=== PATIENT | male | born 1940 | race Caucasian/White ===

== ENCOUNTER 2023-05-29 15:45 | Outpatient (CLI) | payer MEDICARE, SELFPAY ==
--- NOTE | 2023-05-29 16:00 | MR_ITS ---
[facility] [place] [address] [facility] [address] Phone:?[phone] Fax:?[phone] Referring Physician Information: Nilson Chavez M.D. [address] [facility] [address] Phone:?[phone] Fax:?[phone] Patient:Tammy Hidalgo D.O.B:?1940 Sex:?Male Phone:?[phone] [facility] MRN:?[id number] Exam Date:?05/29/2023 EXAM: MRI EXAMINATION OF THE RIGHT WRIST WITHOUT & WITH CONTRAST CLINICAL INFORMATION: Male, 82 years old, with right wrist lump/swelling and history of prostate cancer. INDICATION: Evaluate wrist mass. PRIOR SURGERY: None reported. PLAIN FILMS: None available. COMPARISONS: No prior MRIs available. TECHNICAL INFORMATION: Using a 1.5T MR scanner and a localizing surface coil: coronals: T1, T2, PDFS, and T1FS sagittals: PDFS, T1FS axials: PD, PDFS, T1FS SEDATION: None CONTRAST: 20 mL of gadoterate meglumine was administered intravenously. FINDINGS: Bones and joints: Marked chondral thinning, osteophytosis, and irregularity throughout the distal radioulnar joint, with prominent subcortical cystic and/or erosive change in the distal ulna (axial PDFS series 15 image 11 and coronal T2FS series 12 image 21) this is associated with a large distal radioulnar joint effusion as well as nodular regions of synovitis dorsally measuring approximately 2.0 x 1.1 x 2.7 cm and volarly measuring 1.4 x 0.9 x 1.6 cm (axial PDFS series 15 image 11 and sagittal PDFS series 19 image 18). Moderate edema- like signal is present throughout the lunate and triquetrum with focal cystic/erosive changes throughout the trapezoid, capitate, and hamate. Mild chondral thinning and osteophytosis, and irregularity throughout the radiocarpal, STT, and 1st CMC joints. Triangular fibrocartilage: Chronic broad-based tearing throughout the foveal, ulnar styloid, and central disc of the TFCC. Additionally, the radial attachments are diminutive and irregular in appearance. Ligaments: Chronic disruption of the scapholunate ligaments with widening of the scapholunate interval to approximately 5 mm and early proximal migration of the capitate (axial PDFS series 15 image 6). Moderate thickening and irregularity of the lunotriquetral ligaments, without discrete tear. Alignment:?Type I lunate. The capitolunate angle measures 12? (<30? normal). The scapholunate angle measures 48? (30?-60? normal). Ulnar variance is 7 mm negative. Tendons: The flexor and extensor tendons are suboptimally visualized due to technical factors. However, there is no definite evidence of tendon disruption/tear. Neurovascular structures: The median nerve appears normal in caliber and signal intensity throughout its course including within the carpal tunnel. The ulnar nerve is intact and normal in appearance. No evidence for intrinsic/extrinsic mass within Guyon's canal. Soft tissues: No dorsal or other soft tissue ganglion cyst. No synovitis. IMPRESSION: 1. 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 Notably, there is a large joint effusion as well as nodular or regions of synovitis dorsally and volarly, the larger of which measures 2.0 x 1.1 x 2.7 cm and likely reflects the clinically palpable mass. There is no definite evidence of a suspicious soft tissue tissue or osseous lesion. The findings in the distal ulna likely reflect subchondral cystic change or erosions. 2. 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 3. Broad-based, chronic, high-grade tearing involving nearly the entire TFCC. 4. Mild osteoarthritis of the 1st CMC, STT, and radiocarpal joints. 5. Chronic low-grade sprains of the dorsal and volar lunotriquetral ligaments, without tear. 6. Moderate bone marrow edema throughout the lunate and capitate, likely degenerative. 7. No definite myotendinous abnormality. However, the flexor and extensor tendons are suboptimally visualized. BC Electronically signed on 05/30/2023 8:18:00 AM by Alexei Gaines M.D.
== END 2023-05-29 15:46 | disposition home or self-care (01) ==
PROVIDERS: PCP Orthopaedic Surgery; Visit Provider Orthopaedic Surgery
DX: R22.31 Localized swelling, mass and lump, right upper limb (principal); M19.031 Primary osteoarthritis, right wrist; S63.591A Other specified sprain of right wrist, initial encounter
CPT/HCPCS: 73223; A9575

== ENCOUNTER 2024-04-10 05:20 | Outpatient (CLI) | payer MEDICARE, SELFPAY | END 2024-04-10 05:21 | disposition home or self-care (01) | LOC: AMB 04-12 01:52 | PROVIDERS: Visit Provider Family Medicine | DX: R42 Dizziness and giddiness (principal) | CPT/HCPCS: A0998 ==

== ENCOUNTER 2024-07-09 13:00 | Outpatient (RCR) | payer MEDICARE, SELFPAY ==
--- OUTSIDE RECORDS SUMMARY | 2024-07-04 09:37 | XMS_ITS | Clinical Summary ---
Author Organization [facility] Address [place], [place] [address] Care Team Providers Care Candy Dipper Hand Name Role Phone Katarina Stiles Primary Care Provider [phone] Allergies Active Allergy Reactions Criticality Noted Date Comments Ceftriaxone Sodium Itching,Other - Desc ribe In Comment Field,Rash 02/26/2024 Enoxaparin Rash Medium 12/21/2012 Penicillins *Unknown,Rash Medium 12/21/2012 Per pt Sulfa (Sulfonamide Antibiotics) Rash,*Unknown Medium 12/21/2012 unsure Medications multivitamins with minerals tablet Take 1 Tab by mouth. Active ciclopirox 0.77% cream (LOPROX) 0.77 % cream Apply topically to affected area(s). 0 Active clobetasol cream 0.05% (TEMOVATE) 0.05 % cream Apply topically to affected area(s). 0 Active hydrocortisone 2.5% cream Apply to AA at bedtime PRN 9 Active gabapentin (NEURONTIN) 300 mg capsule Take 300 mg by mouth. 3 Active atorvastatin (LIPITOR) 40 mg tabletIndications :Coronary artery disease involving [place] coronary artery of [place] heart without angina pectoris Take 1 Tablet (40 mg) by mouth at bedtime. 90 Tablet 3 4 Active Eliquis 5 mg tabletIndications :Paroxysmal atrial fibrillation (HC) Take 1 Tablet (5 mg) by mouth two times daily. 180 Tablet 3 4 Active ferrous sulfate, 65 mg elemental, tabletIndications :Iron deficiency anemia secondary to inadequate dietary iron intake Take 1 Tablet (325 mg) by mouth once daily with a meal. 90 Tablet 3 4 Active nitroglycerin (NITROSTAT) 0.4 mg sublingual tabletIndications :Coronary artery disease involving [place] coronary artery of [place] heart without angina pectoris Place 1 Tablet (0.4 mg) under the tongue every 5 minutes if needed for Chest pain 1st choice. Up to 3 tablets in 15 minutes. 10 Tablet 1 4 Active traZODone (DESYREL) 100 mg tabletIndications :Insomnia, idiopathic Take 1 Tablet (100 mg) by mouth at bedtime. 90 Tablet 3 4 Active nystatin powder (MYCOSTATIN) powderIndications :Intertrigo Apply 1 Strip topically to affected area(s) 2 times daily if needed (Rash). 60 g 1 4 Active melatonin 10 mg tab Take 5 mg by mouth at bedtime. Active clindamycin (CLEOCIN) 300 mg capsule Take 2 Capsules (600 mg) by mouth one time if needed (take 2 capsules (600 mg) one hour prior to any dental cleanings). 4 Capsule 2 4 Active clindamycin (CLEOCIN) 300 mg capsuleIndication s:Joint Infection Take 1 Capsule (300 mg) by mouth three times daily. 4 Active torsemide (DEMADEX) 20 mg tabletIndications :Benign essential hypertension Take 1 Tablet (20 mg) by mouth once daily if needed (For weight gain above 3 pounds in 1 day OR 5 pounds in 1 week. SOB or edema.). HOLD for blood pressure readings less than 105/60mmHg. 30 Tablet 1 4 Active metoprolol tartrate (LOPRESSOR) 25 mg tabletIndications :Benign essential hypertension Take 1 Tablet (25 mg) by mouth two times daily. 4 Active sertraline (ZOLOFT) 50 mg tabletIndications :Recurrent major depressive disorder, in full remission (HC) TAKE ONE TABLET BY MOUTH ONE TIME DAILY ALONG WITH 25MG TABLET FOR A TOTAL OF 75MG DAILY 30 Tablet 1 4 Active sertraline (ZOLOFT) 25 mg tabletIndications :Recurrent major depressive disorder, in full remission (HC) TAKE ONE TABLET BY MOUTH ONE TIME DAILY ALONG WITH 50MG TABLET FOR A TOTAL OF 75MG DAILY 30 Tablet 1 4 Active Active Problems Problem Noted Date Diagnosed Date S/P primary angioplasty with coronary stent 12/2023 Impaired fasting glucose 01/10/2024 Paroxysmal atrial fibrillation 01/10/2024 Iron deficiency anemia curly boogie to inadequate dietary iron intake 01/10/2024 Presbycusis of both ears 01/10/2024 Alcohol abuse with alcohol-induced disorder 08/31 Anemia with low platelet count 09/11/2023 HTN (hypertension) 02/02/2020 CA (myocardial infarction) 02/02/2020 Venous (peripheral) insufficiency 06/05/2019 Erectile dysfunction following radical prostatec pam 03/22/2019 Overview (02/06/2020): Added automatically from request for surgery [id number] Aortic dilatation 07/04/2018 Hearing difficulty of both ears 07/04/2018 Cellulitis of right lower extremity 04/07/2017 Advanced directives, counseling/discussion 03/20 Overview (02/06/2020): Advance Care Planning 03/20/2017: ACP Review of Chart / Resources Provided: Reviewed chart for advance care plan. Jose Ambrosio Gwen has no plan or code status on file. Discussed available resources and provided with information. Added by Laura Casey Coronary artery disease without angina pectoris 01/18/2016 SHAYY (generalized anxiety disorder) 01/18/2016 Major depression in complete remission 5 Benign essential hypertension 04/20/2015 Hyperlipidemia LDL goal <70 04/20/2015 Overview (02/06/2020): Diagnosis updated by automated process. Provider to review and confirm. History of total right hip arthroplasty 12/23/19 15 Status post revision of total hip replacement Trigger finger, right 12/22/2014 Allergic rhinitis due to pollen 11/20/2014 Malignant neoplasm of prostate 12/25/2012 Encounters Date Type Department Care Team Description 06/11/2024 10:30 AM FILM INSPECTOR Office Visit [facility] [address] [place] [address] Cole Arrieta MD Follow Up (Chronic atrial fibrillation ) 06/10/2024 Travel 06/05/2024 8:30 AM FILM INSPECTOR Orders Only [facility] [address] [place] [address] Lab, [place] [facility] 06/04/2024 Travel 05/03/2024 Refill [facility] [address] [place] [address] Katarina Stiles PA Refill Request (Sertraline, Sertraline) 04/25/2024 3:20 PM CDT Office Visit [facility] [address] [place] [address] Roshan Gross MD Suture Removal (Rt arm) 04/24/2024 Travel 04/17/[address] [place] [id number] Roslyn Laughlin PA Refill Request 04/16/2024 2:55 PM CDT Office Visit [facility] [address] [place] [address] Roshan Gross MD Follow Up (Rt arm wound, sutures) 04/15/2024 Travel 04/15/2024 Telephone [facility] [address] [place] [address] Katarina Stiles PA Outside Order (Needs fax) 04/11/2024 9:00 AM CDT Office Visit [address] [place] [address] Roslyn Laughlin PA Follow Up (4 week f/u. Recent labs. /DX: Benign essential hypertension [I10] /PT states feeling fine. /Yesterday morning he fell when going to the bathroom .* He felt very lightheaded /was told to only take 1/2 of benadryl/ ) 04/11/2024 Travel 04/10/2024 11:45 AM CDT Orders Only [facility] [address] [place] [address] Lab, [place] [facility] 04/10/2024 9:10 AM CDT Office Visit [facility] [address] [place] [address] Roshan Gross MD Concerns (Fell this morning, rt arm wound) 04/10/2024 Travel 04/10/2024 Travel 04/08/2024 Telephone [facility] [address] [place] [address] Katarina Stiles PA Form from Last 3 Months Immunizations Name Administration Dates Next Due DTP-HIB 01/22/1992 Hep B (Hepatitis B (Adult) R ecombinant Adjuvanted) 03/23/2016 Influenza, High-dose Inactivated 03/29/2024 Influenza, High-dose Quadriv alent Inactivated 05/16/2023 Pneumococcal Conj 20-valent (Prevnar 20) 022 Pneumococcal Poly,23-Valent (Pneumovax) 04/04/20 18,04/15/2005,07/08/2004 Pneumococcal conj 13-Valent (Prevnar 13) 017,03/23/2016 Pneumococcal conj 7-Valent (Prevnar 7) 5 RSV, Recombinant ADJ Reconst ituted (Arexvy 120MCG/0.5mL) 06/02/2023 Tdap 02/06/2024,05/21/2013 Zoster (Shingrix-RZV, recombinant) 06/11/2018, Zoster (Zostavax-ZVL, live) 04/17/2012 Social History Tobacco Use Types Packs/Day Years Used Date Smoking Tobacco: Former Cigarettes Smokeless Tobacco: Never Tobacco Cessation:Counseling Given: Yes Alcohol Use Standard Drinks/Week Comments Yes 2 (1 standard drink = 0.6 oz pur e alcohol) daily C Utilities Answer Date Recorded Do you have trouble paying f or utilities (for example, heat, electricity, water, phone)? Yes 01/10/2024 PHQ-2 Answer Date Recorded PHQ-2 TOTAL SCORE 1 01/10/2024 Social Connections Answer Date Recorded Do you often feel lonely or isolated from those around you? 0 01/10/2024 Financial Resource Strain Answer Date R ecorded Difficulty of Paying Living Expenses 3 01/10/2024 Difficulty of Paying Living Expenses Not on file 01/10/2024 Food Insecurity Answer Date Recorded Do you worry your food will run out before you are able to buy more? 1 01/10/2024 Transportation Needs Answer Date Record ed Does lack of transportation keep you from medica l appointments? 1 01/10/2024 Does lack of transportation keep you from work, meetings or getting things that you need? 1 01/10/2024 Housing Stability Answer Date Recorded What is your housing situation today? 1 01/10/2024 Sex and Gender Information Value Date Recorded Sex Assigned at Not on file Legal Sex Male 1:51 PM CDT Gender Identity Not on file Sexual Orientation Not on file Obstetrics History Last Filed Vital Signs Vital Sign Reading Time Taken Comments Blood Pressure 120/78 06/11/2024 10:28 AM FILM INSPECTOR Pulse 71 06/11/2024 10:28 AM FILM INSPECTOR Temperature 36.9 C (98.4 F) 02/06/2024 8:36 AM CDT Respiratory Rate 16 09/11/2023 3:19 PM CDT Oxygen Saturation 94% 06/11/2024 10:28 AM FILM INSPECTOR Inhaled Oxygen Concentration - - Weight 97.3 kg (214 lb 6.4 oz) 04/25/2024 3:19 P M CDT Height 172.7 cm (5' 8) 04/11/2024 10:13 AM CDT Body Mass Index 32.6 04/11/2024 10:13 AM CDT Plan of Treatment Health Maintenance Due Date Last Done Comments Depression screening for age 12+ 01/09/2025 01/10/20 24, 05/11/2023 Medicare Wellness for age 65+ 01/10/2025 01/10/2024 BMI (ht and wt on same day) for age 18+ 04/11/2025 04/11/2024, 04/10/2024, 03/11/2024, Additional history exists Tetanus booster 02/05/2034 02/06/2024, 05/21/2013 Zoster (shingles) series for age 50+ Completed 06/11/2018, 04/04/2018, 04/17/2012 Pneumococcal series for age 50+ Completed 11/03/2021, 04/04/2018, 03/20/2017, Additional history exists RSV vaccine for adults or Completed 06/02/2023 Tdap Completed 02/06/2024, 05/21/2013 COVID-19 vaccine series Completed 03/29/20, 10/26/2023, 05/05/2023, Additional history exists Influenza for age 65+ Completed 03/29/2024, 023 Procedures Procedure Name Priority Date/Time Associated Diagnosis Comments PRO-BNP Routine 06/05/2024 8:27 AM FILM INSPECTOR Benign essential hypertension Shortness of breath Lower extremity edema BASIC METABOLIC PANEL Routine 06/05/2024 8:27 AM FILM INSPECTOR Benign essential hypertension Shortness of breath Lower extremity edema PRO-BNP Routine 04/10/2024 11:22 AM CDT Benign essential hypertension Permanent atrial fibrillation (HC) PVC's (premature ventricular contractions) Lower extremity edema Coronary artery disease, unspecified vessel or lesion type, unspecified whether angina present, unspecified whether [place] or transplanted heart Shortness of breath BASIC METABOLIC PANEL Routine 04/10/2024 11:22 AM CDT Benign essential hypertension from Last 3 Months Results * (ABNORMAL) PRO-BNP (06/05/2024 8:27 AM FILM INSPECTOR) Only the most recent of2 resultswithin the time period is included. Pathologist [facility] NT PROBNP 1,486(H) <450 pg/mL [facility] Blood BLOOD SPECIMEN / Unknown 06/05/2024 8:27 AM FILM INSPECTOR 06/05/2024 8:28 AM FILM INSPECTOR us Roslyn VARGHESE SEND OUTS Final Res ult [employer] [address] [facility] [place] [address], [employer] [address] [place] [address] * (ABNORMAL) BASIC METABOLIC PANEL (06/05/2024 8:27 AM FILM INSPECTOR) Only the most recent of2 resultswithin the time period is included. GLUCOSE 91 65 - 99 mg/dL [facility] Comment: Fasting reference interval UREA NITROGEN (BUN) 12 7 - 25 mg/dL [facility] CREATININE 0.82 0.70 - 1.22 mg/dL [facility] EGFR 88 > OR = 60 mL/min/1. 73m2 [facility] BUN/CREATININE RATIO SEE NOTE: 6 - 22 (calc) [facility] Comment: Not Reported: BUN and Creatinine are within reference range. SODIUM 132(L) 135 - 146 mmol/L [facility] POTASSIUM 4.5 3.5 - 5.3 mmol/L [facility] CHLORIDE 97(L) 98 - 110 mmol/L [facility] CARBON DIOXIDE 27 20 - 32 mmol/L [facility] ELECTROLYTE BALANCE 8 7 - 17 mmol/L (calc) [facility] CALCIUM 9.1 8.6 - 10.3 mg/dL [facility] Blood BLOOD SPECIMEN / Unknown 06/05/2024 8:27 AM FILM INSPECTOR 06/05/2024 8:28 AM FILM INSPECTOR Roslyn VARGHESE CHEMISTRY Final Res ult [employer] [facility] [address] [place] [address], [facility] [address] [place] [address] from Last [address] [place] [address] MEDICARE ADVANTAGE MR UCARE MEDICARE ADVANTAGE MR Care Teams Candy Dipper Hand Relationship Specialty Start Date End Date Katarina Stiles PA [address] [place] [address] PCP - General Physician Flap Curer 09/06/23
--- OUTSIDE RECORDS SUMMARY | 2024-07-04 09:38 | XMS_ITS | Encounter Summary ---
Author Organization [facility] Address [address] [facility] [place] [address] Care Team Providers Care Lapel Padder Name Role Phone Kathleen Strauss APRN CREW BOSS Primary Care Provider Kathleen Strauss APRN CREW BOSS Unavailable [phone] Donna Olivera PA-C Unavailable Eduar Brandon MD Unavailable Un available Yobani Amin MD Unavailable [phone] Yobani Amin MD Unavailable [phone] Rob Miller MD Unavailable [phone] Eduar Brandon MD Unavailable Un available Reason for Visit * Reason Comments Medication Refill Encounter Details Date Type Department Care Team (Late st Contact Info) Description 02/28/2023 Refill [facility] [place] [address] [place] [address] [address] [place] [address] Yobani Amin MD [address] [facility] [address] [place] [address] Medication Refill Social History Tobacco Use Types Packs/Day Years Used Date Smoking Tobacco: Former Cigarettes 0.5 10 0 12/31/1968 - 12/31/1978 Pipe Smokeless Tobacco: Never Alcohol Use Standard Drinks/Week Comments Yes 0 (1 standard drink = 0.6 oz pure alcohol) Trying to follow neurologist s recommendation of 1 drink/wk PHQ-2 Answer Date Recorded PHQ-2 Score 0 12/19/2022 Sex and Gender Information Value Date Recorded Sex Assigned at Male 05/22/2019 3:55 PM SOA ARCHITECT Legal Sex Male 4:06 AM SOA ARCHITECT Gender Identity Male 05/22/2019 3:55 PM SOA ARCHITECT Sexual Orientation Straight 01/07/2021 7: 03 AM CDT documented as of this encounter Miscellaneous Notes * Telephone Encounter - Maisha Crain MA - 02/28/2023 12:56 PM CDT DENY - Refills on file Refill request for: Gabapentin Directions: Take 1 capsule BID as needed documented in this encounter Plan of Treatment Upcoming Encounters Date Type Department Care Team (Late st Contact Info) Description 12/16/2024 10:10 AM CDT Office Visit [facility] [address] [address] Yobani Amin MD [address] [place] [address] documented as of this encounter Visit Diagnoses Diagnosis Neuropathy Mononeuritis of unspecified site Neuropathic pain Neuralgia, neuritis, and radiculitis, unspecified documented in this encounter Additional Health Concerns Assessment Noted Time PHQ-9 Depression Total Score: 1 12/20/19 23 8:10 AM CDT documented as of this encounter Care Teams Lapel Padder Relationship Specialty Start Date End Date Kathleen Strauss APRN CREW BOSS [address] [place] [address] PCP - General Nurse Practitioner - Family 02/19/18 Kathleen Strauss APRN CREW BOSS [address] [place] [address] Assigned PCP 03/04/18 Donna Olivera PA-C [address] [place] [address] Physician Pad Making Machine Operator Dermatology 01/15/21 Eduar Brandon MD [address] [place] [address] Cardiovascular Disease 05/02/22 Yobani Amin MD [address] [place], [place] [id number] Neurology 08/29/22 Yobani Amin MD [address] [place] [address] Assigned Neuroscience Provider 09/10/22 Rob Miller MD [address] [place] [address] Dermatology 12/19/22 Eduar Brandon MD Assigned Heart and Vascular Provider 12/10/22 06/23/24 documented as of this encounter
--- OUTSIDE RECORDS SUMMARY | 2024-07-04 09:38 | XMS_ITS | Encounter Summary ---
Author Organization [place] Address [address] [facility] [place] [address] Care Team Providers Care Biller Name Role Phone Kathleen Strauss APRN CAR CHASER Primary Care Provider Kathleen Strauss APRN CAR CHASER Unavailable Donna Olivera PA-C Unavailable Eduar Brandon MD Unavailable Un available Eduar Brandon MD Unavailable Un available Jelena Resendiz APRN CAR CHASER Unavailable Yobani Amin MD Unavailable [phone] Yobani Amin MD Unavailable [phone] Rob Miller MD Unavailable [phone] Eduar Brandon MD Unavailable Un available Reason for Visit * Reason Onset Date Comments fall04/28/2022 Encounter Details Date Type Department Care Team (Late st Contact Info) Description 04/28/2022 Teresa Medical Advice [facility] [address] [place] [phone] Kathleen Strauss APRN CAR CHASER [address] [place] [address] Fall Social History Tobacco Use Types Packs/Day Years Used Date Smoking Tobacco: Former Cigarettes Q uit: 12/31/1978 Smokeless Tobacco: Never Alcohol Use Standard Drinks/Week Comments Yes 0 (1 standard drink = 0.6 oz pur e alcohol) oCCASIONAL PHQ-2 Answer Date Recorded PHQ-2 Score 1 09/30/2021 Sex and Gender Information Value Date Recorded Sex Assigned at Male 05/22/2019 3:55 PM MANUFACTURED BUILDINGS SUPERVISOR Legal Sex Male 4:06 AM MANUFACTURED BUILDINGS SUPERVISOR Gender Identity Male 05/22/2019 3:55 PM MANUFACTURED BUILDINGS SUPERVISOR Sexual Orientation Straight 01/07/2021 7: 03 AM CDT COVID-19 Exposure Response Date Recorded In the last 10 days, have yo u been in contact with someone who was confirmed or suspected to have Coronavirus/COVID-19? No / Unsure 04/29/2022 10:45 AM CDT documented as of this encounter Miscellaneous Notes * Telephone Encounter - Lenore Wei RN - 04/28/2022 3:44 PM CDTSumroslyn: FRANK Cristel stated that it all happened so fast, he is not sure what he hit, or if he hit his head. He did state that his chest are has been achy since he fell. Materials Coordinator stated that he should be seen in the ED now, and they both agree and will go to the ED in [place]. Lenore Wei RN documented in this encounter Plan of Treatment Upcoming Encounters Date Type Department Care Team (Late st Contact Info) Description 12/16/2024 10:10 AM CDT Office Visit [facility] [address] [address] [place] [address] [place] [address] [address] [place] [address] documented as of this encounter Visit Diagnoses Not on filedocumented in this encounter Additional Health Concerns Infection Onset Date Last Indicated Resolved Time Rule Out COVID-19 04/29/2022 04/29/2022 04/29/2022 11:54 PM CDT Assessment Noted Time PHQ-9 Depression Total Score: 0 10/01/19 8:15 AM CDT documented as of this encounter Care Teams Biller Relationship Specialty Start Date End Date Kathleen Strauss APRN CAR CHASER [address], [place] [address] PCP - General Nurse Practitioner - Family 02/19/18 Kathleen Strauss APRN CAR CHASER [address], [place] [address] Assigned PCP 03/04/18 Donna Olivera PA-C [address] [place] [address] Physician Clinical Business Analyst Dermatology 01/15/21 Eduar Brandon MD [address] [place] [address] Cardiovascular Disease 05/02/22 Eduar Brandon MD Assigned Heart and Vascular Provider 05/21/22 06/24/22 Jelena Resendiz APRN CAR CHASER [address] [place] [address] Assigned Heart and Vascular Provider 06/25/22 12/09/22 Yobani Amin MD [address] [place] [address] [place] [address] Neurology 08/29/22 Yobani Amin MD [address] [place] [address] Assigned Neuroscience Provider 09/10/22 Rob Miller MD [address] [place] [address] Dermatology 12/19/22 Eduar Brandon MD Assigned Heart and Vascular Provider 12/10/22 06/23/24 documented as of this encounter
--- OUTSIDE RECORDS SUMMARY | 2024-07-04 09:38 | XMS_ITS | Encounter Summary ---
Author Organization [place] Address [address] [facility] [place] [address] Care Team Providers Care Hhas Name Role Phone Kathleen Strauss APRN CAR SALES ASSOCIATE Primary Care Provider Kathleen Strauss APRN CAR SALES ASSOCIATE Unavailable [phone] Donna Olivera PA-C Unavailable Eduar Brandon MD Unavailable Un available Yobani Amin MD Unavailable [phone] Yobani Amin MD Unavailable [phone] Rob Miller MD Unavailable [phone] Eduar Brandon MD Unavailable Un available Encounter Details Date Type Department Care Team (Late st Contact Info) Description 01/22/[address] [facility] [address] [place] [address] Devaughn Grimes MD [facility] [address] [address] Hip pain (Primary Dx) Social History Tobacco Use Types Packs/Day Years Used Date Smoking Tobacco: Former Cigarettes 0.5 10 0 12/31/1968 - 12/31/1978 Pipe Smokeless Tobacco: Never Alcohol Use Standard Drinks/Week Comments Yes 0 (1 standard drink = 0.6 oz pure alcohol) Trying to follow neurologist s recommendation of 1 drink/wk PHQ-2 Answer Date Recorded PHQ-2 Score 0 12/19/2022 Adolescent Education Answer Date Record ed Getting School Help Needed Not on file 04/17 Sex and Gender Information Value Date Recorded Sex Assigned at Male 05/22/2019 3:55 PM UPHOLSTERY SEWER Legal Sex Male 4:06 AM UPHOLSTERY SEWER Gender Identity Male 05/22/2019 3:55 PM UPHOLSTERY SEWER Sexual Orientation Straight 01/07/2021 7: 03 AM CDT documented as of this encounter Plan of Treatment Upcoming Encounters Date Type Department Care Team (Late st Contact Info) Description 12/16/2024 10:10 AM CDT Office Visit [facility] Neurology Clinic [address] [place] [address] [place] [phone] Yobani Amin MD [address] [place] [address] [address] [place], [place] [id number] documented as of this encounter Results * (ABNORMAL) Erythrocyte sedimentation rate auto (01/24/2024 1:49 PM CDT) [facility] Erythrocyte Sedimentation Rate 36(H) 0 - 20 mm/hr 01/24/2024 2:30 PM CDT LABORATORY Blood STRUCTURE OF RIGHT UPPER LIMB / Unknown Venipuncture / Unknown 01/24/2024 1:49 PM CDT 01/24/2024 1:49 PM CDT us Devaughn Grimes MD LAB - BLOOD ORDERABLE S Final Result LABORATORY [facility] [address] [facility] (1st floor, no room number) [place] [address], [facility] * (ABNORMAL) CRP inflammation (01/24/2024 1:49 PM CDT) Pathologist [facility] CRP Inflammation 112.22(H) <5.00 mg/L 01/24/2024 2:08 PM CDT LABORATORY Blood STRUCTURE OF RIGHT UPPER LIMB / Unknown Venipuncture / Unknown 01/24/2024 1:49 PM CDT 01/24/2024 1:49 PM CDT us Devaughn Grimes MD LAB - BLOOD ORDERABLE S Final Result LABORATORY [facility] [address] [facility] (1st floor, no room number) [place] [address] documented in this encounter Visit Diagnoses Diagnosis Hip pain- Primary Pain in joint, pelvic region and thigh documented in this encounter Additional Health Concerns Assessment Noted Time PHQ-9 Depression Total Score: 1 12/20/19 23 8:10 AM CDT documented as of this encounter Care Teams Hhas Relationship Specialty Start Date End Date Kathleen Strauss APRN CAR SALES ASSOCIATE [address] [place] [address] PCP - General Nurse Practitioner - Family 02/19/18 Kathleen Strauss APRN CAR SALES ASSOCIATE [address] [place] [address] Assigned PCP 03/04/18 Donna Olivera PA-C [address] [place] [address] Physician Currency Machine Operator Dermatology 01/15/21 Eduar Brandon MD [address] [place] [address] Cardiovascular Disease 05/02/22 Yobani Amin MD [address] [place] [address] [place] [address] Neurology 08/29/22 Yobani Amin MD [address] [place] [address] [place] [address] Assigned Neuroscience Provider 09/10/22 Rob Miller MD [address] [place] [address] Dermatology 12/19/22 Eduar Brandon MD Assigned Heart and Vascular Provider 12/10/22 06/23/24 documented as of this encounter
--- OUTSIDE RECORDS SUMMARY | 2024-07-04 09:38 | XMS_ITS | Encounter Summary ---
Author Organization [place] Address [address] [facility] [place] [address] Care Team Providers Care Triage Nurse Name Role Phone Kathleen Strauss APRN MEAT STOCKER Primary Care Provider Kathleen Strauss APRN MEAT STOCKER Unavailable [phone] Donna Olivera PA-C Unavailable [phone] Eduar Brandon MD Unavailable Un available Yobani Amin MD Unavailable [phone] Yobani Amin MD Unavailable [phone] Rob Miller MD Unavailable [phone] Eduar Brandon MD Unavailable Un available Encounter Details Date Type Department Care Team (Latest Contact Info) Description 06/17/2024 Travel Social History Tobacco Use Types Packs/Day Years [...] Sex Assigned at Male 05/22/2019 3:55 PM TELEVISION PRODUCTION TECHNICIAN Legal Sex Male 4:06 AM TELEVISION PRODUCTION TECHNICIAN Gender Identity Male 05/22/2019 3:55 PM TELEVISION PRODUCTION TECHNICIAN Sexual Orientation Straight 01/07/2021 7: 03 AM CDT documented as of this encounter Plan of Treatment Upcoming Encounters Date Type Department Care Team (Late st Contact Info) Description 12/16/2024 10:10 AM CDT Office Visit [facility] [address] [place] [address] Yobani Amin MD [address] [place] [address] documented as of this encounter Goals Goal Patient Goal Type Associated Problems Recent Progress Patient-Stated? 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 Assessment Noted Time PHQ-9 Depression Total Score: 1 12/20/19 23 8:10 AM CDT documented as of this encounter Care Teams Triage Nurse Relationship Specialty Start Date End Date Kathleen Strauss APRN MEAT STOCKER [address] [place] [address] PCP - General Nurse Practitioner - Family 02/19/18 Kathleen Strauss APRN MEAT STOCKER [address] [place] [address] Assigned PCP 03/04/18 Donna Olivera PA-C [facility] [place] [address] Physician Developmental Writing Instructor Dermatology 01/15/21 Eduar Brandon MD [address] [place] [address] Cardiovascular Disease 05/02/22 Yobani Amin MD [address] [place] [place] [address] Neurology 08/29/22 Yobani Amin MD [address] [place] [address] [place] [address] Assigned Neuroscience Provider 09/10/22 Rob Miller MD [address] [place] [address] Dermatology 12/19/22 Eduar Brandon MD Assigned Heart and Vascular Provider 12/10/22 06/23/24 documented as of this encounter
--- OUTSIDE RECORDS SUMMARY | 2024-07-04 09:38 | XMS_ITS | Encounter Summary ---
Author Organization [place] Address [address] [facility] [place] [address] Care Team Providers Care Senior Clinical Data Manager Name Role Phone Kathleen Strauss APRN COLLECTION MANAGER Primary Care Provider Kathleen Strauss APRN COLLECTION MANAGER Unavailable [phone] Donna Olivera PA-C Unavailable Eduar Brandon MD Unavailable Un available Eduar Brandon MD Unavailable Un available Jelena Resendiz APRN COLLECTION MANAGER Unavailable Yobani Amin MD Unavailable [phone] Yobani Amin MD Unavailable [phone] Rob Miller MD Unavailable [phone] Eduar Brandon MD Unavailable Un available Encounter Details Date Type Department Care Team (Late st Contact Info) Description 04/22/[address] [phone] Jamilah Alcantar Social History Tobacco Use Types Packs/Day Years Used Date Smoking Tobacco: Former Cigarettes Q uit: 12/31/1978 Smokeless Tobacco: Never Alcohol Use Standard Drinks/Week Comments Yes 0 (1 standard drink = 0.6 oz pur e alcohol) oCCASIONAL PHQ-2 Answer Date Recorded PHQ-2 Score 1 09/30/2021 Sex and Gender Information Value Date Recorded Sex Assigned at Male 05/22/2019 3:55 PM NEEDLE MOLDER Legal Sex Male 4:06 AM NEEDLE MOLDER Gender Identity Male 05/22/2019 3:55 PM NEEDLE MOLDER Sexual Orientation Straight 01/07/2021 7 :03 AM CDT documented as of this encounter Miscellaneous Notes * Telephone Encounter - Precious Mclain - 04/22/2022 1:34 PM CDT Pt does have home test and will do one at home call us back. Precious [place] Sec documented in this encounter Plan of Treatment Upcoming Encounters Date Type Department Care Team (Late st Contact Info) Description 12/16/2024 10:10 AM CDT Office Visit [facility] Neurology Clinic [address] [address] Yobani Amin MD [address] [place] [address] documented as of this encounter Visit Diagnoses Not on filedocumented in this encounter Additional Health Concerns Infection Onset Date Last Indicated Resolved Time Rule Out COVID-19 04/29/2022 04/29/2022 04/29/2022 11:54 PM CDT Assessment Noted Time PHQ-9 Depression Total Score: 0 10/01/19 22 8:15 AM CDT documented as of this encounter Care Teams Senior Clinical Data Manager Relationship Specialty Start Date End Date Kathleen Strauss APRN COLLECTION MANAGER [address] [place] [address] PCP - General Nurse Practitioner - Family 02/19/18 Kathleen Strauss APRN COLLECTION MANAGER [address] [place] [address] Assigned PCP 03/04/18 Donna Olivera PA-C [address] [place] [address] Physician Pigment Grinder Dermatology 01/15/21 Eduar Brandon MD [address] [place] [address] Cardiovascular Disease 05/02/22 Eduar Brandon MD Assigned Heart and Vascular Provider 05/21/22 06/24/22 Jelena Resendiz APRN COLLECTION MANAGER [address] [place] [address] Assigned Heart and Vascular Provider 06/25/22 12/09/22 Yobani Amin MD [address] [place] [address] Neurology 08/29/22 Yobani Amin MD [address] [place] [address] Assigned Neuroscience Provider 09/10/22 Rob Miller MD [address] [place] [address] Dermatology 12/19/22 Eduar Brandon MD Assigned Heart and Vascular Provider 12/10/22 06/23/24 documented as of this encounter"
--- OUTSIDE RECORDS SUMMARY | 2024-07-04 09:38 | XMS_ITS | Encounter Summary ---
Author Organization [place] Address [address] [facility] [place] [address] Care Team Providers Care Applications Development Analyst Name Role Phone Kathleen Strauss APRN POLE FRAMER MACHINE Primary Care Provider Kathleen Strauss APRN POLE FRAMER MACHINE Unavailable [phone] Donna Olivera PA-C Unavailable [phone] Eduar Brandon MD Unavailable Un available Yobani Amin MD Unavailable [phone] Yobani Amin MD Unavailable [phone] Rob Miller MD Unavailable [phone] Eduar Brandon MD Unavailable Un available Encounter Details Date Type Department Care Team (Latest Contact Info) Description 07/21/2023 MyC Medical Advice [facility] [address] [place] [phone] Kathleen Strauss APRN POLE FRAMER MACHINE [address] [place] [address] Benign essential hypertension Social History Tobacco Use Types Packs/Day Years [...] Sex Assigned at Male 05/22/2019 3:55 PM BANANA EXPERT Legal Sex Male 4:06 AM BANANA EXPERT Gender Identity Male 05/22/2019 3:55 PM BANANA EXPERT Sexual Orientation Straight 01/07/2021 7: 03 AM CDT documented as of this encounter Miscellaneous Notes * Telephone Encounter - Divina Ward RN - 07/21/2023 12:06 PM CST Routed to refill pool. Divina Ward RN NA EXPERT documented in this encounter Plan of Treatment Upcoming Encounters Date Type Department Care Team (Late st Contact Info) Description 12/16/2024 10:10 AM CDT Office Visit [facility] Neurology Clinic [address] [address] Yobani Amin MD [address] [place] [address] documented as of this encounter Visit Diagnoses Diagnosis Benign essential hypertension Essential hypertension, benign documented in this encounter Additional Health Concerns Assessment Noted Time PHQ-9 Depression Total Score: 1 12/20/19 23 8:10 AM CDT documented as of this encounter Care Teams Applications Development Analyst Relationship Specialty Start Date End Date Kathleen Strauss APRN POLE FRAMER MACHINE [address] [place] [address] PCP - General Nurse Practitioner - Family 02/19/18 Kathleen Strauss APRN POLE FRAMER MACHINE [address] [place] [address] Assigned PCP 03/04/18 Donna Olivera PA-C [address] [place] [address] Physician Hand Etcher Dermatology 01/15/21 Eduar Brandon MD [address] [place] [address] Cardiovascular Disease 05/02/22 Yobani Amin MD [address] [place], [place] [address] Neurology 08/29/22 Yobani Amin MD [address] [place], [place] [address] Assigned Neuroscience Provider 09/10/22 Rob Miller MD [address] [place] [address] Dermatology 12/19/22 Eduar Brandon MD Assigned Heart and Vascular Provider 12/10/22 06/23/24 documented as of this encounter
--- OUTSIDE RECORDS SUMMARY | 2024-07-04 09:38 | XMS_ITS | Referral Summary ---
Author Organization [facility] Address [address] [facility] [place] [address] Care Team Providers Care Loom Stop Checker Name Role Phone Kathleen Strauss APRN MEDIA AID Primary Care Provider Kathleen Strauss APRN MEDIA AID Unavailable [phone] Donna Olivera PA-C Unavailable [phone] Eduar Brandon MD Unavailable Un available Yobani Amin MD Unavailable [phone] Yobani Amin MD Unavailable [phone] Rob Miller MD Unavailable [phone] Encounters Date Type Department Care Team Description 06/17/2024 Travel 06/17/2024 12:35 PM VOCATIONAL EVALUATOR Lab 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) (Primary Dx) from Last 3 Months Allergies Active Allergy Reactions Criticality Noted Date Comments Enoxaparin Rash Low 03/04/2015 No Clinical Screening - See Comments Low 12/21/2012 seasonal allergies - Stuffy head, itchy eyes Penicillins Rash Low 03/04/2015 Per pt Sulfa Antibiotics Rash Low 03/04/2015 Medications Tererro-3 Fatty Acids (OMEGA-3 FISH OIL PO) Take 1 g by mouth daily Active multivitamin w/minerals (THERA-VIT-M) tablet Take 1 tablet by mouth daily Active DESENEX 2 % external powderIndications :Tinea corporis APPLY TO AFFECTED AREA(S) NEEDED FOR ITCHING OR RASH 90 g 3 1 Active sertraline (ZOLOFT) 50 MG tabletIndications :Major depression in complete remission (H) TAKE ONE TABLET BY MOUTH ONCE DAILY 90 tablet 3 3 Active nitroGLYcerin (NITROSTAT) 0.4 MG sublingual tabletIndications :Coronary artery disease involving [place] coronary artery of [place] heart without angina pectoris For chest pain place 1 tablet under the tongue every 5 minutes for 3 doses. If symptoms persist 5 minutes after 1st dose call 911. 25 tablet 4 3 Active apixaban ANTICOAGULANT (ELIQUIS ANTICOAGULANT) 5 MG tabletIndications :Aortic dilatation (H) Take 1 tablet (5 mg) by mouth 2 times daily 180 tablet 3 3 Active ferrous sulfate (FEROSUL) 325 (65 Fe) MG tabletIndications :Anemia with low platelet count (H) Take 1 tablet (325 mg) by mouth every other day 90 tablet 3 3 Active atorvastatin (LIPITOR) 40 MG tabletIndications :Hyperlipidemia LDL goal <130 TAKE 1 TABLET (40 MG) BY MOUTH DAILY 90 tablet 2 3 Active traZODone (DESYREL) 100 MG tabletIndications :Insomnia, unspecified type TAKE ONE TABLET BY MOUTH ONCE DAILY AT BEDTIME 90 tablet 2 3 Active amLODIPine (NORVASC) 5 MG tabletIndications :Essential hypertension, benign TAKE 1 TABLET BY MOUTH DAILY 90 tablet 1 4 Active sertraline (ZOLOFT) 25 MG tabletIndications :Major depressive disorder with single episode, in full remission (H) TAKE 1 TABLET (25 MG) BY MOUTH DAILY TAKE WITH THE 50 MG TABLET FOR A TOTAL OF 75 MG DAILY. 90 tablet 3 4 Active gabapentin (NEURONTIN) 300 MG capsuleIndication s:Neuropathy,Neur opathic pain Take 1 capsule (300 mg) by mouth 2 times daily 180 capsule 3 4 Active miconazole (MICATIN) 2 % external powder Apply topically 2 times daily as needed for itching or other Active nystatin (MYCOSTATIN) 056419 UNIT/GM external cream Apply topically 2 times daily as needed for dry skin Active nystatin (MYCOSTATIN) 273380 UNIT/GM external powder Apply topically 2 times daily as needed Active triamcinolone (KENALOG) 0.1 % external cream Apply topically 2 times daily as needed for irritation Active metoprolol tartrate 37.5 MG TABSIndications:P ersistent atrial fibrillation (H),Benign essential hypertension,Demond nary artery disease involving [place] coronary artery of [place] heart without angina pectoris,Hyperlip idemia LDL goal <70 Take 37.5 mg by mouth at bedtime 4 Active metoprolol tartrate (LOPRESSOR) 25 MG tabletIndications :Persistent atrial fibrillation (H),Benign essential hypertension,Demond nary artery disease involving [place] coronary artery of [place] heart without angina pectoris,Hyperlip idemia LDL goal <70 Take 1 tablet (25 mg) by mouth daily 4 Active cefTRIAXone (ROCEPHIN) 1 GM vialIndications:I nfection of prosthetic joint, initial encounter (H) Inject 2 g (2,000 mg) into the vein daily ESR,CRP,CBC with differential, creatinine, SGOT weekly while on this medication to be faxed to Dr. Chaves office. 4 Active oxyCODONE (ROXICODONE) 5 MG tabletIndications :S/P revision of total hip Take 0.5 tablets (2.5 mg) by mouth every 4 hours as needed for severe pain 10 tablet 4 Active hydrOXYzine HCl (ATARAX) 25 MG tabletIndications :S/p bilateral revision of total hip arthroplasty Take 1-2 tablets (25-50 mg) by mouth every 6 hours as needed for other (muscle spasms) 4 Active acetaminophen (TYLENOL) 325 MG tabletIndications :S/p bilateral revision of total hip arthroplasty Take 2 tablets (650 mg) by mouth every 6 hours 4 Active senna-docusate (SENOKOT-S/ISIDRO LACE) 8.6-50 MG tabletIndications :S/p bilateral revision of total hip arthroplasty Take 1 tablet by mouth 2 times daily 4 Active Active Problems Problem Noted Date Diagnosed Date 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 Persistent atrial fibrillation 06/17/2022 Alcohol abuse with alcohol-induced disorder 12/31 Anemia with low platelet count 01/12/2021 KS (myocardial infarction) 02/02/2020 HTN (hypertension) 02/02/2020 Venous (peripheral) insufficiency 06/05/2019 Hearing difficulty of both ears 07/04/2018 Aortic dilatation 07/04/2018 Cellulitis of right lower extremity 04/07/2017 SHAYY (generalized anxiety disorder) 01/18/2016 Coronary artery disease invo lving oscarville coronary artery of [place] heart without angina pectoris 01/18/2016 Major depression in complete remission 5 Hyperlipidemia LDL goal <70 04/20/2015 Overview (05/04/2015): Diagnosis updated by automated process. Provider to review and confirm. Benign essential hypertension 04/20/2015 Malignant neoplasm of prostate 12/25/2012 Resolved Problems Problem Noted Date Diagnosed Date Resolved Date Pressure ulcer of buttock, right, unstageable 01/13/20 21 12/19/2022 Advanced directives, counseling/discussion 03/20/2017 12/18/2023 Overview (03/20/2017): Advance Care Planning 03/20/2017: ACP Review of Chart / Resources Provided: Reviewed chart for advance care plan. Jose Ambrosio Gwen has no plan or code status on file. Discussed available resources and provided with information. Added by Laura Casey Immunizations Name Administration Dates Next Due COVID-19 MONOVALENT 12+ (Pfizer) 04/06/2021,03/0 07/2020,08/10/2020 DTP-Hib 01/22/1992 INFLUENZA,TRIVALENT (FLUCELVAX) 03/23/2016 Influenza (H1N1) 07/14/2009 Influenza (High Dose) Trival ent,PF (Fluzone) 04/10/2019,04/26/2018,03/20/2017,2014,04/21/2014,05/27/2012 Influenza (IIV3) PF 04/23/2012, 0,06/18/2004,2002 Influenza (prior to 2023) 04/26/2018 Influenza Vaccine 65+ (Fluzone HD) 03/31/2021,,05/27/2012 Influenza Vaccine, 6+MO IM (QUADRIVALENT W/PRESERVATIVES) 05/22/2015 Influenza,INJ,MDCK,PF,Quad >6mo(Flucelvax) 04/16/2022 Pneumo Conj 13-V (2010&after) 03/20/2017, 016 Pneumococcal (PCV 7) 07/08/2004 Pneumococcal 20 valent Conju gate (Prevnar 20) 11/03/2021 Pneumococcal 23 valent 04/04/2018,04/15/2005,12/2004 TDAP (Adacel,Boostrix) 05/21/2013 Zoster recombinant adjuvante d (SHINGRIX) 06/11/2018,04/04/2018 Zoster vaccine, live 04/17/2012 Social History Tobacco Use Types Packs/Day Years Used Date Smoking Tobacco: Former Cigarettes 0.5 10 0 12/31/1968 - 12/31/1978 Pipe Smokeless Tobacco: Never Tobacco Cessation:Counseling Given: Not Answered Alcohol Use Standard Drinks/Week Comments Yes 0 (1 standard drink = 0.6 oz pure alcohol) Trying to follow neurologist s recommendation of 1 drink/wk PHQ-2 Answer Date Recorded PHQ-2 Score 0 12/19/2022 Adolescent Education Answer Date Record ed Getting School Help Needed Not on file 04/17 Sex and Gender Information Value Date Recorded Sex Assigned at Male 05/22/2019 3:55 PM VOCATIONAL EVALUATOR Legal Sex Male 4:06 AM VOCATIONAL EVALUATOR Gender Identity Male 05/22/2019 3:55 PM VOCATIONAL EVALUATOR Sexual Orientation Straight 01/07/2021 7: 03 AM CDT Last Filed Vital Signs Vital Sign Reading Time Taken Comments Blood Pressure 119/73 02/13/2024 7:12 AM CDT Pulse 79 02/13/2024 7:12 AM CDT Temperature 36.8 C (98.2 F) 02/13/2024 7:12 AM CDT Respiratory Rate 16 02/13/2024 7:12 AM CDT Oxygen Saturation 98% 02/13/2024 7:12 AM CDT Inhaled Oxygen Concentration - - Weight 96.6 kg (212 lb 15.4 oz) 02/12/2024 6:15 AM CDT Height 175.3 cm (5' 9) 02/07/2024 4:15 PM CDT Body Mass Index 31.45 02/07/2024 4:15 PM CDT Plan of Treatment Upcoming Encounters Date Type Department Care Team (Late st Contact Info) Description 12/16/2024 10:10 AM CDT Office Visit [facility] [place] [address] [place] [phone] Yobani Amin MD [address] [place] [address] Goals Goal Patient Goal Type Associated Problems Recent Progress Patient-Stated? Author Total Joint Replacement Hip Pathway Care Plan Total Joint Replacement Hip Pathway No Ivonne [employer] Devices Implanted Type Area Grading Clerk Device Identifier Shelf Expiration Date Model / Serial / Lot Imp Fitzhugh Arthrex Bio-Swivelock 4.75x19.1mm [id number] Implanted:Qty: 1 on 11/29/2017 by Kevin Acevedo MD at [facility] Metallic Hardware/A nchor Right: Shoulder ARTHREX 08/31/2019 AR-2324BCC / / [id number] Imp Fitzhugh Arthrex Bio-Swivlk W/F Tape 4.75mm [id number] Implanted:Qty: 1 on 08/23/2018 by Kevin Acevedo MD at [facility] Metallic Hardware/A nchor Right: Shoulder ARTHREX 07/02/2020 AR-2600SBS- 4 / / [id number] Imp Scr Zim 6.5x20mm Acet Cup Self Tap 33-3101-876-20 - [id number] Implanted:Qty: 1 on 02/07/2024 by Devaughn Grimes MD at [facility] Metallic Hardware/A nchor Right: Hip [employer]EV[employer] 08/04/20336250-065 -20 / / [id number] Imp Scr Zim 6.5x15mm Acet Cup Self Tap 15-1818-883-15 - [id number] Implanted:Qty: 1 on 02/07/2024 by Devaughn Grimes MD at [facility] Metallic Hardware/A nchor Right: Hip [employer] 09/23/2032065 - / / [id number] Imp Scr Zim 6.5x15mm Acet Cup Self Tap 64-1818-094-15 - [id number] Implanted:Qty: 1 on 02/07/2024 by Devaughn Grimes MD at [facility] Metallic Hardware/A nchor Right: Hip [employer] 05/30/2033-065 - / / [id number] Imp Scr Zim 6.5x20mm Acet Cup Self Tap 85-6354-437-20 - [id number] Implanted:Qty: 1 on 02/07/2024 by Devaughn Grimes MD at [facility] Metallic Hardware/A nchor Right: Hip [employer] 09/05/2032065 / / [id number] Imp Scr Syn Canc 6.1w925df Ft Ss 218.035 - [id number] Implanted:Qty: 1 on 02/07/2024 by Devaughn Grimes MD at [facility] Metallic Hardware/A nchor Right: Hip SYNTHES-STRATEC 218.035 / / [id number] OCT 2023 Imp Scr Syn Canc 6.5z955nm Ft Ss 218.040 - [id number] Implanted:Qty: 1 on 02/07/2024 by Devaughn Grimes MD at [facility] Metallic Hardware/A nchor Right: Hip SYNTHES-STRATEC 218.040 / / [id number] 13 OCT 2023 Imp Scr Zim 6.5x20mm Acet Cup Self Tap 28-5522-998-20 - [id number] Implanted:Qty: 1 on 02/07/2024 by Devaughn Grimes MD at [facility] Metallic Hardware/A nchor Right: Hip [employer] 01/30/2033 00-6250-065 -20 / / [id number] 64mm Acetabular Shell Multi Hole Implanted:Qty: 1 on 02/07/2024 by Devaughn Grimes MD at [facility] Total Joint Component/ Insert Right: Hip BIOMET 10/03/2033 [id number] / / [id number] Highly Crosslinked Polyethylene Liner, Neutral, 40mm I.D., Size H Implanted:Qty: 1 on 02/07/2024 by Devaughn Grimes MD at [facility] Total Joint Component/ Insert Right: Hip STEVEN 08/04/2027 [id number] / / [id number] Biomet Femoral Head Type 1 Taper, 40mm, +9 Implanted:Qty: 1 on 02/07/2024 by Devaughn Grimes MD at [facility] Total Joint Component/ Insert Right: Hip BIOMET 09/19/2028 [id number] / / [id number] Wire Daniela 0.062x4 Implanted:Qty: 2 on 04/21/2015 by Kb Garcia DPM at [facility] Left: Foot [employer]- 1646-10-000 / / Imp Scr Arthrex Tenodesis Biocomp 3x8mm [id number] Implanted:Qty: 1 on 04/21/2015 by Kb Garcia DPM at [facility] Left: Foot ARTHREX 07/02/2016 AR-1530BC / / [id number] Pip Dart, 10 Bend, 2.5x30mm Implanted:Qty: 2 on 04/21/2015 by Kb Garcia DPM at [facility] Left: Foot ARTHREX 10/31/2019 AR-4154P-3 0 10 / / [id number] Imp Scr Arthrex Quickfix Canc Pt 3.0x24mm Ti [id number] Implanted:Qty: 1 on 04/21/2015 by Kb Garcia DPM at [facility] Left: Foot ARTHREX AR-8730-24 P T / / Imp Scr Arthrex Quickfix Lt Blue 3x15mm Ar-8931-15 Implanted:Qty: 1 on 04/21/2015 by Kb Garcia DPM at [facility] Left: Foot ARTHREX AR-8931-15 / / Imp Scr Arthrex Quickfix Aqua 3x17mm [id number]-8931-17 Implanted:Qty: 1 on 04/21/2015 by Kb Garcia DPM at [facility] Left: Foot ARTHREX AR-8931-17 / / Imp Plate Arthrex Low Pro Mtp Cntrd Short Lt Ti Ar-8944cl-S Implanted:Qty: 1 on 04/21/2015 by Kb Garcia DPM at [facility] Left: Foot ARTHREX AR-8944CL- S / / Imp Scr Arthrex Mtp Lp Cortical 3x16mm Ti Ar-8933-16 Implanted:Qty: 1 on 04/21/2015 by Kb Garcia DPM at [facility] Left: Foot ARTHREX AR-8933-16 / / 3.0 Jeni Screws, Titanium Implanted:Qty: 2 on 04/21/2015 by Kb Garcia DPM at [facility] Left: Foot ARTHREX AR-8933V-1 6 / / 3.0 Jeni Screws, Titanium Implanted:Qty: 1 on 04/21/2015 by Kb Garcia DPM at [facility] Left: Foot ARTHREX AR-8933V-1 8 / / Graft Bone Stimulan Matrix Kit Rapid Cure 5ml 620-005 - [id number] Implanted:Qty: 1 on 02/07/2024 by Devaughn Grimes MD at [facility] Right: Hip BI[employer]OM[employer] 09/30/2026 620-005 / / [id number] Explanted Type Area Grading Clerk Device Identifier Shelf Expiration Date Model / Serial / Lot Imp Scr Arthrex Quickfix Canc Pt 3.0x30mm Ti [id number] Explanted:Qty: 1 on 04/21/2015 by Kb Garcia DPM at [facility] Left: Foot ARTHREX AR-8730-30 P T / / Hip Components Explanted:Qty: 13 on 02/07/2024 by Devaughn Grimes MD at 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) CREATININE Routine 06/17/2024 12:40 PM VOCATIONAL EVALUATOR 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) ERYTHROCYTE SEDIMENTATION RATE AUTO Routine 06/17/2024 12:40 PM VOCATIONAL EVALUATOR 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) CRP INFLAMMATION Routine 06/17/2024 12:4 0 PM VOCATIONAL EVALUATOR 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) BASIC METABOLIC PANEL Routine 02/13/2024 6:33 AM CDT LIPID REFLEX TO DIRECT LDL PANEL Routine 12/19/2022 10:11 AM CDT Encounter for Medicare annual wellness exam from Last 3 Months or Most Recently Relevant to Health Maintenance Results * (ABNORMAL) CBC with platelets and differential (06/17/2024 12:40 PM VOCATIONAL EVALUATOR) WBC Count 6.5 4.0 - 11.0 10e3/uL 06/17/2024 12:49 PM VOCATIONAL EVALUATOR [facility] RBC Count 4.75 4.40 - 5.90 10e6/uL 06/17/2024 12:49 PM VOCATIONAL EVALUATOR [facility] Hemoglobin 13.6 13.3 - 17.7 g/dL 06/17/2024 12:49 PM VOCATIONAL EVALUATOR [facility] Hematocrit 40.7 40.0 - 53.0 % 06/17/2024 12:49 PM VOCATIONAL EVALUATOR [facility] MCV 86 78 - 100 fL 06/17/2024 12:49 PM VOCATIONAL EVALUATOR [facility] MCH 28.6 26.5 - 33.0 pg 06/17/2024 12:49 PM VOCATIONAL EVALUATOR [facility] MCHC 33.4 31.5 - 36.5 g/dL 06/17/2024 12:49 PM VOCATIONAL EVALUATOR [facility] RDW 17.0(H) 10.0 - 15.0 % 06/17/2024 12:49 PM VOCATIONAL EVALUATOR [facility] Platelet Count 169 150 - 450 10e3/uL 06/17/2024 12:49 PM VOCATIONAL EVALUATOR [facility] % Neutrophils 71 % 06/17/2024 12:49 PM VOCATIONAL EVALUATOR [facility] % Lymphocytes 19 % 06/17/2024 12:49 PM VOCATIONAL EVALUATOR [facility] % Monocytes 8 % 06/17/2024 12:49 PM VOCATIONAL EVALUATOR [facility] % Eosinophils 3 % 06/17/2024 12:49 PM VOCATIONAL EVALUATOR [facility] % Basophils 1 % 06/17/2024 12:49 PM VOCATIONAL EVALUATOR [facility] % Immature Granulocytes 0 % 06/17/2024 12:49 PM VOCATIONAL EVALUATOR [facility] NRBCs per 100 WBC 0 <1 /100 024 12:49 PM VOCATIONAL EVALUATOR [facility] Absolute Neutrophils 4.6 1.6 - 8.3 10e3/uL 06/17/2024 12:49 PM VOCATIONAL EVALUATOR [facility] Absolute Lymphocytes 1.2 0.8 - 5.3 10e3/uL 06/17/2024 12:49 PM VOCATIONAL EVALUATOR [facility] Absolute Monocytes 0.5 0.0 - 1.3 10e3/uL 06/17/2024 12:49 PM VOCATIONAL EVALUATOR [facility] Absolute Eosinophils 0.2 0.0 - 0.7 10e3/uL 06/17/2024 12:49 PM VOCATIONAL EVALUATOR [facility] Absolute Basophils 0.0 0.0 - 0.2 10e3/uL 06/17/2024 12:49 PM VOCATIONAL EVALUATOR [facility] Absolute Immature Granulocytes 0.0 <=0.4 10e3/uL 06/17/2024 12:49 PM VOCATIONAL EVALUATOR [facility] Absolute NRBCs 0.0 10e3/uL 06/17/2024 12:49 PM VOCATIONAL EVALUATOR [facility] Blood STRUCTURE OF RIGHT UPPER LIMB / Unknown Venipuncture / Unknown 06/17/2024 12:40 PM VOCATIONAL EVALUATOR 06/17/2024 12:41 PM VOCATIONAL EVALUATOR Jose Carlos Chaves MD LAB - BLOOD ORDERABLES Final Re sult Performing Organization Address [facility]/ZIP Co de Phone Number [facility] [address] Lab (1st floor, no room number) [place] [address] * Erythrocyte sedimentation rate auto (06/17/2024 12:40 PM VOCATIONAL EVALUATOR) Erythrocyte Sedimentation Rate 7 0 - 20 mm/hr 06/17/2024 3:26 PM VOCATIONAL EVALUATOR LABORATORY Blood STRUCTURE OF RIGHT UPPER LIMB / Unknown Venipuncture / Unknown 06/17/2024 12:40 PM VOCATIONAL EVALUATOR 06/17/2024 12:41 PM VOCATIONAL EVALUATOR Jose Carlos Chaves MD LAB - BLOOD ORDERABLES Final Re sult Performing Organization Address [facility] Co de Phone Number [facility] [address] Lab (1st floor, no room number) [place] [address] * CRP inflammation (06/17/2024 12:40 PM VOCATIONAL EVALUATOR) Pathologist [facility] CRP Inflammation <3.00 <5.00 mg/L 06/17/20 24 1:03 PM VOCATIONAL EVALUATOR LABORATORY Blood STRUCTURE OF RIGHT UPPER LIMB / Unknown Venipuncture / Unknown 06/17/2024 12:40 PM VOCATIONAL EVALUATOR 06/17/2024 12:41 PM VOCATIONAL EVALUATOR Jose Carlos Chaves MD LAB - BLOOD ORDERABLES Final Re sult Performing Organization Address City/[facility]/ZIP Co de Phone Number [facility] [address] Lab (1st floor, no room number) [place] [address] * Creatinine (06/17/2024 12:40 PM VOCATIONAL EVALUATOR) Creatinine 0.87 0.67 - 1.17 mg/dL 06/17/2024 1:03 PM VOCATIONAL EVALUATOR LABORATORY GFR Estimate 87 >60 mL/min/1.7 3m2 06/17/2024 1:03 PM VOCATIONAL EVALUATOR LABORATORY Comment:eGFR calculated us2020 CKD-EPI equation. Blood STRUCTURE OF RIGHT UPPER LIMB / Unknown Venipuncture / Unknown 06/17/2024 12:40 PM VOCATIONAL EVALUATOR 06/17/2024 12:41 PM VOCATIONAL EVALUATOR Jose Carlos Chaves MD LAB - BLOOD ORDERABLES Final Re sult Performing Organization Address City/[facility]/ZIP Co de Phone Number [facility] [address] Lab (1st floor, no room number) [place] [phone] * AST (06/17/2024 12:40 PM VOCATIONAL EVALUATOR) AST 30 0 - 45 U/L 06/17/2024 1:0 3 PM VOCATIONAL EVALUATOR LABORATORY Blood STRUCTURE OF RIGHT UPPER LIMB / Unknown Venipuncture / Unknown 06/17/2024 12:40 PM VOCATIONAL EVALUATOR 06/17/2024 12:41 PM VOCATIONAL EVALUATOR Jose Carlos Chaves MD LAB - BLOOD ORDERABLES Final Re sult Performing Organization Address [facility] Co de Phone Number [facility] [address] Lab (1st floor, no room number) [place] [phone] * (ABNORMAL) Basic metabolic panel (02/13/2024 6:33 AM CDT) Sodium 136 135 - 145 mmol/L 02/13/2024 7:03 AM CDT LABORATORY Potassium 4.2 3.4 - 5.3 mmol/L 02/13/2024 7:03 AM CDT LABORATORY Chloride 99 98 - 107 mmol/L 02/13/2024 7:03 AM CDT LABORATORY Carbon Dioxide (CO2) 25 22 - 29 mmol/L 02/13/2024 7:03 AM CDT LABORATORY Anion Gap 12 7 - 15 mmol/L 02/13/2024 7:03 AM CDT LABORATORY Urea Nitrogen 13.6 8.0 - 23.0 mg/dL 02/13/2024 7:03 AM CDT LABORATORY Creatinine 0.70 0.67 - 1.17 mg/dL 02/13/2024 7:03 AM CDT LABORATORY GFR Estimate >90 >60 mL/min/1.7 3m2 02/13/2024 7:03 AM CDT LABORATORY Comment:eGFR calculated usin 2020 CKD-EPI equation. Calcium 8.2(L) 8.8 - 10.4 mg/dL 02/13/2024 7:03 AM CDT LABORATORY Comment:Reference intervals for this test were updated on 01/16/2024 to reflect our healthy population more accurately. There may be differences in the flagging of prior results with similar values performed with this method. Those prior results can be interpreted in the context of the updated reference intervals. Glucose 89 70 - 99 mg/dL 02/13/2024 7:03 AM CDT LABORATORY Blood VENOUS LINE / Unknown VAD(CVC, PICC) / Unknown 02/13/2024 6:33 AM CDT 02/13/2024 6:42 AM CDT us Pablito Goode MD LAB - BLOOD ORDERABLES Fin al Result LABORATORY [facility] [address] [facility] Lab (1st floor, no room number) [place] [address], [facility] * Lipid panel reflex to direct LDL Fasting (12/19/2022 10:11 AM CDT) Cholesterol 113 <200 mg/dL 12/19/2022 1:19 PM T [facility] Triglycerides 54 <150 mg/dL 12/19/2022 1:19 PM T [facility] Direct Measure HDL 60 >=40 mg/dL 2022 1:19 PM T [facility] LDL Cholesterol Calculated 42 <=100 mg/dL 12/19/2022 1:19 PM T [facility] Non HDL Cholesterol 53 <130 mg/dL 12/19/2022 1:19 PM T [facility] Blood STRUCTURE OF RIGHT UPPER LIMB / Unknown Venipuncture / Unknown 12/19/2022 10:11 AM CDT 12/19/2022 10:11 AM CDT Narrative [facility] - 12/19/2022 1:19 PM CDT Cholesterol Desirable: <200 mg/dL Triglycerides Normal: Less than 150 mg/dL Borderline High: 150-199 mg/dL High: 200-499 mg/dL Very High: Greater than or equal to 500 mg/dL Direct Measure HDL Female: Greater than or equal to 50 mg/dL Male: Greater than or equal to 40 mg/dL LDL Cholesterol Desirable: <100mg/dL Above Desirable: 100-129 mg/dL Borderline High: 130-159 mg/dL High: 160-189 mg/dL Very High: >= 190 mg/dL Non HDL Cholesterol Desirable: 130 mg/dL Above Desirable: 130-159 mg/dL Borderline High: 160-189 mg/dL High: 190-219 mg/dL Very High: Greater than or equal to 220 mg/dL Kathleen Strauss APRN MEDIA AID LAB - BLOOD ORDERABLES Final Result [facility] [address] [address] [place] [address], [facility] [phone] from Last 3 Months or Most Recently Relevant to Health Maintenance Additional Health Concerns Active Problems Noted Date Diagnosed Date 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 [facility] MEDICARE [employer] MED[facility]ARE [facility] MEDICARE Advance Directives For more information, please contact: [phone] * No CPR- Pre-arrest intubation OK (Latest Code Status on File) Date Activated Date Inactivated Comments 02/07/2024 4:22 PM 02/13/2024 2:25 PM No attempts t o restore cardiac function following arrest. Intubation to prevent or reverse respiratory instability may be performed. Question Answer Comments Code status determined by: Discussion with patie nt/ legal decision maker * No CPR- Pre-arrest intubation OK Date Activated Date Inactivated Comments 02/07/2024 3:56 PM 02/07/2024 4:22 PM No attempts to restore cardiac function following arrest. Intubation to prevent or reverse respiratory instability may be performed. Question Answer Comments Code status determined by: Discussion with patie nt/ legal decision maker * Full Code Date Activated Date Inactivated Comments 02/07/2024 3:51 PM 02/07/2024 3:56 PM All basic and advanced life-sustaining interventions are performed as appropriate Question Answer Comments Code status determined by: Discussion with patie nt/ legal decision maker Care Teams Loom Stop Checker Relationship Specialty Start Date End Date Kathleen Strauss APRN [facility] [id number] [place] [id number] PCP - General Nurse Practitioner - Family 02/19/18 Kathleen Strauss APRN [employer] [facility] [address] [place] [address] Assigned PCP 03/04/18 Donna Olivera PA-C [address] [place] [address] Physician Freight Loader Dermatology 01/15/21 Eduar Brandon MD [address] [place] [address] Cardiovascular Disease 05/02/22 Yobani Amin MD [address] [place] [address] Neurology 08/29/22 Yobani Amin MD [address] [place] [address] Assigned Neuroscience Provider 09/10/22 Rob Miller MD [address] [place] [address] Dermatology 12/19/22
--- OUTSIDE RECORDS SUMMARY | 2024-07-04 09:38 | XMS_ITS | Clinical Summary ---
Author Organization [place] Address [address] [facility] [place] [address] Care Team Providers Care Health Promotion Educator Name Role Phone Kathleen Strauss APRN TOURIST CABIN KEEPER Primary Care Provider Kathleen Strauss APRN TOURIST CABIN KEEPER Unavailable [phone] Donna Olivera PA-C Unavailable Eduar Brandon MD Unavailable Un available Yobani Amin MD Unavailable [phone] Yobani Amin MD Unavailable Rob Miller MD Unavailable [phone] Allergies Active Allergy Reactions Criticality Noted Date Comments Enoxaparin Rash Low 03/04/2015 No Clinical Screening - See Comments Low 12/21/2012 seasonal allergies - Stuffy head, itchy eyes Penicillins Rash Low 03/04/2015 Per pt Sulfa Antibiotics Rash Low 03/04/2015 Medications Augusta-3 Fatty Acids (OMEGA-3 FISH OIL PO) Take [...] MG sublingual tabletIndications :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 For chest pain [...] for itching or other Active nystatin (MYCOSTATIN) 037278 UNIT/GM external cream Apply topically 2 times daily as needed for dry skin Active nystatin (MYCOSTATIN) 407150 UNIT/GM external powder Apply topically 2 times daily as needed Active triamcinolone (KENALOG) 0.1 % external cream Apply topically 2 times daily as needed for irritation Active metoprolol tartrate 37.5 MG TABSIndications:P ersistent atrial fibrillation (H),Benign essential hypertension,Demond nary artery disease involving houlton coronary artery of houlton heart without angina pectoris,Hyperlip idemia LDL goal <70 Take 37.5 mg by mouth at bedtime 4 Active metoprolol tartrate (LOPRESSOR) 25 MG tabletIndications :Persistent atrial fibrillation (H),Benign essential hypertension,Demond nary artery disease involving houlton coronary artery of houlton heart without angina pectoris,Hyperlip idemia LDL goal [...] 12/31 Anemia with low platelet count 01/12/2021 DC (myocardial infarction) 02/02/2020 HTN (hypertension) 02/02/2020 Venous (peripheral) insufficiency 06/05/2019 Hearing difficulty of both ears 07/04/2018 Aortic dilatation 07/04/2018 Cellulitis of right lower extremity 04/07/2017 SHAYY (generalized anxiety disorder) 01/18/2016 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 Jose Hidalgo has no plan or code status on file. Discussed available resources and provided with information. 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) (Primary Dx) from Last 3 Months Immunizations Name Administration Dates Next Due COVID-19 [...] d (SHINGRIX) 06/11/2018,04/04/2018 Zoster vaccine, live 04/17/2012 Family History Medical History Relation Comments Hypertension Brother 4 Other Cancer Brother 4 Skin Cancer Anxiety Disorder Brother 5 Depression Brother 5 Mental Illness Brother 5 Depression Father Diabetes Father Mental Illness Father Anesthesia Reaction No family hx of Coronary Artery Disease No family hx of Hyperlipidemia No family hx of Hypertension No family hx of Prostate Cancer No family hx of Relation Status Comments Brother 1 Brother 2 Alive Brother 3 Alive Brother 4 Brother 5 Father Maternal Grandfather Maternal Grandmother Mother Paternal Grandfather Paternal Grandmother Sister Alive Son Alive Social History Tobacco Use Types Packs/Day Years [...] Sex Assigned at Male 05/22/2019 3:55 PM YARDAGE CONTROL OPERATOR Legal Sex Male 4:06 AM YARDAGE CONTROL OPERATOR Gender Identity Male 05/22/2019 3:55 PM YARDAGE CONTROL OPERATOR Sexual Orientation Straight 01/07/2021 7: 03 AM [...] Description 12/16/2024 10:10 AM CDT Office Visit [facility] [address] [id number] [place] [address] [place] [id number] Health Maintenance Due Date Last Done Comments RSV VACCINE (1 - 1-dose 75+ series) 2017 PHQ-9 06/20/2023 12/19/2022, 1212/2021, 06/28/2022, Additional history exists ANNUAL REVIEW OF HM ORDERS 12/20/2023 12/19/2022, FALL RISK ASSESSMENT 12/20/2023 12/19/2022, 09/30/2021, 02/10/2020, Additional history exists LIPID 12/20/2023 12/19/2022, 09/02, 02/10/2020, Additional history exists COVID-19 Vaccine ( season) 2024 03/29/2024, 10/26/2023, 05/05/2023, Additional history exists MEDICARE ANNUAL WELLNESS VISIT 01/09/2025 01/10/2024, 12/19/2022, 09/30/2021, Additional history exists BMP 02/12/2025 02/13/2024, 01/31, 02/11/2024, Additional history exists ADVANCE CARE PLANNING 12/20/2027 12/19/2022 , 09/30/2021, 03/20/2017, Additional history exists DTAP/TDAP/TD IMMUNIZATION (4 - Td or Tdap) 02/05/2034 02/06/2024, 05/21/2013, 01/22/1992 DEPRESSION ACTION PLAN Completed 8, 05/08/2018, 03/20/2017, Additional history exists ZOSTER IMMUNIZATION Completed 06/11/2018, 04/04/2018, 04/17/2012 Pneumococcal Vaccine: 50+ Years Completed 11/03/2021, 04/04/2018, 03/20/2017, Additional history exists INFLUENZA VACCINE Completed 03/29/2024, , 04/16/2022, Additional history exists HPV IMMUNIZATION Aged Out No longer e ligible based on patient's age to complete this topic MENINGITIS IMMUNIZATION Aged Out No l onger eligible based on patient's age to complete this topic RSV MONOCLONAL ANTIBODY Aged Out No l onger eligible based on patient's age to complete this topic Goals Goal Patient Goal Type Associated Problems Recent Progress Patient-Stated? Author Total Joint Replacement Hip Pathway Care Plan Total Joint Replacement Hip Pathway No Ivonne [employer] Implanted Type Area Junior Software Engineer Device Identifier Shelf Expiration Date Model / Serial / Lot Imp Green Arthrex Bio-Swivelock 4.75x19.1mm [id number] Implanted:Qty: 1 on 11/29/2017 by Kevin Acevedo MD at [facility] Metallic Hardware/A nchor Right: Shoulder ARTHREX 08/31/2019 AR-2324BCC / / [id number] Imp Green Arthrex Bio-Swivlk W/F Tape 4.75mm [id number] Implanted:Qty: 1 on 08/23/2018 by Kevin Acevedo MD at [facility] Metallic Hardware/A nchor Right: Shoulder ARTHREX 07/02/2020 AR-2600SBS- 4 / / [id number] Imp Scr Zim 6.5x20mm Acet Cup Self Tap 07-1602-466-20 - [id number] Implanted:Qty: 1 on 02/07/2024 by Devaughn Grimes MD at [facility] Metallic Hardware/A nchor Right: Hip [employer] 08/04/2033065 / / [id number] Imp Scr Zim 6.5x15mm Acet Cup Self Tap 60-5519-534-15 - [id number] Implanted:Qty: 1 on 02/07/2024 by Devaughn Grimes MD at [facility] Metallic Hardware/A nchor Right: Hip [employer] 09/23/2032065 - / / [id number] Imp Scr Zim 6.5x15mm Acet Cup Self Tap 54-1820-189-15 - [id number] Implanted:Qty: 1 on 02/07/2024 by Devaughn Grimes MD at [facility] Metallic Hardware/A nchor Right: Hip [employer] 05/30/2033065 - / / [id number] Imp Scr Zim 6.5x20mm Acet Cup Self Tap 41-7837-846-20 - [id number] Implanted:Qty: 1 on 02/07/2024 by Devaughn Grimes MD at [facility] Metallic Hardware/A nchor Right: Hip [employer] 09/05/2032-065 -20 / / [id number] Imp Scr Syn Canc 6.4a711yl Ft Ss 218.035 - [id number] Implanted:Qty: 1 on 02/07/2024 by Devaughn Grimes MD at [facility] Metallic Hardware/A nchor Right: Hip SYNTHES-STRATEC 218.035 / / [id number] OCT 2023 Imp Scr Syn Canc 6.1b032hx Ft Ss 218.040 - [id number] Implanted:Qty: 1 on 02/07/2024 by Devaughn Grimes MD at [facility] Metallic Hardware/A nchor Right: Hip SYNTHES-STRATEC 218.040 / / [id number] OCT 2023 Imp Scr Zim 6.5x20mm Acet Cup Self Tap 60-6336-973-20 - [id number] Implanted:Qty: 1 on 02/07/2024 by Devaughn Grimes MD at [facility] Metallic Hardware/A nchor Right: Hip [employer] 01/30/2033-6250-065 -20 / / [id number] 64mm Acetabular Shell Multi Hole Implanted:Qty: 1 on 02/07/2024 by Devaughn Grimes MD at [facility] Total Joint Component/ Insert Right: Hip BIOMET 10/03/2033 [id number] / / [id number] Highly Crosslinked Polyethylene Liner, Neutral, 40mm I.D., Size H Implanted:Qty: 1 on 02/07/2024 by Devaughn Grimes MD at [facility] Total Joint Component/ Insert Right: Hip STEVEN 08/04/[id number] / / [id number] Biomet Femoral Head Type 1 Taper, 40mm, +9 Implanted:Qty: 1 on 02/07/2024 by Devaughn Grimes MD at [facility] Total Joint Component/ Insert Right: Hip BIOMET 09/19/2028 [id number] / / [id number] Wire Daniela 0.062x4 Implanted:Qty: 2 on 04/21/2015 by Kb Garcia DPM at [facility] Left: Foot [employer]- 1646-10-000 / / Imp Scr Arthrex Tenodesis Biocomp 3x8mm [id number] Implanted:Qty: 1 on 04/21/2015 by Kb Garcia DPM at [facility] Left: Foot ARTHREX 07/02/2016 AR-1530BC / / [id number] Pip Dart, 10 Bend, 2.5x30mm Implanted:Qty: 2 on 04/21/2015 by Kb Garcia DPM at [facility] Left: Foot ARTHREX 10/31/2019 AR-4154P-3 0 10 / / [id number] Imp Scr Arthrex Quickfix Canc Pt 3.0x24mm Ti [id number] Implanted:Qty: 1 on 04/21/2015 by Kb Garcia DPM at [facility] Left: Foot ARTHREX AR-8730-24 P T / / Imp Scr Arthrex Quickfix Lt Blue 3x15mm Ar-8931-15 Implanted:Qty: 1 on 04/21/2015 by Kb Garcia DPM at [facility] Left: Foot ARTHREX AR-8931-15 / / Imp Scr Arthrex Quickfix Aqua 3x17mm Ar-8931-17 Implanted:Qty: 1 on 04/21/2015 by Kb Garcia DPM at [facility] Left: Foot ARTHREX AR-8931-17 / / Imp Plate Arthrex Low Pro Mtp Cntrd Short Lt Ti Ar-8944cl-S Implanted:Qty: 1 on 04/21/2015 by Kb Garcia DPM at [facility] Left: Foot ARTHREX AR-8944CL- S / / Imp Scr Arthrex Mtp Lp Cortical 3x16mm Ti Ar-8933-16 Implanted:Qty: 1 on 04/21/2015 by Kb Garcia DPM at [facility] Left: Foot ARTHREX AR-8933-16 / / 3.0 Jeni Screws, Titanium Implanted:Qty: 2 on 04/21/2015 by Kb Garcia DPM at [facility] Left: Foot ARTHREX AR-8933V-1 6 / / 3.0 Jeni Screws, Titanium Implanted:Qty: 1 on 04/21/2015 by Kb Garcia DPM at [facility] Left: Foot ARTHREX AR-8933V-1 8 / / Graft Bone Stimulan Matrix Kit Rapid Cure 5ml 620-005 - [id number] Implanted:Qty: 1 on 02/07/2024 by Devaughn Grimes MD at [facility] Right: Hip BI[employer]OM[employer]ITES 09/30/2026 620-005 / / [id number] Explanted Type Area Junior Software Engineer Device Identifier Shelf Expiration Date Model / Serial / Lot Imp Scr Arthrex Quickfix Canc Pt 3.0x30mm Ti [id number] Explanted:Qty: 1 on 04/21/2015 by Kb Garcia DPM at [facility] Left: Foot ARTHREX AR-8730-30 P T / / Hip Components Explanted:Qty: 13 on 02/07/2024 by Devaughn Grimes MD at [facility] Right: Hip Procedures Procedure Name Priority Date/Time Associated Diagnosis Comments CBC WITH PLATELETS & DIFFERENTIAL Routine 06/17/2024 12:40 PM YARDAGE CONTROL OPERATOR 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) CBC WITH PLATELETS AND DIFFERENTIAL Routine 06/17/2024 12:40 PM YARDAGE CONTROL OPERATOR 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) AST Routine 06/17/2024 12:40 PM YARDAGE CONTROL OPERATOR 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) CREATININE Routine 06/17/2024 12:40 PM YARDAGE CONTROL OPERATOR 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) ERYTHROCYTE SEDIMENTATION RATE AUTO Routine 06/17/2024 12:40 PM YARDAGE CONTROL OPERATOR 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) CRP INFLAMMATION Routine 06/17/2024 12:4 0 PM YARDAGE CONTROL OPERATOR 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) BASIC METABOLIC PANEL Routine 02/13/2024 6:33 AM CDT LIPID REFLEX TO DIRECT LDL PANEL Routine 12/19/2022 10:11 AM CDT Encounter for Medicare annual wellness exam from Last 3 Months or Most Recently Relevant to Health Maintenance Results * (ABNORMAL) CBC with platelets and differential (06/17/2024 12:40 PM YARDAGE CONTROL OPERATOR) WBC Count 6.5 4.0 - 11.0 10e3/uL 06/17/2024 12:49 PM YARDAGE CONTROL OPERATOR [facility] RBC Count 4.75 4.40 - 5.90 10e6/uL 06/17/2024 12:49 PM YARDAGE CONTROL OPERATOR [facility] Hemoglobin 13.6 13.3 - 17.7 g/dL 06/17/2024 12:49 PM YARDAGE CONTROL OPERATOR [facility] Hematocrit 40.7 40.0 - 53.0 % 06/17/2024 12:49 PM YARDAGE CONTROL OPERATOR [facility] MCV 86 78 - 100 fL 06/17/2024 12:49 PM YARDAGE CONTROL OPERATOR [facility] MCH 28.6 26.5 - 33.0 pg 06/17/2024 12:49 PM YARDAGE CONTROL OPERATOR [facility] MCHC 33.4 31.5 - 36.5 g/dL 06/17/2024 12:49 PM YARDAGE CONTROL OPERATOR [facility] RDW 17.0(H) 10.0 - 15.0 % 06/17/2024 12:49 PM YARDAGE CONTROL OPERATOR [facility] Platelet Count 169 150 - 450 10e3/uL 06/17/2024 12:49 PM YARDAGE CONTROL OPERATOR [facility] % Neutrophils 71 % 06/17/2024 12:49 PM YARDAGE CONTROL OPERATOR [facility] % Lymphocytes 19 % 06/17/2024 12:49 PM YARDAGE CONTROL OPERATOR [facility] % Monocytes 8 % 06/17/2024 12:49 PM YARDAGE CONTROL OPERATOR [facility] % Eosinophils 3 % 06/17/2024 12:49 PM YARDAGE CONTROL OPERATOR [facility] % Basophils 1 % 06/17/2024 12:49 PM YARDAGE CONTROL OPERATOR [facility] % Immature Granulocytes 0 % 06/17/2024 12:49 PM YARDAGE CONTROL OPERATOR [facility] NRBCs per 100 WBC 0 <1 /100 024 12:49 PM YARDAGE CONTROL OPERATOR [facility] Absolute Neutrophils 4.6 1.6 - 8.3 10e3/uL 06/17/2024 12:49 PM YARDAGE CONTROL OPERATOR [facility] Absolute Lymphocytes 1.2 0.8 - 5.3 10e3/uL 06/17/2024 12:49 PM YARDAGE CONTROL OPERATOR [facility] Absolute Monocytes 0.5 0.0 - 1.3 10e3/uL 06/17/2024 12:49 PM YARDAGE CONTROL OPERATOR [facility] Absolute Eosinophils 0.2 0.0 - 0.7 10e3/uL 06/17/2024 12:49 PM YARDAGE CONTROL OPERATOR [facility] Absolute Basophils 0.0 0.0 - 0.2 10e3/uL 06/17/2024 12:49 PM YARDAGE CONTROL OPERATOR [facility] Absolute Immature Granulocytes 0.0 <=0.4 10e3/uL 06/17/2024 12:49 PM YARDAGE CONTROL OPERATOR [facility] Absolute NRBCs 0.0 10e3/uL 06/17/2024 12:49 PM YARDAGE CONTROL OPERATOR [facility] Blood STRUCTURE OF RIGHT UPPER LIMB / Unknown Venipuncture / Unknown 06/17/2024 12:40 PM YARDAGE CONTROL OPERATOR 06/17/2024 12:41 PM YARDAGE CONTROL OPERATOR Jose Carlos Chaves MD LAB - BLOOD ORDERABLES Final Re sult [facility] [address] Lab (1st floor, no room number) [address] * Erythrocyte sedimentation rate auto (06/17/2024 12:40 PM YARDAGE CONTROL OPERATOR) Erythrocyte Sedimentation Rate 7 0 - 20 mm/hr 06/17/2024 3:26 PM YARDAGE CONTROL OPERATOR [facility] Blood STRUCTURE OF RIGHT UPPER LIMB / Unknown Venipuncture / Unknown 06/17/2024 12:40 PM YARDAGE CONTROL OPERATOR 06/17/2024 12:41 PM YARDAGE CONTROL OPERATOR Jose Carlos Chaves MD LAB - BLOOD ORDERABLES Final Re sult [facility] [address] Lab (1st floor, no room number) [address] * CRP inflammation (06/17/2024 12:40 PM YARDAGE CONTROL OPERATOR) CRP Inflammation <3.00 <5.00 mg/L 06/17/20 24 1:03 PM YARDAGE CONTROL OPERATOR [facility] Blood STRUCTURE OF RIGHT UPPER LIMB / Unknown Venipuncture / Unknown 06/17/2024 12:40 PM YARDAGE CONTROL OPERATOR 06/17/2024 12:41 PM YARDAGE CONTROL OPERATOR us Jose Carlos Chaves MD LAB - BLOOD ORDERABLES Final Re sult LABORATORY [facility] [address] Lab (1st floor, no room number) [address] * Creatinine (06/17/2024 12:40 PM YARDAGE CONTROL OPERATOR) Creatinine 0.87 0.67 - 1.17 mg/dL 06/17/2024 1:03 PM YARDAGE CONTROL OPERATOR LABORATORY GFR Estimate 87 >60 mL/min/1.7 3m2 06/17/2024 1:03 PM YARDAGE CONTROL OPERATOR LABORATORY Comment:eGFR calculated usin 2020 CKD-EPI equation. Blood STRUCTURE OF RIGHT UPPER LIMB / Unknown Venipuncture / Unknown 06/17/2024 12:40 PM YARDAGE CONTROL OPERATOR 06/17/2024 12:41 PM YARDAGE CONTROL OPERATOR Jose Carlos Chaves MD LAB - BLOOD ORDERABLES Final Re sult Performing Organization Address [facility]/ZIP Co de Phone Number LABORATORY [facility] [address] Lab (1st floor, no room number) [place] [id number] * AST (06/17/2024 12:40 PM YARDAGE CONTROL OPERATOR) AST 30 0 - 45 U/L 06/17/2024 1:0 3 PM YARDAGE CONTROL OPERATOR LABORATORY Blood STRUCTURE OF RIGHT UPPER LIMB / Unknown Venipuncture / Unknown 06/17/2024 12:40 PM YARDAGE CONTROL OPERATOR 06/17/2024 12:41 PM YARDAGE CONTROL OPERATOR Jose Carlos Chaves MD LAB - BLOOD ORDERABLES Final Re sult LABORATORY [facility] [address] Lab (1st floor, no room number) [address] * (ABNORMAL) Basic metabolic panel (02/13/2024 6:33 [...] - BLOOD ORDERABLES Fin al Result LABORATORY [facility] [address] Lab (1st floor, no room number) [place] [address], [facility] * Lipid panel reflex to direct LDL Fasting (12/19/2022 10:11 AM CDT) Pathologist [facility] Cholesterol 113 <200 mg/dL 12/19/2022 1:19 PM CDT [facility] Triglycerides 54 <150 mg/dL 12/19/2022 1:19 PM CDT [facility] Direct Measure HDL 60 >=40 mg/dL 2022 1:19 PM CDT [facility] LDL Cholesterol Calculated 42 <=100 mg/dL 12/19/2022 1:19 PM CDT [facility] Non HDL Cholesterol 53 <130 mg/dL 12/19/2022 1:19 PM [facility] Blood STRUCTURE OF RIGHT UPPER LIMB / Unknown Venipuncture / Unknown 12/19/2022 10:11 AM CDT 12/19/2022 10:11 AM CDT Narrative [facility] - 12/19/2022 1:19 PM CDT Cholesterol [...] equal to 220 mg/dL Kathleen Strauss APRN TOURIST CABIN KEEPER LAB - BLOOD ORDERABLES Final Result [facility] [address] [facility]. [address] [place] [address], [facility] [phone] from Last 3 Months or Most Recently Relevant to Health Maintenance Additional Health Concerns Active Problems Noted Date Diagnosed Date 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 Insurance [address] [place] [address] [facility] MEDICARE [id number] MEDICARE MEDICARE Advance Directives For more information, please contact: [phone] * No CPR- Pre-arrest intubation OK (Latest [...] patie nt/ legal decision maker Care Teams Health Promotion Educator Relationship Specialty Start Date End Date Kathleen Strauss APRN TOURIST CABIN KEEPER [id number] [place] [address] PCP - General Nurse Practitioner - Family 02/19/18 Kathleen Strauss APRN TOURIST CABIN KEEPER [address] [place] [address] Assigned PCP 03/04/18 Donna Olivera PA-C [address] [place] [address] Physician Learning Program Manager Dermatology 01/15/21 Eduar Brandon MD [address] [place] [address] Cardiovascular Disease 05/02/22 Yobani Amin MD [address] [place] [address] Neurology 08/29/22 Yobani Amin MD [address] [place] [address] Assigned Neuroscience Provider 09/10/22 Rob Miller MD [facility] [place] [address] Dermatology 12/19/22
--- OUTSIDE RECORDS SUMMARY | 2024-07-04 09:38 | XMS_ITS | Encounter Summary ---
Author Organization [place] Address [address] [facility] [place] [address] Care Team Providers Care Human Resources Technician Name Role Phone Kathleen Strauss APRN STRUCTURAL WORKER Primary Care Provider Kathleen Strauss APRN STRUCTURAL WORKER Unavailable [phone] Donna Olivera PA-C Unavailable [phone] Eduar Brandon MD Unavailable Un available Yobani Amin MD Unavailable [phone] Yobani Amin MD Unavailable Rob Miller MD Unavailable + [phone] Eduar Brandon MD Unavailable Un available Encounter Details Date Type Department Care Team (Late st Contact Info) Description 06/17/2024 12:35 PM ACUTE CARE NURSING ASSISTANT Lab [facility] [address] [place] [phone] 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) Social History Tobacco Use Types Packs/Day Years [...] Sex Assigned at Male 05/22/2019 3:55 PM ACUTE CARE NURSING ASSISTANT Legal Sex Male 4:06 AM ACUTE CARE NURSING ASSISTANT Gender Identity Male 05/22/2019 3:55 PM ACUTE CARE NURSING ASSISTANT Sexual Orientation Straight 01/07/2021 7: 03 AM CDT documented as of this encounter Plan of Treatment Upcoming Encounters Date Type Department Care Team (Late st Contact Info) Description 12/16/2024 10:10 AM CDT Office Visit [facility] [place] [address] [place] [address] Yobani Amin MD [address] [place] [address] documented as of this encounter Goals Goal Patient Goal Type Associated Problems Recent Progress Patient-Stated? 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) ERYTHROCYTE SEDIMENTATION RATE AUTO Routine 06/17/2024 12:40 PM ACUTE CARE NURSING ASSISTANT 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) CRP INFLAMMATION Routine 06/17/2024 12:4 0 PM ACUTE CARE NURSING ASSISTANT 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) CREATININE Routine 06/17/2024 12:40 PM ACUTE CARE NURSING ASSISTANT 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) AST Routine 06/17/2024 12:40 PM ACUTE CARE NURSING ASSISTANT 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) documented in this encounter Results * (ABNORMAL) CBC with platelets and differential (06/17/2024 12:40 PM ACUTE CARE NURSING ASSISTANT) WBC Count 6.5 4.0 - 11.0 10e3/uL 06/17/2024 12:49 PM ACUTE CARE NURSING ASSISTANT [facility] RBC Count 4.75 4.40 - 5.90 10e6/uL 06/17/2024 12:49 PM ACUTE CARE NURSING ASSISTANT [facility] Hemoglobin 13.6 13.3 - 17.7 g/dL 06/17/2024 12:49 PM ACUTE CARE NURSING ASSISTANT [facility] Hematocrit 40.7 40.0 - 53.0 % 06/17/2024 12:49 PM ACUTE CARE NURSING ASSISTANT [facility] MCV 86 78 - 100 fL 06/17/2024 12:49 PM ACUTE CARE NURSING ASSISTANT [facility] MCH 28.6 26.5 - 33.0 pg 06/17/2024 12:49 PM ACUTE CARE NURSING ASSISTANT [facility] MCHC 33.4 31.5 - 36.5 g/dL 06/17/2024 12:49 PM ACUTE CARE NURSING ASSISTANT [facility] RDW 17.0(H) 10.0 - 15.0 % 06/17/2024 12:49 PM ACUTE CARE NURSING ASSISTANT [facility] Platelet Count 169 150 - 450 10e3/uL 06/17/2024 12:49 PM ACUTE CARE NURSING ASSISTANT [facility] % Neutrophils 71 % 06/17/2024 12:49 PM ACUTE CARE NURSING ASSISTANT [facility] % Lymphocytes 19 % 06/17/2024 12:49 PM ACUTE CARE NURSING ASSISTANT [facility] % Monocytes 8 % 06/17/2024 12:49 PM ACUTE CARE NURSING ASSISTANT [facility] % Eosinophils 3 % 06/17/2024 12:49 PM ACUTE CARE NURSING ASSISTANT [facility] % Basophils 1 % 06/17/2024 12:49 PM ACUTE CARE NURSING ASSISTANT [facility] % Immature Granulocytes 0 % 06/17/2024 12:49 PM ACUTE CARE NURSING ASSISTANT [facility] NRBCs per 100 WBC 0 <1 /100 024 12:49 PM ACUTE CARE NURSING ASSISTANT [facility] Absolute Neutrophils 4.6 1.6 - 8.3 10e3/uL 06/17/2024 12:49 PM ACUTE CARE NURSING ASSISTANT [facility] Absolute Lymphocytes 1.2 0.8 - 5.3 10e3/uL 06/17/2024 12:49 PM ACUTE CARE NURSING ASSISTANT [facility] Absolute Monocytes 0.5 0.0 - 1.3 10e3/uL 06/17/2024 12:49 PM ACUTE CARE NURSING ASSISTANT [facility] Absolute Eosinophils 0.2 0.0 - 0.7 10e3/uL 06/17/2024 12:49 PM ACUTE CARE NURSING ASSISTANT [facility] Absolute Basophils 0.0 0.0 - 0.2 10e3/uL 06/17/2024 12:49 PM ACUTE CARE NURSING ASSISTANT [facility] Absolute Immature Granulocytes 0.0 <=0.4 10e3/uL 06/17/2024 12:49 PM ACUTE CARE NURSING ASSISTANT LABORATORY Absolute NRBCs 0.0 10e3/uL 06/17/2024 12:49 PM ACUTE CARE NURSING ASSISTANT LABORATORY Blood STRUCTURE OF RIGHT UPPER LIMB / Unknown Venipuncture / Unknown 06/17/2024 12:40 PM ACUTE CARE NURSING ASSISTANT 06/17/2024 12:41 PM ACUTE CARE NURSING ASSISTANT us Jose Carlos Chaves MD LAB - BLOOD ORDERABLES Final Re sult [facility] Care Lab [address] Lab (1st floor, no room number) [place] [phone] [place] [address] * AST (06/17/2024 12:40 PM ACUTE CARE NURSING ASSISTANT) AST 30 0 - 45 U/L 06/17/2024 1:0 3 PM ACUTE CARE NURSING ASSISTANT LABORATORY Blood STRUCTURE OF RIGHT UPPER LIMB / Unknown Venipuncture / Unknown 06/17/2024 12:40 PM ACUTE CARE NURSING ASSISTANT 06/17/2024 12:41 PM ACUTE CARE NURSING ASSISTANT Jose Carlos Chaves MD LAB - BLOOD ORDERABLES Final Re sult [facility] Care Lab [address] Lab (1st floor, no room number) [place] [phone] [place] [address] * Creatinine (06/17/2024 12:40 PM ACUTE CARE NURSING ASSISTANT) Creatinine 0.87 0.67 - 1.17 mg/dL 06/17/2024 1:03 PM ACUTE CARE NURSING ASSISTANT LABORATORY GFR Estimate 87 >60 mL/min/1.7 3m2 06/17/2024 1:03 PM ACUTE CARE NURSING ASSISTANT LABORATORY Comment:eGFR calculated usin g 2020 CKD-EPI equation. Blood STRUCTURE OF RIGHT UPPER LIMB / Unknown Venipuncture / Unknown 06/17/2024 12:40 PM ACUTE CARE NURSING ASSISTANT 06/17/2024 12:41 PM ACUTE CARE NURSING ASSISTANT Jose Carlos Chaves MD LAB - BLOOD ORDERABLES Final Re sult [facility] Care Lab [address] Lab (1st floor, no room number) [place] [address] * Erythrocyte sedimentation rate auto (06/17/2024 12:40 PM ACUTE CARE NURSING ASSISTANT) Erythrocyte Sedimentation Rate 7 0 - 20 mm/hr 06/17/2024 3:26 PM ACUTE CARE NURSING ASSISTANT LABORATORY Blood STRUCTURE OF RIGHT UPPER LIMB / Unknown Venipuncture / Unknown 06/17/2024 12:40 PM ACUTE CARE NURSING ASSISTANT 06/17/2024 12:41 PM ACUTE CARE NURSING ASSISTANT Jose Carlos Chaves MD LAB - BLOOD ORDERABLES Final Re sult Performing Organization Address [facility]/ZIP Co de Phone Number [facility] Care Lab [address] Lab (1st floor, no room number) [place] [address] * CRP inflammation (06/17/2024 12:40 PM ACUTE CARE NURSING ASSISTANT) CRP Inflammation <3.00 <5.00 mg/L 06/17/20 24 1:03 PM ACUTE CARE NURSING ASSISTANT LABORATORY Blood STRUCTURE OF RIGHT UPPER LIMB / Unknown Venipuncture / Unknown 06/17/2024 12:40 PM ACUTE CARE NURSING ASSISTANT 06/17/2024 12:41 PM ACUTE CARE NURSING ASSISTANT Jose Carlos Chaves MD LAB - BLOOD ORDERABLES Final Re sult [facility] Care Lab [address] Lab (1st floor, no room number) [place] [address] documented in this encounter Visit Diagnoses Diagnosis 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 documented in this encounter Additional Health Concerns Active Problems Noted Date Diagnosed Date 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 Assessment Noted Time PHQ-9 Depression Total Score: 1 12/20/19 23 8:10 AM CDT documented as of this encounter Care Teams Human Resources Technician Relationship Specialty Start Date End Date Kathleen Strauss APRN STRUCTURAL WORKER [address], [place] [address] PCP - General Nurse Practitioner - Family 02/19/18 Kathleen Strauss APRN STRUCTURAL WORKER [address], [place] [address] Assigned PCP 03/04/18 Donna Olivera PA-C [address] [place] [address] Physician Player Development Manager Dermatology 01/15/21 Eduar Brandon MD [address] [place] [address] Cardiovascular Disease 05/02/22 Yobani Amin MD [address] [place] [address] Neurology 08/29/22 Yobani Amin MD [address] [place] [address] Assigned Neuroscience Provider 09/10/22 Rob Miller MD [address] [place] [address] Dermatology 12/19/22 Eduar Brandon MD Assigned Heart and Vascular Provider 12/10/22 06/23/24 documented as of this encounter
--- OUTSIDE RECORDS SUMMARY | 2024-07-04 09:38 | XMS_ITS ---
Author Organization [place] Address [address] [facility] 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 Persistent atrial fibrillation 06/17/2022 Alcohol abuse with alcohol-induced disorder 12/31 Anemia with low platelet count 01/12/2021 NH (myocardial infarction) 02/02/2020 HTN (hypertension) 02/02/2020 Venous (peripheral) insufficiency 06/05/2019 Hearing difficulty of both ears 07/04/2018 Aortic dilatation 07/04/2018 Cellulitis of right lower extremity 04/07/2017 SHAYY (generalized anxiety disorder) 01/18/2016 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 Provider to review and confirm. Benign essential hypertension 04/20/2015 Malignant neoplasm of prostate 12/25/2012 Current Oncology Plans No current plan information found. Past Plans No past plan information found. Radiation Treatments * No radiation treatments are documented for this patient in [facility]. Treatments may have been administered in another system. Lifetime Dose Tracking * Chemical Lifetime Dose Automatic Entry Manual Entr y Total Air Kerma 2.38 mGy 2.38 mGy 0 mGy Fluoro Time 0.2 Minutes 0.2 Minutes 0 Minutes Resolved Problems Problem Noted Date Diagnosed Date Resolved Date Pressure ulcer of buttock, right, unstageable 01/13/20 21 12/19/2022 Advanced directives, counseling/discussion 03/20/2017 12/18/2023 Overview (03/20/2017): Advance Care Planning 03/20/2017: ACP Review of Chart / Resources Provided: Reviewed chart for advance care plan. Jose Hebert Hidalgo has no plan or code status on file. Discussed available resources and provided with information. Added by Laura Casey
--- OUTSIDE RECORDS SUMMARY | 2024-07-04 09:38 | XMS_ITS | Encounter Summary ---
Author Organization [place] Address [address] [facility] [place] [address] Care Team Providers Care Bunk Assembler Name Role Phone Kathleen Strauss INDUSTRIAL PRODUCTION MANAGER INTERNET SOURCER Primary Care Provider Kathleen Strauss APRN INTERNET SOURCER Unavailable [phone] Joel Deleon MD Unavailable [phone] Rob Miller MD Unavailable [phone] Jazmín Balbuena APRN INTERNET SOURCER Unavailable [phone] Donna Olivera PA-C Unavailable [phone] Héctor Good PhD Unavailable [phone] Eduar Brandon MD Unavailable Un available Eduar Brandon MD Unavailable Un available Jelena Resendiz APRN INTERNET SOURCER Unavailable Yobani Amin MD Unavailable [phone] Yobani Amin MD Unavailable [phone] Rob Miller MD Unavailable [phone] Eduar Brandon MD Unavailable Un available Encounter Details Date Type Department Care Team (Late st Contact Info) Description 05/27/2020 MyC Medical [facility] [address] [place] [phone] Kathleen Strauss APRN INTERNET SOURCER [address] [place] [address] Social History Tobacco Use Types Packs/Day Years Used Date Smoking Tobacco: Former Cigarettes Q uit: 12/31/1978 Smokeless Tobacco: Never Alcohol Use Standard Drinks/Week Comments Yes 0 (1 standard drink = 0.6 oz pur e alcohol) oCCASIONAL PHQ-2 Answer Date Recorded PHQ-2 Score 0 04/26/2019 Sex and Gender Information Value Date Recorded Sex Assigned at Male 05/22/2019 3:55 PM PRINTING SIGN MACHINE OPERATOR Legal Sex Male 4:06 AM PRINTING SIGN MACHINE OPERATOR Gender Identity Male 05/22/2019 3:55 PM PRINTING SIGN MACHINE OPERATOR Sexual Orientation Straight 01/07/2021 7: 03 AM CDT COVID-19 Exposure Response Date Recorded In the last month, have you been in contact with someone who was confirmed or suspected to have Coronavirus / COVID-19? No / Unsure 05/21/2020 11:21 AM PRINTING SIGN MACHINE OPERATOR documented as of this encounter Plan of Treatment Upcoming Encounters Date Type Department Care Team (Late st Contact Info) Description 12/16/2024 10:10 AM CDT Office Visit [facility] Neurology [address] [phone] Yobani Amin MD [address] [place] [address] documented as of this encounter Visit Diagnoses Not on filedocumented in this encounter Additional Health Concerns Infection Onset Date Last Indicated Resolved Time Rule Out COVID-19 06/08/2021 06/08/2021 06/09/2021 6:57 PM PRINTING SIGN MACHINE OPERATOR Rule Out COVID-19 04/29/2022 04/29/2022 04/29/2022 11:54 PM CDT Assessment Noted Time PHQ-9 Depression Total Score: 0 05/21/20 8:53 AM PRINTING SIGN MACHINE OPERATOR documented as of this encounter Care Teams Bunk Assembler Relationship Specialty Start Date End Date Kathleen Strauss APRN INTERNET SOURCER [address] [place] [address] PCP - General Nurse Practitioner - Family 02/19/18 Kathleen Strauss APRN INTERNET SOURCER [address] [place] [address] Assigned PCP 03/04/18 Joel Deleon MD [address] [place] [address] Assigned Heart and Vascular Provider 04/24/20 11/14/20 Rob Miller MD [address] [place] [address] Assigned Surgical Provider 04/24/20 06/05/21 Jazmín Balbuena APRN INTERNET SOURCER [address] [place] [address] Assigned Heart and Vascular Provider 12/13/20 03/20/21 Donna Olivera PA-C [address] [place] [address] Physician Lining Cleaner Dermatology 01/15/21 Héctor Good, PhD [address] [place] [address] Assigned Behavioral Health Provider 05/23/21 03/18/22 Eduar Brandon MD [address] [place] [address] Cardiovascular Disease 05/02/22 Eduar Brandon MD Assigned Heart and Vascular Provider 05/21/22 06/24/22 Jelena Resendiz APRN INTERNET SOURCER [address] [place] [address] Assigned Heart and Vascular Provider 06/25/22 12/09/22 Yobani Amin MD [address] [place], [place] [id number] Neurology 08/29/22 Yobani Amin MD [address] [place] [address] Assigned Neuroscience Provider 09/10/22 Rob Miller MD [address] [place] [address] Dermatology 12/19/22 Eduar Brandon MD Assigned Heart and Vascular Provider 12/10/22 06/23/24 documented as of this encounter
--- OUTSIDE RECORDS SUMMARY | 2024-07-04 09:38 | XMS_ITS | Encounter Summary ---
Author Organization [place] Address [address] [facility] [place] [address] Care Team Providers Care Retort Pre Cooker Name Role Phone Kathleen Strauss APRN MULTIMEDIA AUTHORING SPECIALIST Primary Care Provider Kathleen Strauss APRN MULTIMEDIA AUTHORING SPECIALIST Unavailable [phone] Donna Olivera PA-C Unavailable Eduar Brandon MD Unavailable Un available Yobani Amin MD Unavailable [phone] Yobani Amin MD Unavailable [phone] Rob Miller MD Unavailable [phone] Eduar Brandon MD Unavailable Un available Encounter Details Date Type Department Care Team (Late st Contact Info) Description 06/06/2024 Orders Only [facility] [address] [place] [address] Jose Carlos Chaves MD [facility] 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) (Primary Dx) Social History Tobacco Use Types [...] Sex Assigned at Male 05/22/2019 3:55 PM KILN TESTER Legal Sex Male 4:06 AM KILN TESTER Gender Identity Male 05/22/2019 3:55 PM KILN TESTER Sexual Orientation Straight 01/07/2021 7: 03 AM CDT documented as of this encounter Plan of Treatment Upcoming Encounters Date Type Department Care Team (Late st Contact Info) Description 12/16/2024 10:10 AM CDT Office Visit [facility] [address] [place] [phone] Yobani Amin MD [address] [place] [address] [address] [place] [address] documented as of this encounter Goals Goal Patient Goal Type Associated Problems Recent Progress Patient-Stated? Author Total Joint Replacement Hip Pathway Care Plan Total Joint Replacement Hip Pathway Ivonne Felton documented as of this encounter Results * AST (06/17/2024 12:40 PM KILN TESTER) AST 30 0 - 45 U/L 06/17/2024 1:0 3 PM KILN TESTER LABORATORY Blood STRUCTURE OF RIGHT UPPER LIMB / Unknown Venipuncture / Unknown 06/17/2024 12:40 PM KILN TESTER 06/17/2024 12:41 PM KILN TESTER us Jose Carlos Chaves MD LAB - BLOOD ORDERABLES Final Re sult LABORATORY [facility] Acute Care Lab [address] Lab (1st floor, no room number) [place] [address], [facility] * Creatinine (06/17/2024 12:40 PM KILN TESTER) Creatinine 0.87 0.67 - 1.17 mg/dL 06/17/2024 1:03 PM KILN TESTER LABORATORY GFR Estimate 87 >60 mL/min/1.7 3m2 06/17/2024 1:03 PM KILN TESTER LABORATORY Comment:eGFR calculated usin g 2020 CKD-EPI equation. Blood STRUCTURE OF RIGHT UPPER LIMB / Unknown Venipuncture / Unknown 06/17/2024 12:40 PM KILN TESTER 06/17/2024 12:41 PM KILN TESTER Jose Carlos Chaves MD LAB - BLOOD ORDERABLES Final Re sult [facility] Lab [address] [employer] Lab (1st floor, no room number) [address] * Erythrocyte sedimentation rate auto (06/17/2024 12:40 PM KILN TESTER) Erythrocyte Sedimentation Rate 7 0 - 20 mm/hr 06/17/2024 3:26 PM KILN TESTER LABORATORY Blood STRUCTURE OF RIGHT UPPER LIMB / Unknown Venipuncture / Unknown 06/17/2024 12:40 PM KILN TESTER 06/17/2024 12:41 PM KILN TESTER Jose Carlos Chaves MD LAB - BLOOD ORDERABLES Final Re sult [facility] Lab [address] Lab (1st floor, no room number) [address] * CRP inflammation (06/17/2024 12:40 PM KILN TESTER) CRP Inflammation <3.00 <5.00 mg/L 06/17/20 1:03 PM KILN TESTER LABORATORY Blood STRUCTURE OF RIGHT UPPER LIMB / Unknown Venipuncture / Unknown 06/17/2024 12:40 PM KILN TESTER 06/17/2024 12:41 PM KILN TESTER us Jose Carlos Chaves MD LAB - BLOOD ORDERABLES Final Re sult [facility] Acute Care Lab [address] [facility] Lab (1st floor, no room number) [place] [address], [facility] documented in this encounter Visit Diagnoses Diagnosis 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)- Primary 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 documented in this encounter Additional Health Concerns Active Problems Noted Date Diagnosed Date 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 Assessment Noted Time PHQ-9 Depression Total Score: 1 12/20/19 8:10 AM CDT documented as of this encounter Care Teams Retort Pre Cooker Relationship Specialty Start Date End Date Kathleen Strauss APRN MULTIMEDIA AUTHORING SPECIALIST [address] [place] [address] PCP - General Nurse Practitioner - Family 02/19/18 Kathleen Strauss APRN MULTIMEDIA AUTHORING SPECIALIST [address] [place] [address] Assigned PCP 03/04/18 Donna Olivera PA-C [address] [place] [address] Physician Pediatrician Active Practice Dermatology 01/15/21 Eduar Brandon MD [address] [place] [address] Cardiovascular Disease 05/02/22 Yobani Amin MD [address] [place] [address] Neurology 08/29/22 Yobani Amin MD [address] [place] [address] Assigned Neuroscience Provider 09/10/22 Rob Miller MD [address] [place] [address] Dermatology 12/19/22 Eduar Brandon MD Assigned Heart and Vascular Provider 12/10/22 06/23/24 documented as of this encounter
--- OUTSIDE RECORDS SUMMARY | 2024-07-04 09:39 | XMS_ITS | Encounter Summary ---
Author Organization [place] Address [address] [facility] [place] [address] Care Team Providers Care Lotus Notes Administrator Name Role Phone Kathleen Strauss COATING MIXER EXPLOSIVES MIXER OPERATOR Primary Care Provider Kathleen Strauss APRN EXPLOSIVES MIXER OPERATOR Unavailable [phone] Joel Deleon MD Unavailable [phone] Rob Miller MD Unavailable [phone] Jazmín Balbuena APRN EXPLOSIVES MIXER OPERATOR Unavailable +[phone] Donna Olivera PA-C Unavailable Héctor Good PhD Unavailable [phone] Eduar Brandon MD Unavailable Un available Eduar Brandon MD Unavailable Un available Jelena Resendiz APRN EXPLOSIVES MIXER OPERATOR Unavailable Yobani Amin MD Unavailable + 51 Yobani Amin MD Unavailable + 51 Rob Miller MD Unavailable + [phone] Eduar Brandon MD Unavailable Un available Encounter Details Date Type Department Care Team (Late st Contact Info) Description 06/28/2019 MyC Medical [facility] [place] [address] [place] [address] Jelena Resendiz APRN EXPLOSIVES MIXER OPERATOR [address] [place] [address] Social History Tobacco Use Types Packs/Day Years Used Date Smoking Tobacco: Former Cigarettes Q uit: 12/31/1978 Smokeless Tobacco: Never Alcohol Use Standard Drinks/Week Comments Yes 0 (1 standard drink = 0.6 oz pur e alcohol) oCCASIONAL PHQ-2 Answer Date Recorded PHQ-2 Score 0 04/26/2019 Sex and Gender Information Value Date Recorded Sex Assigned at Male 05/22/2019 3:55 PM ENVIRONMENTAL ENGINEERING PROFESSOR Legal Sex Male 4:06 AM ENVIRONMENTAL ENGINEERING PROFESSOR Gender Identity Male 05/22/2019 3:55 PM ENVIRONMENTAL ENGINEERING PROFESSOR Sexual Orientation Straight 01/07/2021 7: 03 AM CDT documented as of this encounter Plan of Treatment Upcoming Encounters Date Type Department Care Team (Late st Contact Info) Description 12/16/2024 10:10 AM CDT Office Visit [facility] [address] [phone] Yobani Amin MD [address] [place] [address] documented as of this encounter Visit Diagnoses Not on filedocumented in this encounter Additional Health Concerns Infection Onset Date Last Indicated Resolved Time Rule Out COVID-19 06/08/2021 06/08/2021 06/09/2021 6:57 PM ENVIRONMENTAL ENGINEERING PROFESSOR Rule Out COVID-19 04/29/2022 04/29/2022 04/29/2022 11:54 PM CDT Assessment Noted Time PHQ-9 Depression Total Score: 6 02/21/20 9:55 AM CDT documented as of this encounter Care Teams Lotus Notes Administrator Relationship Specialty Start Date End Date Kathleen Strauss APRN EXPLOSIVES MIXER OPERATOR [address] [place], [place] [address] PCP - General Nurse Practitioner - Family 8/20/18 Kathleen Strauss APRN EXPLOSIVES MIXER OPERATOR [address] [place] [address] Assigned PCP 03/04/18 Joel Deleon MD [address] [place], [place] [address] Assigned Heart and Vascular Provider 04/24/20 11/14/20 Rob Miller MD [address] [place] [address] Assigned Surgical Provider 04/24/20 06/05/21 Jazmín Balbuena APRN EXPLOSIVES MIXER OPERATOR [address] [place], [place] [address] Assigned Heart and Vascular Provider 12/13/20 03/20/21 Donna Olivera PA-C [address] [place] [address] Physician Esl Instructor Dermatology 01/15/21 Héctor Good, PhD [address] [place] [address] Assigned Behavioral Health Provider 05/23/21 03/18/22 Eduar Brandon MD [address] [place] [address] Cardiovascular Disease 05/02/22 Eduar Brandon MD Assigned Heart and Vascular Provider 05/21/22 06/24/22 Jelena Resendiz APRN EXPLOSIVES MIXER OPERATOR [address] [place] [address] Assigned Heart and Vascular Provider 06/25/22 12/09/22 Yobani Amin MD [address] [place], [place] [phone] Neurology 08/29/22 Yobani Amin MD [address] [place] [address] Assigned Neuroscience Provider 09/10/22 Rob Miller MD [address] [place] [address] Dermatology 12/19/22 Eduar Brandon MD Assigned Heart and Vascular Provider 12/10/22 06/23/24 documented as of this encounter
--- OUTSIDE RECORDS SUMMARY | 2024-07-04 09:39 | XMS_ITS | Encounter Summary ---
Author Organization [place] Address [address] [place] [address] Care Team Providers Care Trapeze Artist Name Role Phone Kathleen Strauss LIVESTOCK LABORER SENIOR TECHNICAL MANAGER Primary Care Provider Kathleen Strauss APRN SENIOR TECHNICAL MANAGER Unavailable [phone] Joel Deleon MD Unavailable [phone] Rob Miller MD Unavailable + [phone] Jazmín Balbuena APRN SENIOR TECHNICAL MANAGER Unavailable [phone] Donna Olivera PA-C Unavailable [phone] Héctor Good PhD Unavailable +[phone] Eduar Brandon MD Unavailable Un available Eduar Brandon MD Unavailable Un available Jelena Resendiz APRN SENIOR TECHNICAL MANAGER Unavailable Yobani Amin MD Unavailable + 51 Yobani Amin MD Unavailable + 51 Rob Miller MD Unavailable + [phone] Eduar Brandon MD Unavailable Un available Encounter Details Date Type Department Care Team (Late st Contact Info) Description 01/10/2019 MyC Medical [facility] [address] [place] [phone] Kathleen Strauss APRN SENIOR TECHNICAL MANAGER [address] [place] [address] Insomnia, unspecified type (Primary Dx) Social History Tobacco Use Types Packs/Day Years Used Date Smoking Tobacco: Former Cigarettes Q uit: 12/31/1978 Smokeless Tobacco: Never Alcohol Use Standard Drinks/Week Comments Yes 0 (1 standard drink = 0.6 oz pur e alcohol) oCCASIONAL PHQ-2 Answer Date Recorded PHQ-2 Score 1 07/13/2018 Sex and Gender Information Value Date Recorded Sex Assigned at Male 05/22/2019 3:55 PM CALL CENTER REPRESENTATIVE Legal Sex Male 4:06 AM CALL CENTER REPRESENTATIVE Gender Identity Male 05/22/2019 3:55 PM CALL CENTER REPRESENTATIVE Sexual Orientation Straight 01/07/2021 7: 03 AM CDT documented as of this encounter Plan of Treatment Upcoming Encounters Date Type Department Care Team (Late st Contact Info) Description 12/16/2024 10:10 AM CDT Office Visit [facility] [address] [phone] Yobani Amin MD [address] [place] [address] documented as of this encounter Visit Diagnoses Diagnosis Insomnia, unspecified type- Primary documented in this encounter Additional Health Concerns Infection Onset Date Last Indicated Resolved Time Rule Out COVID-19 06/08/2021 06/08/2021 06/09/2021 6:57 PM CALL CENTER REPRESENTATIVE Rule Out COVID-19 04/29/2022 04/29/2022 04/29/2022 11:54 PM CDT Assessment Noted Time PHQ-9 Depression Total Score: 0 08/13/19 19 1:04 PM CALL CENTER REPRESENTATIVE documented as of this encounter Care Teams Trapeze Artist Relationship Specialty Start Date End Date Kathleen Strauss APRN SENIOR TECHNICAL MANAGER [address] [place] [address] PCP - General Nurse Practitioner - Family 02/19/18 Kathleen Strauss APRN SENIOR TECHNICAL MANAGER [address] [place] [address] Assigned PCP 03/04/18 Joel Deleon MD [address] [place], [place] [address] Assigned Heart and Vascular Provider 04/24/20 11/14/20 Rob Miller MD [address] [place] [address] Assigned Surgical Provider 04/24/20 06/05/21 Jazmín Balbuena APRN SENIOR TECHNICAL MANAGER [address] [place], [place] [address] Assigned Heart and Vascular Provider 12/13/20 03/20/21 Donna Olivera PA-C [address] [place] [address] Physician Records Technician Dermatology 01/15/21 Héctor Good, PhD [address] [place] [address] Assigned Behavioral Health Provider 05/23/21 03/18/22 Eduar Brandon MD [address] [place] [address] Cardiovascular Disease 05/02/22 Eduar Brandon MD Assigned Heart and Vascular Provider 05/21/22 06/24/22 Jelena Resendiz APRN SENIOR TECHNICAL MANAGER [address] [place] [address] Assigned Heart and Vascular Provider 06/25/22 12/09/22 Yobani Amin MD [address] [place] [id number] Neurology 08/29/22 Yobani Amin MD [address] [place] [address] Assigned Neuroscience Provider 09/10/22 Rob Miller MD [address] [place] [address] Dermatology 12/19/22 Eduar Brandon MD Assigned Heart and Vascular Provider 12/10/22 06/23/24 documented as of this encounter
--- OUTSIDE RECORDS SUMMARY | 2024-07-04 09:39 | XMS_ITS | Encounter Summary ---
Author Organization [place] Address [address] [facility] [place] [address] Care Team Providers Care Television Actor Name Role Phone Kathleen Strauss REHABILITATION INSPECTOR PHOTOGRAPHER APPRENTICE LITHOGRAPHIC Primary Care Provider Kathleen Strauss APRN PHOTOGRAPHER APPRENTICE LITHOGRAPHIC Unavailable [phone] Joel Deleon MD Unavailable [phone] Rob Miller MD Unavailable [phone] Jazmín Balbuena APRN PHOTOGRAPHER APPRENTICE LITHOGRAPHIC Unavailable +[phone] Donna Olivera PA-C Unavailable Héctor Good PhD Unavailable +[phone] Eduar Brandon MD Unavailable Un available Eduar Brandon MD Unavailable Un available Jelena Resendiz APRN PHOTOGRAPHER APPRENTICE LITHOGRAPHIC Unavailable Yobani Amin MD Unavailable + 51 Yobani Amin MD Unavailable + 51 Rob Miller MD Unavailable + [phone] Eduar Brandon MD Unavailable Un available Reason for Visit * Reason Onset Date Comments Derm Problem 12/30/2019 Update for Provi chetan Encounter Details Date Type Department Care Team (Late st Contact Info) Description 12/30/2019 MyC Medical Advice [facility] [address] [place] [address] Rob Miller MD [address] [place] [address] Derm Problem (Update for Provider) Social History Tobacco Use Types Packs/Day Years Used Date Smoking Tobacco: Former Cigarettes Q uit: 12/31/1978 Smokeless Tobacco: Never Alcohol Use Standard Drinks/Week Comments Yes 0 (1 standard drink = 0.6 oz pur e alcohol) oCCASIONAL PHQ-2 Answer Date Recorded PHQ-2 Score 0 04/26/2019 Sex and Gender Information Value Date Recorded Sex Assigned at Male 05/22/2019 3:55 PM NEURO INTENSIVIST PHYSICIAN Legal Sex Male 4:06 AM NEURO INTENSIVIST PHYSICIAN Gender Identity Male 05/22/2019 3:55 PM NEURO INTENSIVIST PHYSICIAN Sexual Orientation Straight 01/07/2021 7: 03 AM CDT documented as of this encounter Miscellaneous Notes * Telephone Encounter - Shelby Owens RN - 12/30/2019 12:06 PM CDT I left pharmacy a detailed message with clarification and Call if questions. I sent My chart reply to patient. Shelby Owens RN * Telephone Encounter - Rob Miller MD - 12/30/2019 11:51 AM CDT 150mg daily for 3 days * Telephone Encounter - Shelby Owens RN - 12/30/2019 11:28 AM CDT Can you clarify rx? 150 mg daily? For how long?.. I only see 3 tablets ordered. Please advise. Shelby Owens RN * Telephone Encounter - Rob Miller MD - 12/30/2019 11:25 AM CDT I sent in some diflucan * Telephone Encounter - Shelby Owens RN - 12/30/2019 10:51 AM CDT See my chart message. Shelby Owens RN documented in this encounter Plan of Treatment Upcoming Encounters Date Type Department Care Team (Late st Contact Info) Description 12/16/2024 10:10 AM CDT Office Visit [facility] [address] [address] Yobani Amin MD [address] [facility] [address] [place] [address] documented as of this encounter Visit Diagnoses Diagnosis Intertrigo- Primary Other specified erythematous condition documented in this encounter Additional Health Concerns Infection Onset Date Last Indicated Resolved Time Rule Out COVID-19 06/08/2021 06/08/2021 06/09/2021 6:57 PM NEURO INTENSIVIST PHYSICIAN Rule Out COVID-19 04/29/2022 04/29/2022 04/29/2022 11:54 PM CDT Assessment Noted Time PHQ-9 Depression Total Score: 1 11/27/19 20 8:24 AM CDT documented as of this encounter Care Teams Television Actor Relationship Specialty Start Date End Date Kathleen Strauss APRN PHOTOGRAPHER APPRENTICE LITHOGRAPHIC [address] [place] [address] PCP - General Nurse Practitioner - Family 02/19/18 Kathleen Strauss APRN PHOTOGRAPHER APPRENTICE LITHOGRAPHIC [address] [place] [address] Assigned PCP 03/04/18 Joel Deleon MD [address] [place] [address] Assigned Heart and Vascular Provider 04/24/20 11/14/20 Rob Miller MD [address] [place] [address] Assigned Surgical Provider 04/24/20 06/05/21 Jazmín Balbuena APRN PHOTOGRAPHER APPRENTICE LITHOGRAPHIC [address] [place] [address] Assigned Heart and Vascular Provider 12/13/20 03/20/21 Donna Olivera PA-C [address] [place] [address] Physician Safety And Health Consultant Dermatology 01/15/21 Héctor Good, PhD [address] [place] [address] Assigned Behavioral Health Provider 05/23/21 03/18/22 Eduar Brandon MD [address] [place] [address] Cardiovascular Disease 05/02/22 Eduar Brandon MD Assigned Heart and Vascular Provider 05/21/22 06/24/22 Jelena Resendiz APRN PHOTOGRAPHER APPRENTICE LITHOGRAPHIC [address] [place] [address] Assigned Heart and Vascular Provider 06/25/22 12/09/22 Yobani Amin MD [address] [place] [address] Neurology 08/29/22 Yobani Amin MD [address] [place] [address] Assigned Neuroscience Provider 09/10/22 Rob Miller MD [address] [place] [address] Dermatology 12/19/22 Eduar Brandon MD Assigned Heart and Vascular Provider 12/10/22 06/23/24 documented as of this encounter
--- OUTSIDE RECORDS SUMMARY | 2024-07-04 09:39 | XMS_ITS | Encounter Summary ---
Author Organization [place] Address [address] [facility] [place] [address] Care Team Providers Care Parachute Manufacturing Supervisor Name Role Phone Kathleen Strauss AMPOULE FILLER MOVING PICTURE PRODUCER Primary Care Provider Kathleen Strauss APRN MOVING PICTURE PRODUCER Unavailable [phone] Joel Deleon MD Unavailable [phone] Rob Miller MD Unavailable + [phone] Jazmín Balbuena APRN MOVING PICTURE PRODUCER Unavailable [phone] Donna Olivera PA-C Unavailable Héctor Good PhD Unavailable +[phone] Eduar Brandon MD Unavailable Un available Eduar Brandon MD Unavailable Un available Jelena Resendiz APRN MOVING PICTURE PRODUCER Unavailable Yobani Amin MD Unavailable + 51 Yobani Amin MD Unavailable + 51 Rob Miller MD Unavailable + [phone] Eduar Brandon MD Unavailable Un available Encounter Details Date Type Department Care Team (Late st Contact Info) Description 01/08/[address] [facility] [address] [place] [address] Rob Miller MD [address] [place] [address] Social History Tobacco Use Types Packs/Day Years Used Date Smoking Tobacco: Former Cigarettes Q uit: 12/31/1978 Smokeless Tobacco: Never Alcohol Use Standard Drinks/Week Comments Yes 0 (1 standard drink = 0.6 oz pur e alcohol) oCCASIONAL PHQ-2 Answer Date Recorded PHQ-2 Score 0 04/26/2019 Sex and Gender Information Value Date Recorded Sex Assigned at Male 05/22/2019 3:55 PM MILITARY ANALYST Legal Sex Male 4:06 AM MILITARY ANALYST Gender Identity Male 05/22/2019 3:55 PM MILITARY ANALYST Sexual Orientation Straight 01/07/2021 7: 03 AM CDT COVID-19 Exposure Response Date Recorded In the last month, have you been in contact with someone who was confirmed or suspected to have Coronavirus / COVID-19? No / Unsure 01/10/2020 10:29 AM CDT documented as of this encounter Miscellaneous Notes * Telephone Encounter - Rosa Maria Young RN - 01/09/2020 8:19 AM CDT Patient seen last virtually 12/2019. Due for follow-up in 2 months or sooner. Advised to discuss with provider via virtual or office visit since no he is having no relief Rosa Maria Palafox RN Specialty Clinics * Telephone Encounter - Rob Miller MD - 01/09/2020 8:01 AM CDT I have not seen the patient since 2018. I would make a follow up appt. * Telephone Encounter - Rosa Maria Young RN - 01/08/2020 1:32 PM CDT ELIZABETH 12/06/2019: 1. Intertrigo desitin bedtime Loprox daily Nystatin powder Fluconazole ordered 12/30/2019 Would you like patient back for office visit or other recommendations? Thank you, Rosa Maria Palafox RN Specialty Clinics documented in this encounter Plan of Treatment Upcoming Encounters Date Type Department Care Team (Late st Contact Info) Description 12/16/2024 10:10 AM CDT Office Visit [facility] Neurology [facility] [address] [place] [address] Yobani Amin MD [address] [place] [address] documented as of this encounter Visit Diagnoses Not on filedocumented in this encounter Additional Health Concerns Infection Onset Date Last Indicated Resolved Time Rule Out COVID-19 06/08/2021 06/08/2021 06/09/2021 6:57 PM MILITARY ANALYST Rule Out COVID-19 04/29/2022 04/29/2022 04/29/2022 11:54 PM CDT Assessment Noted Time PHQ-9 Depression Total Score: 1 11/27/19 20 8:24 AM CDT documented as of this encounter Care Teams Parachute Manufacturing Supervisor Relationship Specialty Start Date End Date Kathleen Strauss APRN MOVING PICTURE PRODUCER [address] [place] [address] PCP - General Nurse Practitioner - Family 02/19/18 Kathleen Strauss APRN MOVING PICTURE PRODUCER [address] [place] [address] Assigned PCP 03/04/18 Joel Deleon MD [address] [facility] [address] [place] [address] Assigned Heart and Vascular Provider 04/24/20 11/14/20 Rob Miller MD [address] [place] [address] Assigned Surgical Provider 04/24/20 06/05/21 Jazmín Balbuena APRN MOVING PICTURE PRODUCER [address] [place] [address] Assigned Heart and Vascular Provider 12/13/20 03/20/21 Donna Olivera PA-C [address] [place] [address] Physician Canceling Machine Operator Dermatology 01/15/21 Héctor Good, PhD [address] [place] [address] Assigned Behavioral Health Provider 05/23/21 03/18/22 Eduar Brandon MD [address] [place] [address] Cardiovascular Disease 05/02/22 Eduar Brandon MD Assigned Heart and Vascular Provider 05/21/22 06/24/22 Jelena Resendiz APRN MOVING PICTURE PRODUCER [address] [place] [address] Assigned Heart and Vascular Provider 06/25/22 12/09/22 Yobani Amin MD [address] [place] [address] Neurology 08/29/22 Yobani Amin MD [address] [place] [address] Assigned Neuroscience Provider 09/10/22 Rob Miller MD [address] [place] [address] Dermatology 12/19/22 Eduar Brandon MD Assigned Heart and Vascular Provider 12/10/22 06/23/24 documented as of this encounter
--- OUTSIDE RECORDS SUMMARY | 2024-07-04 09:39 | XMS_ITS | Encounter Summary ---
Author Organization [place] Address [address] [facility] [place] [address] Care Team Providers Care Retanner Name Role Phone Kathleen Strauss CABLE PULLER FISH HOUSEKEEPER Primary Care Provider Kathleen Strauss APRN FISH HOUSEKEEPER Unavailable [phone] Joel Deleon MD Unavailable [phone] Rob Miller MD Unavailable + [phone] Jazmín Balbuena APRN FISH HOUSEKEEPER Unavailable [phone] Donna Olivera PA-C Unavailable Héctor Good PhD Unavailable [phone] Eduar Brandon MD Unavailable Un available Eduar Brandon MD Unavailable Un available Jelena Resendiz APRN FISH HOUSEKEEPER Unavailable Yobani Amin MD Unavailable + 51 Yobani Amin MD Unavailable + 51 Rob Miller MD Unavailable + [phone] Eduar Brandon MD Unavailable Un available Encounter Details Date Type Department Care Team (Late st Contact Info) Description 02/26/2019 MyC Medical [facility] [address] [place] [phone] Kathleen Strauss APRN [facility] [address] [place] [address] Social History Tobacco Use Types Packs/Day Years Used Date Smoking Tobacco: Former Cigarettes Q uit: 12/31/1978 Smokeless Tobacco: Never Alcohol Use Standard Drinks/Week Comments Yes 0 (1 standard drink = 0.6 oz pur e alcohol) oCCASIONAL PHQ-2 Answer Date Recorded PHQ-2 Score 2 02/20/2019 Sex and Gender Information Value Date Recorded Sex Assigned at Male 05/22/2019 3:55 PM MATCH UP WORKER Legal Sex Male 4:06 AM MATCH UP WORKER Gender Identity Male 05/22/2019 3:55 PM MATCH UP WORKER Sexual Orientation Straight 01/07/2021 7: 03 AM CDT documented as of this encounter Miscellaneous Notes * Telephone Encounter - Kristen Chopra RN - 02/26/2019 11:41 AM CDT See MyChart message. Kristen Powers RN documented in this encounter Plan of Treatment Upcoming Encounters Date Type Department Care Team (Late st Contact Info) Description 12/16/2024 10:10 AM CDT Office Visit [facility] [address] [phone] Yobani Amin MD [address] [place] [address] documented as of this encounter Visit Diagnoses Not on filedocumented in this encounter Additional Health Concerns Infection Onset Date Last Indicated Resolved Time Rule Out COVID-19 06/08/2021 06/08/2021 06/09/2021 6:57 PM MATCH UP WORKER Rule Out COVID-19 04/29/2022 04/29/2022 04/29/2022 11:54 PM CDT Assessment Noted Time PHQ-9 Depression Total Score: 6 02/21/20 19 9:55 AM CDT documented as of this encounter Care Teams Retanner Relationship Specialty Start Date End Date Kathleen Strauss APRN FISH HOUSEKEEPER [address] [place] [address] PCP - General Nurse Practitioner - Family 02/19/18 Kathleen Strauss APRN FISH HOUSEKEEPER [address] [place] [address] Assigned PCP 03/04/18 Joel Deleon MD [address] [place] [address] Assigned Heart and Vascular Provider 04/24/20 11/14/20 Rob Miller MD [address] [place] [address] Assigned Surgical Provider 04/24/20 06/05/21 Jazmín Balbuena APRN FISH HOUSEKEEPER [address] [place] [address] Assigned Heart and Vascular Provider 12/13/20 03/20/21 Donna Olivera PA-C [address] [place] [address] Physician Supervisor Engine Repair Dermatology 01/15/21 Héctor Good, PhD [address] [place] [address] Assigned Behavioral Health Provider 05/23/21 03/18/22 Eduar Brandon MD [address] [place] [address] Cardiovascular Disease 05/02/22 Eduar Brandon MD Assigned Heart and Vascular Provider 05/21/22 06/24/22 Jelena Resendiz APRN [facility] [address] [place] [address] Assigned Heart and Vascular Provider 06/25/22 12/09/22 Yobani Amin MD [address] [place] [address] Neurology 08/29/22 Yobani Amin MD [address] [place] [address] Assigned Neuroscience Provider 09/10/22 Rob Miller MD [address] [place] [address] Dermatology 12/19/22 Eduar Brandon MD Assigned Heart and Vascular Provider 12/10/22 06/23/24 documented as of this encounter
--- OUTSIDE RECORDS SUMMARY | 2024-07-04 09:39 | XMS_ITS | Encounter Summary ---
Author Organization [place] Address [address] [facility] [place] [address] Care Team Providers Care Supervisor Fiber Locking Name Role Phone Kathleen Strauss MEDICAL ASSEMBLER CARTRIDGE MAKER Primary Care Provider Kathleen Strauss APRN CARTRIDGE MAKER Unavailable [phone] Joel Deleon MD Unavailable [phone] Rob Miller MD Unavailable + [phone] Jazmín Balbuena APRN CARTRIDGE MAKER Unavailable +[phone] Donna Olivera PA-C Unavailable Héctor Good PhD Unavailable +[phone] Eduar Brandon MD Unavailable Un available Eduar Brandon MD Unavailable Un available Jelena Resendiz APRN CARTRIDGE MAKER Unavailable Yobani Amin MD Unavailable + 51 Yobani Amin MD Unavailable + 51 Rob Miller MD Unavailable + [phone] Eduar Brandon MD Unavailable Un available Encounter Details Date Type Department Care Team (Late st Contact Info) Description 02/26/2019 MyC Medical [facility] [address] [place] [phone] Kathleen Strauss APRN CARTRIDGE MAKER [address] [place] [address] Social History Tobacco Use Types Packs/Day Years Used Date Smoking Tobacco: Former Cigarettes Q uit: 12/31/1978 Smokeless Tobacco: Never Alcohol Use Standard Drinks/Week Comments Yes 0 (1 standard drink = 0.6 oz pur e alcohol) oCCASIONAL PHQ-2 Answer Date Recorded PHQ-2 Score 2 02/20/2019 Sex and Gender Information Value Date Recorded Sex Assigned at Male 05/22/2019 3:55 PM EDUCATION DIRECTOR Legal Sex Male 4:06 AM EDUCATION DIRECTOR Gender Identity Male 05/22/2019 3:55 PM EDUCATION DIRECTOR Sexual Orientation Straight 01/07/2021 7: 03 AM CDT documented as of this encounter Plan of Treatment Upcoming Encounters Date Type Department Care Team (Late st Contact Info) Description 12/16/2024 10:10 AM CDT Office Visit [facility] Neurology [address] [phone] Yobani Amin MD [address] [place] [address] documented as of this encounter Visit Diagnoses Not on filedocumented in this encounter Additional Health Concerns Infection Onset Date Last Indicated Resolved Time Rule Out COVID-19 06/08/2021 06/08/2021 06/09/2021 6:57 PM EDUCATION DIRECTOR Rule Out COVID-19 04/29/2022 04/29/2022 04/29/2022 11:54 PM CDT Assessment Noted Time PHQ-9 Depression Total Score: 6 02/21/20 9:55 AM CDT documented as of this encounter Care Teams Supervisor Fiber Locking Relationship Specialty Start Date End Date Kathleen Strauss APRN CARTRIDGE MAKER [address] [place] [address] PCP - General Nurse Practitioner - Family 02/19/18 Kathleen Strauss APRN CARTRIDGE MAKER [address] [place] [address] Assigned PCP 03/04/18 Joel Deleon MD [address] [place], [place] [address] Assigned Heart and Vascular Provider 04/24/20 11/14/20 Rob Miller MD [address] [place] [address] Assigned Surgical Provider 04/24/20 06/05/21 Jazmín Balbuena APRN CARTRIDGE MAKER [address] [place], [place] [address] Assigned Heart and Vascular Provider 12/13/20 03/20/21 Donna Olivera PA-C [address] [place] [address] Physician Health Screener Dermatology 01/15/21 Héctor Good, PhD [address] [place] [address] Assigned Behavioral Health Provider 05/23/21 03/18/22 Edura Brandon MD [address] [place] [address] Cardiovascular Disease 05/02/22 Eduar Brandon MD Assigned Heart and Vascular Provider 05/21/22 06/24/22 Jelena Resendiz APRN CARTRIDGE MAKER [address] [place] [address] Assigned Heart and Vascular Provider 06/25/22 12/09/22 Yobani Amin MD [address] [place] [id number] Neurology 08/29/22 Yobani Amin MD [address] [facility] [place] [id number] Assigned Neuroscience Provider 09/10/22 Rob Miller MD [address] [place] [address] Dermatology 12/19/22 Eduar Brandon MD Assigned Heart and Vascular Provider 12/10/22 06/23/24 documented as of this encounter
--- OUTSIDE RECORDS SUMMARY | 2024-07-04 09:39 | XMS_ITS | Encounter Summary ---
Author Organization [place] Address [address] [facility] [place] [address] Care Team Providers Care Plasma Cutting Machine Operator Name Role Phone Kathleen Strauss THEOLOGY TEACHER DIRECTOR OF ACQUISITION MARKETING Primary Care Provider Kathleen Strauss APRN DIRECTOR OF ACQUISITION MARKETING Unavailable [phone] Joel Deleon MD Unavailable [phone] Rob Miller MD Unavailable [phone] Jazmín Balbuena APRN DIRECTOR OF ACQUISITION MARKETING Unavailable [phone] Donna Olivera PA-C Unavailable Héctor Good PhD Unavailable [phone] Eduar Brandon MD Unavailable Un available Eduar Brandon MD Unavailable Un available Jelena Resendiz APRN DIRECTOR OF ACQUISITION MARKETING Unavailable Yobani Amin MD Unavailable + 51 Yobani Amin MD Unavailable + 51 Rob Miller MD Unavailable + [phone] Eduar Brandon MD Unavailable Un available Encounter Details Date Type Department Care Team (Late st Contact Info) Description 10/01/2018 MyC Medical [facility] [address] [place] [phone] Kathleen Strauss APRN DIRECTOR OF ACQUISITION MARKETING [address] [place] [address] Social History Tobacco Use Types Packs/Day Years Used Date Smoking Tobacco: Former Cigarettes Q uit: 12/31/1978 Smokeless Tobacco: Never Alcohol Use Standard Drinks/Week Comments Yes 0 (1 standard drink = 0.6 oz pur e alcohol) oCCASIONAL PHQ-2 Answer Date Recorded PHQ-2 Score 1 07/13/2018 Sex and Gender Information Value Date Recorded Sex Assigned at Male 05/22/2019 3:55 PM SAMPLE HAND Legal Sex Male 4:06 AM SAMPLE HAND Gender Identity Male 05/22/2019 3:55 PM SAMPLE HAND Sexual Orientation Straight 01/07/2021 7: 03 AM CDT documented as of this encounter Plan of Treatment Upcoming Encounters Date Type Department Care Team (Late st Contact Info) Description 12/16/2024 10:10 AM CDT Office Visit [facility] Neurology [address] [phone] Yobani Amin MD [address] [place] [address] documented as of this encounter Visit Diagnoses Not on filedocumented in this encounter Additional Health Concerns Infection Onset Date Last Indicated Resolved Time Rule Out COVID-19 06/08/2021 06/08/2021 06/09/2021 6:57 PM SAMPLE HAND Rule Out COVID-19 04/29/2022 04/29/2022 04/29/2022 11:54 PM CDT Assessment Noted Time PHQ-9 Depression Total Score: 0 08/13/19 19 1:04 PM SAMPLE HAND documented as of this encounter Care Teams Plasma Cutting Machine Operator Relationship Specialty Start Date End Date Kathleen Strauss APRN DIRECTOR OF ACQUISITION MARKETING [address] [place] [address] PCP - General Nurse Practitioner - Family 02/19/18 Rica, Kathleen Jackson APRN DIRECTOR OF ACQUISITION MARKETING [address] [place] [address] Assigned PCP 03/04/18 Joel Deleon MD [address] [place] [address] Assigned Heart and Vascular Provider 04/24/20 11/14/20 Rob Miller MD [address] [place] [address] Assigned Surgical Provider 04/24/20 06/05/21 Jazmín Balbuena APRN DIRECTOR OF ACQUISITION MARKETING [address] [place], [place] [address] Assigned Heart and Vascular Provider 12/13/20 03/20/21 Donna Olivera PA-C [address] [place] [address] Physician Manager Hospice Dermatology 01/15/21 Héctor Good, PhD [address] [place] [address] Assigned Behavioral Health Provider 05/23/21 03/18/22 Eduar Brandon MD [address] [place] [address] Cardiovascular Disease 05/02/22 Eduar Brandon MD Assigned Heart and Vascular Provider 05/21/22 06/24/22 Jelena Resendiz APRN DIRECTOR OF ACQUISITION MARKETING [address] [place] [address] Assigned Heart and Vascular Provider 06/25/22 12/09/22 Yobani Amin MD [address] [place] [id number] Neurology 08/29/22 Yobani Amin MD [address] [facility] [place] [address] Assigned Neuroscience Provider 09/10/22 Rob Miller MD [address] [place] [address] Dermatology 12/19/22 Eduar Brandon MD Assigned Heart and Vascular Provider 12/10/22 06/23/24 documented as of this encounter
--- OUTSIDE RECORDS SUMMARY | 2024-07-04 09:39 | XMS_ITS | Encounter Summary ---
Author Organization [place] Address [address] [facility] [place] [address] Care Team Providers Care Therapeutic Case Manager Name Role Phone Kathleen Strauss CORPORATE CONCIERGE LIME PLANT OPERATOR Primary Care Provider Kathleen Strauss APRN LIME PLANT OPERATOR Unavailable [phone] Joel Deleon MD Unavailable [phone] Rob Miller MD Unavailable [phone] Jazmín Balbuena APRN LIME PLANT OPERATOR Unavailable [phone] Donna Olivera PA-C Unavailable Héctor Good PhD Unavailable [phone] Eduar Brandon MD Unavailable Un available Eduar Brandon MD Unavailable Un available Jelena Resendiz APRN LIME PLANT OPERATOR Unavailable Yobani Amin MD Unavailable + 51 Yobani Amin MD Unavailable + 51 Rob Miller MD Unavailable [phone] Eduar Brandon MD Unavailable Un available Reason for Visit * Reason Onset Date Comments Pt. Information/instruction 09/16/2019 pict ures of both feet in preparation for upcoming Telephone visit this morning Encounter Details Date Type Department Care Team (Late st Contact Info) Description 09/16/2019 MyC Medical Advice [facility] [place] [address] [place] [phone] Jelena Resendiz APRN LIME PLANT OPERATOR [address] [place] [address] Pt. Information/instruct ion (pictures of b... Social History Tobacco Use Types Packs/Day Years Used Date Smoking Tobacco: Former Cigarettes Q uit: 12/31/1978 Smokeless Tobacco: Never Alcohol Use Standard Drinks/Week Comments Yes 0 (1 standard drink = 0.6 oz pur e alcohol) oCCASIONAL PHQ-2 Answer Date Recorded PHQ-2 Score 0 04/26/2019 Sex and Gender Information Value Date Recorded Sex Assigned at Male 05/22/2019 3:55 PM BLACKSMITH ASSISTANT Legal Sex Male 4:06 AM BLACKSMITH ASSISTANT Gender Identity Male 05/22/2019 3:55 PM BLACKSMITH ASSISTANT Sexual Orientation Straight 01/07/2021 7: 03 AM CDT COVID-19 Exposure Response Date Recorded In the last month, have you been in contact with someone who was confirmed or suspected to have Coronavirus / COVID-19? No / Unsure 09/16/2019 10:14 AM CDT documented as of this encounter Plan of Treatment Upcoming Encounters Date Type Department Care Team (Late st Contact Info) Description 12/16/2024 10:10 AM CDT Office Visit [facility] [address] [phone] Yobani Amin MD [address] [place] [address] [address] [place] [address] documented as of this encounter Visit Diagnoses Not on filedocumented in this encounter Additional Health Concerns Infection Onset Date Last Indicated Resolved Time Rule Out COVID-19 06/08/2021 06/08/2021 06/09/2021 6:57 PM BLACKSMITH ASSISTANT Rule Out COVID-19 04/29/2022 04/29/2022 04/29/2022 11:54 PM CDT Assessment Noted Time PHQ-9 Depression Total Score: 6 02/21/20 19 9:55 AM CDT documented as of this encounter Care Teams Therapeutic Case Manager Relationship Specialty Start Date End Date Kathleen Strauss APRN LIME PLANT OPERATOR [address] [place] [address] PCP - General Nurse Practitioner - Family 02/19/18 Kathleen Strauss APRN LIME PLANT OPERATOR [address] [place] [address] Assigned PCP 03/04/18 Joel Deleon MD [address] [place] [address] Assigned Heart and Vascular Provider 04/24/20 11/14/20 Rob Miller MD [address] [place] [address] Assigned Surgical Provider 04/24/20 06/05/21 Jazmín Balbuena APRN LIME PLANT OPERATOR [address] [place] [address] Assigned Heart and Vascular Provider 12/13/20 03/20/21 Donna Olivera PA-C [address] [place] [address] Physician Reimbursement Specialist Dermatology 01/15/21 Héctor Good, PhD [address] [place] [address] Assigned Behavioral Health Provider 05/23/21 03/18/22 Eduar Brandon MD [address] [place] [address] Cardiovascular Disease 05/02/22 Eduar Brandon MD Assigned Heart and Vascular Provider 05/21/22 06/24/22 Jelena Resendiz APRN [facility] [address] [place] [address] Assigned Heart and Vascular Provider 06/25/22 12/09/22 Yobani Amin MD [address] [place], [place] [phone] Neurology 08/29/22 Yobani Amin MD [address] [place] [address] Assigned Neuroscience Provider 09/10/22 Rob Miller MD [address] [place] [address] Dermatology 12/19/22 Eduar Brandon MD Assigned Heart and Vascular Provider 12/10/22 06/23/24 documented as of this encounter
--- OUTSIDE RECORDS SUMMARY | 2024-07-04 09:39 | XMS_ITS | Encounter Summary ---
Author Organization [place] Address [address] [facility] [place] [address] Care Team Providers Care Hardware Design Engineer Name Role Phone Kathleen Strauss PIPE CHANGER BATTERY CONTAINER INSPECTOR Primary Care Provider Kathleen Strauss APRN BATTERY CONTAINER INSPECTOR Unavailable [phone] Joel Deleon MD Unavailable [phone] Rob Miller MD Unavailable [phone] Jazmín Balbuena APRN BATTERY CONTAINER INSPECTOR Unavailable [phone] Donna Olivera PA-C Unavailable Héctor Good PhD Unavailable +[phone] Eduar Brandon MD Unavailable Un available Eduar Brandon MD Unavailable Un available Jelena Resendiz APRN BATTERY CONTAINER INSPECTOR Unavailable Yobani Amin MD Unavailable + 51 Yobani Amin MD Unavailable + 51 Rob Miller MD Unavailable + [phone] Eduar Brandon MD Unavailable Un available Encounter Details Date Type Department Care Team (Late st Contact Info) Description 03/11/2019 MyC Medical [facility] [address] [place] [phone] Kathleen Strauss APRN BATTERY CONTAINER INSPECTOR [address] [place] [address] Anxiety (Primary Dx) Social History Tobacco Use Types Packs/Day Years Used Date Smoking Tobacco: Former Cigarettes Q uit: 12/31/1978 Smokeless Tobacco: Never Alcohol Use Standard Drinks/Week Comments Yes 0 (1 standard drink = 0.6 oz pur e alcohol) oCCASIONAL PHQ-2 Answer Date Recorded PHQ-2 Score 2 02/20/2019 Sex and Gender Information Value Date Recorded Sex Assigned at Male 05/22/2019 3:55 PM GEAR CHANGER Legal Sex Male 4:06 AM GEAR CHANGER Gender Identity Male 05/22/2019 3:55 PM GEAR CHANGER Sexual Orientation Straight 01/07/2021 7: 03 AM CDT documented as of this encounter Plan of Treatment Upcoming Encounters Date Type Department Care Team (Late st Contact Info) Description 12/16/2024 10:10 AM CDT Office Visit [facility] Neurology [address] [phone] Yobani Amin MD [address] [place] [address] documented as of this encounter Visit Diagnoses Diagnosis Anxiety- Primary Anxiety state, unspecified documented in this encounter Additional Health Concerns Infection Onset Date Last Indicated Resolved Time Rule Out COVID-19 06/08/2021 06/08/2021 06/09/2021 6:57 PM GEAR CHANGER Rule Out COVID-19 04/29/2022 04/29/2022 04/29/2022 11:54 PM CDT Assessment Noted Time PHQ-9 Depression Total Score: 6 02/21/20 9:55 AM CDT documented as of this encounter Care Teams Hardware Design Engineer Relationship Specialty Start Date End Date Kathleen Strauss APRN BATTERY CONTAINER INSPECTOR [address] [place] [address] PCP - General Nurse Practitioner - Family 02/19/18 Kathleen Strauss APRN BATTERY CONTAINER INSPECTOR [address] [place] [address] Assigned PCP 03/04/18 Joel Deleon MD [address] [place], [place] [address] Assigned Heart and Vascular Provider 04/24/20 11/14/20 Rob Miller MD [address] [place] [address] Assigned Surgical Provider 04/24/20 06/05/21 Jazmín Blabuena APRN BATTERY CONTAINER INSPECTOR [address] [place], [place] [address] Assigned Heart and Vascular Provider 12/13/20 03/20/21 Donna Olivera PA-C [address] [place] [address] Physician Dental Professional Dermatology 01/15/21 Héctor Good, PhD [address] [place] [address] Assigned Behavioral Health Provider 05/23/21 03/18/22 Eduar Brandon MD [address] [place] [address] Cardiovascular Disease 05/02/22 Eduar Brandon MD Assigned Heart and Vascular Provider 05/21/22 06/24/22 Jelena Resendiz APRN BATTERY CONTAINER INSPECTOR [address] [place] [address] Assigned Heart and Vascular Provider 06/25/22 12/09/22 Yobani Amin MD [address] [place], [place] [phone] Neurology 08/29/22 Yobani Amin MD [address] [place] [address] Assigned Neuroscience Provider 09/10/22 Rob Miller MD [address] [place] [address] Dermatology 12/19/22 Eduar Brandon MD Assigned Heart and Vascular Provider 12/10/22 06/23/24 documented as of this encounter
--- OUTSIDE RECORDS SUMMARY | 2024-07-04 09:39 | XMS_ITS | Encounter Summary ---
Author Organization [place] Address [address] [facility] [place] [address] Care Team Providers Care Management Lead Name Role Phone Kathleen Strauss IC DESIGNER STANDARD CELLS WOOD ROOM SUPERVISOR Primary Care Provider Kathleen Strauss APRN WOOD ROOM SUPERVISOR Unavailable [phone] Joel Deleon MD Unavailable [phone] Rob Miller MD Unavailable [phone] Jazmín Balbuena APRN WOOD ROOM SUPERVISOR Unavailable [phone] Donna Olivera PA-C Unavailable Héctor Good PhD Unavailable [phone] Eduar Brandon MD Unavailable Un available Eduar Brandon MD Unavailable Un available Jelena Resendiz APRN WOOD ROOM SUPERVISOR Unavailable Yobani Amin MD Unavailable + 51 Yobani Amin MD Unavailable + 51 Rob Miller MD Unavailable + [phone] Eduar Brandon MD Unavailable Un available Encounter Details Date Type Department Care Team (Late st Contact Info) Description 03/03/2019 MyC Medical [facility] [address] [place] [phone] Kathleen Strauss APRN WOOD ROOM SUPERVISOR [address] [place] [address] Social History Tobacco Use Types Packs/Day Years Used Date Smoking Tobacco: Former Cigarettes Q uit: 12/31/1978 Smokeless Tobacco: Never Alcohol Use Standard Drinks/Week Comments Yes 0 (1 standard drink = 0.6 oz pur e alcohol) oCCASIONAL PHQ-2 Answer Date Recorded PHQ-2 Score 2 02/20/2019 Sex and Gender Information Value Date Recorded Sex Assigned at Male 05/22/2019 3:55 PM LABORER YARD Legal Sex Male 4:06 AM LABORER YARD Gender Identity Male 05/22/2019 3:55 PM LABORER YARD Sexual Orientation Straight 01/07/2021 7: 03 AM CDT documented as of this encounter Plan of Treatment Upcoming Encounters Date Type Department Care Team (Late st Contact Info) Description 12/16/2024 10:10 AM CDT Office Visit [facility] Neurology [address] [phone] Yobani Amin MD [address] [place] [address] documented as of this encounter Visit Diagnoses Not on filedocumented in this encounter Additional Health Concerns Infection Onset Date Last Indicated Resolved Time Rule Out COVID-19 06/08/2021 06/08/2021 06/09/2021 6:57 PM LABORER YARD Rule Out COVID-19 04/29/2022 04/29/2022 04/29/2022 11:54 PM CDT Assessment Noted Time PHQ-9 Depression Total Score: 6 02/21/20 9:55 AM CDT documented as of this encounter Care Teams Management Lead Relationship Specialty Start Date End Date Kathleen Strauss APRN WOOD ROOM SUPERVISOR [address] [place] [address] PCP - General Nurse Practitioner - Family 02/19/18 Kathleen Strauss APRN WOOD ROOM SUPERVISOR [address] [place] [address] Assigned PCP 03/04/18 Joel Deleon MD [address] [place], [place] [address] Assigned Heart and Vascular Provider 04/24/20 11/14/20 Rob Miller MD [address] [place] [address] Assigned Surgical Provider 04/24/20 06/05/21 Jazmín Balbuena APRN WOOD ROOM SUPERVISOR [address] [place], [place] [address] Assigned Heart and Vascular Provider 12/13/20 03/20/21 Donna Olivera PA-C [address] [place] [address] Physician Door Slinger Dermatology 01/15/21 Héctor Good, PhD [address] [place] [address] Assigned Behavioral Health Provider 05/23/21 03/18/22 Eduar Brandon MD [address] [place] [address] Cardiovascular Disease 05/02/22 Eduar Brandon MD Assigned Heart and Vascular Provider 05/21/22 06/24/22 Jelena Resendiz APRN WOOD ROOM SUPERVISOR [address] [place] [address] Assigned Heart and Vascular Provider 06/25/22 12/09/22 Yobani Amin MD [address] [place] [id number] Neurology 08/29/22 Yobani Amin MD [address] [facility] [place] [id number] Assigned Neuroscience Provider 09/10/22 Rob Miller MD [address] [place] [address] Dermatology 12/19/22 Eduar Brandon MD Assigned Heart and Vascular Provider 12/10/22 06/23/24 documented as of this encounter
--- OUTSIDE RECORDS SUMMARY | 2024-07-04 09:39 | XMS_ITS | Encounter Summary ---
Author Organization [facility] Address [address] [facility] [place] [address] Care Team Providers Care Commercial Accountant Name Role Phone Kathleen Strauss TRACTOR DISTRIBUTOR DIRECTOR GROUP SALES Primary Care Provider Kathleen Strauss APRN DIRECTOR GROUP SALES Unavailable [phone] Joel Deleon MD Unavailable [phone] Rob Miller MD Unavailable [phone] Jazmín Balbuena APRN DIRECTOR GROUP SALES Unavailable [phone] Donna Olivera PA-C Unavailable Héctor Good PhD Unavailable [phone] Eduar Brandon MD Unavailable Un available Eduar Brandon MD Unavailable Un available Jelena Resendiz APRN DIRECTOR GROUP SALES Unavailable Yobani Amin MD Unavailable + [phone] Yobani Amin MD Unavailable + 51 Rob Miller MD Unavailable + [phone] Eduar Brandon MD Unavailable Un available Encounter Details Date Type Department Care Team (Late st Contact Info) Description 09/20/2018 [facility] [address] [place] [phone] Kathleen Strauss APRN DIRECTOR GROUP SALES [address] [place] [id number] Social History Tobacco Use Types Packs/Day Years Used Date Smoking Tobacco: Former Cigarettes Q uit: 12/31/1978 Smokeless Tobacco: Never Alcohol Use Standard Drinks/Week Comments Yes 0 (1 standard drink = 0.6 oz pur e alcohol) oCCASIONAL PHQ-2 Answer Date Recorded PHQ-2 Score 1 07/13/2018 Sex and Gender Information Value Date Recorded Sex Assigned at Male 05/22/2019 3:55 PM HVAC SPECIALIST Legal Sex Male 4:06 AM HVAC SPECIALIST Gender Identity Male 05/22/2019 3:55 PM HVAC SPECIALIST Sexual Orientation Straight 01/07/2021 7: 03 AM CDT documented as of this encounter Plan of Treatment Upcoming Encounters Date Type Department Care Team (Late st Contact Info) Description 12/16/2024 10:10 AM CDT Office Visit [facility] Neurology [address] [phone] Yobani Amin MD [address] [place] [address] documented as of this encounter Visit Diagnoses Not on filedocumented in this encounter Additional Health Concerns Infection Onset Date Last Indicated Resolved Time Rule Out COVID-19 06/08/2021 06/08/2021 06/09/2021 6:57 PM HVAC SPECIALIST Rule Out COVID-19 04/29/2022 04/29/2022 04/29/2022 11:54 PM CDT Assessment Noted Time PHQ-9 Depression Total Score: 0 08/13/19 19 1:04 PM HVAC SPECIALIST documented as of this encounter Care Teams Commercial Accountant Relationship Specialty Start Date End Date Kathleen Strauss APRN DIRECTOR GROUP SALES [address] [place] [address] PCP - General Nurse Practitioner - Family 02/19/18 Rica, Kathleen Jackson APRN DIRECTOR GROUP SALES [address] [place] [address] Assigned PCP 03/04/18 Joel Deleon MD [address] [place] [address] Assigned Heart and Vascular Provider 04/24/20 11/14/20 Rob Miller MD [address] [place] [address] Assigned Surgical Provider 04/24/20 06/05/21 Jazmín Balbuena APRN DIRECTOR GROUP SALES [address] [place], [place] [address] Assigned Heart and Vascular Provider 12/13/20 03/20/21 Donna Olivera PA-C [address] [place] [address] Physician Customs Guard Dermatology 01/15/21 Héctor Good, PhD [address] [place] [address] Assigned Behavioral Health Provider 05/23/21 03/18/22 Eduar Brandon MD [address] [place] [address] Cardiovascular Disease 05/02/22 Eduar Brandon MD Assigned Heart and Vascular Provider 05/21/22 06/24/22 Jelena Resendiz APRN DIRECTOR GROUP SALES [address] [place] [address] Assigned Heart and Vascular Provider 06/25/22 12/09/22 Yobani Amin MD [address] [place] [id number] Neurology 08/29/22 Yobani Amin MD [address] [facility] [place] [address] Assigned Neuroscience Provider 09/10/22 Rob Miller MD [address] [place] [address] Dermatology 12/19/22 Eduar Brandon MD Assigned Heart and Vascular Provider 12/10/22 06/23/24 documented as of this encounter
--- OUTSIDE RECORDS SUMMARY | 2024-07-04 09:40 | XMS_ITS | Encounter Summary ---
Author Organization [facility] Address [address] [place] [address] Care Team Providers Care Manager Document Control Name Role Phone Kathy Ellison MD Unavailable Unava ilRob Cox MD Unavailable Unavaila ble Provider, No Primary Unavailable Unavailable Jose Carlos Larry Unavailable Unavailable Kathleen Strauss APRN,WEB PRODUCTION ASSISTANT Primary Care Provider [phone] Encounter Details Date Type Department Care Team (Late Contact Info) Description 06/19/2024 Travel Subj: Question naire Submission Social History Tobacco Use Types Packs/Day Years Used Date Smoking Tobacco: Former Cigarettes 0.5 15 0 01/01/1964 - 12/31/1978 Pipe Smokeless Tobacco: Never Comments:smoked a pipe durin g the time of smoking cigarettes Alcohol Use Standard Drinks/Week Comments Yes 21 (1 standard drink = 0.6 oz pu re alcohol) Depression (PHQ-9) Answer Date Recorded Last PHQ-9 Score Not on file 09/21/2019 Thoughts of self harm Not on file 09/21/2019 Sex and Gender Information Value Date Recorded Sex Assigned at Not on file Legal Sex Male 4:25 PM MEMBERSHIP ADMINISTRATOR Gender Identity Not on file Sexual Orientation Not on file documented as of this encounter Functional Status * Are you deaf or do you have serious difficulty hearing? Answer Date of Assessment Author No 03/28/2019 5:12 PM CDT Quyen Montelongo RN * Are you blind or do you have serious difficulty seeing, even when wearing glasses? Answer Date of Assessment Author No 03/28/2019 5:12 PM MIKET Quyen Montelongo RN * Do you have serious difficulty walking or climbing stairs? Answer Date of Assessment Author No 03/28/2019 5:12 PM Quyen Love RN * Do you have difficulty dressing or bathing? Answer Date of Assessment Author No 03/28/2019 5:12 PM Quyen Love RN * Do you have difficulty doing errands alone such as visiting a doctor's office or shopping because of a physical, mental, or emotional condition? Answer Date of Assessment Author No 03/28/2019 5:12 PM Quyen Love RN documented as of this encounter Mental Status * Do you have trouble concentrating, remembering, or making decisions because of a physical, mental, or emotional condition? Answer Entry Date Author Yes 04/03/2019 3:23 PM Quyen Love RN documented in this encounter Plan of Treatment Not on file documented as of this encounter Visit Diagnoses Not on filedocumented in this encounter Care Teams Manager Document Control Relationship Specialty Start Date End Date Kathleen Strauss APRN,WEB PRODUCTION ASSISTANT [address] [place] [address] PCP - General Nurse Practitioner Family 04/17/19 Kathy Ellison MD 07/31/17 Rob Jovel MD 07/31/17 Provider, [place] [address] 07/31/17 Jose Carlos Larry 07/31/17 documented as of this encounter Additional Source Comments PLEASE NOTE: Replies to this message will not be received.[facility] and [facility], [facility]
--- OUTSIDE RECORDS SUMMARY | 2024-07-04 09:40 | XMS_ITS | Encounter Summary ---
Author Organization [facility] Address [address] [place] [address] Care Team Providers Care Marketing Operations Intern Name Role Phone Kathy Ellison MD Unavailable Unava ilable Rob Jovel MD Unavailable Unavaila ble Provider, No Primary Unavailable Unavailable Jose Carlos Larry Unavailable Unavailable Kathleen Strauss APRN,WEIGHTS AND MEASURES SEALER Primary Care Provider [phone] Reason for Visit * Reason Onset Date Comments Supplies 05/17/2024 Encounter Details Date Type Department Care Team (Late st Contact Info) Description 05/17/2024 Telephone [facility] - Urology Clinic [address] [facility] [address] [place] [phone] Sarika Alejandra, KENO DEALER Dx: Bladder neck contracture (Primary Dx) Social History Tobacco Use Types [...] on file Legal Sex Male 4:25 PM ACETONE BUTTON PASTER Gender Identity Not on file Sexual Orientation Not on file documented as of this encounter Functional Status * Are you deaf or do you have serious difficulty hearing? Answer Date of Assessment Author No 03/28/2019 5:12 PM Quyen Love RN * Are you blind or do you have serious difficulty seeing, even when wearing glasses? Answer Date of Assessment Author No 03/28/2019 5:12 PM Quyen Love RN * Do you have serious difficulty [...] Quyen Love RN documented in this encounter Miscellaneous Notes * Telephone Encounter - Sarika Alejandra LPN - 05/20/2024 8:19 AM ACETONE BUTTON PASTER DME faxed to [facility]. ONE BUTTON PASTER * Telephone Encounter - Sarika Alejandra LPN - 05/17/2024 2:36 PM ACETONE BUTTON PASTER S: Patients calls for a refill on patients self catheters. B: Patient does have a follow up scheduled in July with Dr Edwards but will run out prior to the appointment. A: R: DME pended to Dr Edwards to be signed when in clinic. ONE BUTTON PASTER documented in this encounter Plan of Treatment Not on file documented as of this encounter Visit Diagnoses Diagnosis Bladder neck contracture- Primary Bladder neck obstruction documented in this encounter Care Teams Marketing Operations Intern Relationship Specialty Start Date End Date Kathleen Strauss, SILO FILLER,WEIGHTS AND MEASURES SEALER [address] [place] [address] [phone] (work) PCP - General Nurse Practitioner Family 04/17/19 Kathy Ellison MD 07/31/17 Rob Jovel MD 07/31/17 Provider, [place] [id number] 07/31/17 Jose Carlos Larry 07/31/17 documented as of this encounter Additional Source Comments PLEASE NOTE: Replies to this message will not be received.[facility] and [facility]
--- OUTSIDE RECORDS SUMMARY | 2024-07-04 09:40 | XMS_ITS | Encounter Summary ---
Author Organization [facility] Address [address] [place] [address] Care Team Providers Care Orthopedic Mechanic Name Role Phone Kathy Ellison MD Unavailable Unava ilRob Cox MD Unavailable Unavaila ble Provider, No Primary Unavailable Unavailable Jose Carlos Larry Unavailable Unavailable Kathleen Strauss APRN,BRAZING MACHINE OPERATOR HELPER Primary Care Provider [phone] Reason for Visit * Reason Comments Follow up Encounter Details Date Type Department Care Team (Late st Contact Info) Description 06/19/2024 9:00 AM SANDWICH MAKER Office Visit [facility] - Urology Clinic [address] [facility] [address] [place] [address] Brooklyn Edwards MD [address] [facility] [address] [place] [phone] Dx: Bladder neck contracture (Primary Dx) Social History Tobacco Use Types Packs/Day Years Used Date Smoking Tobacco: Former Cigarettes 0.5 15 0 01/01/1964 - 12/31/1978 Pipe Smokeless Tobacco: Never Tobacco Cessation:Counseling Given: Not Answered Comments:smoked a pipe during the time of smoking cigarettes Alcohol Use Standard Drinks/Week Comments Yes 21 (1 standard drink = 0.6 oz pu re alcohol) Depression (PHQ-9) Answer Date Recorded Last PHQ-9 Score Not on file 09/21/2019 Thoughts of self harm Not on file 09/21/2019 Sex and Gender Information Value Date Recorded Sex Assigned at Not on file Legal Sex Male 4:25 PM SANDWICH MAKER Gender Identity Not on file Sexual Orientation Not on file documented as of this encounter Last Filed Vital Signs Vital Sign Reading Time Taken Comments Blood Pressure - - Pulse - - Temperature - - Respiratory Rate 16 06/19/2024 8:32 AM SANDWICH MAKER Oxygen Saturation - - Inhaled Oxygen Concentration - - Weight 97.6 kg (215 lb 3.2 oz) 06/19/2024 8:32 A M SANDWICH MAKER Height 175.3 cm (5' 9) 06/19/2024 8:32 AM SANDWICH MAKER Body Mass Index 31.78 06/19/2024 8:32 AM SANDWICH MAKER documented in this encounter Functional Status * Are you [...] Quyen Love RN documented in this encounter Progress Notes * Brooklyn Edwards MD - 06/19/2024 9:00 AM CST [facility] AD[facility] AND P[facility]ATR[facility] UROLOGY [address] [facility] , [address], [place] [address] Patient: Jose Hidalgo Date of : 1940 (83 Y male) Primary Care Provider: Kathleen Strauss APRN,HAILEY Date of Visit: 06/19/2024 Chief Complaint: Bladder neck contracture SUBJECTIVE History of Present Illness: I had the pleasure of seeing Mr. Hidalgo again today in urology clinic. He is a very pleasant 83 Y-year-old man who I previously saw for ED, bladder neck contracture. Patient has had an AMS IPP placed in 2019. No issues with that. He does have history of bladder neck contracture. He has been calibrating that weekly with either 16 Lithuanian or 14 Lithuanian catheter. He prefers the 14 Lithuanian. 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 They have also moved from [place] to [place]. The patient's past medical history, surgical history, family history, allergies, and medications were reviewed and updated with the patient at the office visit. Review of Systems: See HPI PHYSICAL EXAM Vitals: Vitals: 06/19/24 0832 Weight: 215 lb 3.2 oz (97.6 kg) Body mass index is 31.78 kg/m??. Resp 16 Ht 69 (175.3 cm) Wt 215 lb 3.2 oz (97.6 kg) BMI 31.78 kg/m?? Physical Exam: GENERAL: well developed and nourished, in no distress NEUROLOGICAL: Alert & oriented appropriately, grossly non-focal SKIN: warm and dry, color normal HEAD: Normocephalic, atraumatic, moist mucous membranes EYES: anicteric, extraocular muscles grossly intact CHEST: normal respiratory effort LABORATORY DIAGNOSTIC PSA Date/Time Value Ref Range Status 03/15/2017 03:12 PM <0.04 0.00 - 4.00 NG/ML Final 02/24/2016 04:05 PM <0.04 0.00 - 4.00 NG/ML Final 01/05/2015 03:40 PM <0.04 0.00 - 4.00 NG/ML Final DIAGNOSTIC PSA, EXTERNAL Date/Time Value Ref Range Status 06/19/2014 12:00 AM <0.1 0.0 - 4.0 NG/ML Final 12/12/2013 12:00 AM <0.1 0.0 - 4.0 NG/ML Final 09/03/2013 08:55 AM <0.01 0.00 - 4.00 NG/ML Final 03/20/2013 02:40 PM <0.01 0.00 - 4.00 NG/ML Final 01/14/2013 09:51 AM 0.07 0.00 - 4.00 NG/ML Final Glucose Date Value Ref Range Status 02/13/2024 89 70 - 99 mg/dL Final Blood Urea Nitrogen Date Value Ref Range Status 02/13/2024 13.6 8.0 - 23.0 mg/dL Final Creatinine Date Value Ref Range Status 06/17/2024 0.87 0.67 - 1.17 mg/dL Final Chloride Date Value Ref Range Status 02/13/2024 99 98 - 107 mmol/L Final Sodium Date Value Ref Range Status 02/13/2024 136 135 - 145 mmol/L Final Potassium Date Value Ref Range Status 02/13/2024 4.2 3.4 - 5.3 mmol/L Final Calcium Date Value Ref Range Status 02/13/2024 8.2 (L) 8.8 - 10.4 mg/dL Final Comment: Reference intervals for this test were updated on 01/16/2024 to reflect our healthy population more accurately. There may be differences in the flagging of prior results with similar values performed with this method. Those prior results can be interpreted in the context of the updated reference intervals. CO2 Date Value Ref Range Status 02/13/2024 25 22 - 29 mmol/L Final IMAGING No new imaging ASSESSMENT & PLAN Jose Sales was seen today for follow up. Diagnoses and associated orders for this visit: Bladder neck contracture - DURABLE MEDICAL EQUIPMENT (OUTSIDE VENDOR, AMBULATORY ONLY); 14fr male self catheter Patient to cath weekly Orders Placed This Encounter DURABLE MEDICAL EQUIPMENT (OUTSIDE VENDOR, AMBULATORY ONLY) Follow up in about 1 year (around 06/19/2025) for Catheter refill. 83 Y M with history of bladder neck contracture. He will continue with calibration on a weekly basis with 14 Lithuanian. If he has issues, he will let me know, otherwise I will see him in about 1 year torefill. Patient should continue to have PSA checked yearly. This can be done in primary care. WICH MAKER documented in this encounter Plan of Treatment Not on file documented as of this encounter Visit Diagnoses Diagnosis Bladder neck contracture- Primary Bladder neck obstruction documented in this encounter Care Teams Orthopedic Mechanic Relationship Specialty Start Date End Date Kathleen Strauss, TOY ASSEMBLER,BRAZING MACHINE OPERATOR HELPER [address] [place] [address] PCP - General Nurse Practitioner Family 04/17/19 Kathy Ellison MD 07/31/17 Rob Jovel MD 07/31/17 Provider, [place] [address] 07/31/17 Jose Carlos Larry 07/31/17 documented as of this encounter Additional Source Comments PLEASE NOTE: Replies to this message will not be received.[facility] hospital [facility]
--- OUTSIDE RECORDS SUMMARY | 2024-07-04 09:40 | XMS_ITS | Clinical Summary ---
Author Organization [facility] Address [address] [place] [address] Care Team Providers Care Medicaid Analyst Name Role Phone Kathy Ellison MD Unavailable Unava Rob Rosen MD Unavailable Unavaila ble Provider, No Primary Unavailable Unavailable Jose Carlos Larry Unavailable Unavailable Kathleen Strauss APRN,CONTAINER FILLER Primary Care Provider [phone] Allergies Active Allergy Reactions Criticality Noted Date Comments Environmental Substances Other Low 12/21/2012 Stuffy head, itchy eyes Enoxaparin Rash Medium 12/21/2012 Penicillins Rash Medium 12/21/2012 Sulfa (Sulfonamide Antibiotics) Rash Medium 12/21/2012 Sulfabenzamide Unknown Reaction Low unsure Medications multivitamin therapeutic oral Tablet Take 1 Tablet by mouth in the morning. Active ferrous sulfate 325 mg (65 mg iron) oral Tablet, Delayed Release (E.C.) Take 1 Tablet (325 mg) by mouth every other day. Active atorvastatin (AKA: LIPITOR) 40 mg oral Tablet Take 1 Tab by mouth Daily at bedtime. 90 Tab 3 05/30/20 14 Active traZODone (AKA: DESYREL) 100 mg oral Tablet Take 1 Tab by mouth Daily at bedtime. 90 Tab 3 05/30/20 14 Active amLODIPine 5 mg oral tablet Take 0.5 Tablets (2.5 mg) by mouth in the morning. Active sertraline (AKA: ZOLOFT) 50 mg oral Tablet Take 1 Tablet (50 mg) by mouth in the morning. Active nitroglycerin (AKA: NITROSTAT) 0.4 mg sublingual Tablet, Sublingual 1 Tablet (0.4 mg) by sublingual route as directed. Active hydrocortisone (AKA: HYTONE) 2.5 % topical Cream Apply 1 application to the affected area(s) at bedtime as needed. Active nystatin (AKA: MYCOSTATIN) 100,000 unit/gram topical Powder 1 application by topical route three times daily as needed. Active clobetasol (AKA: TEMOVATE) 0.05 % topical CreamIndications:Ca ndidal balanoposthitis Apply 1 application to the affected area(s) twice daily as needed (rash). 30 g 3 07/08/19 Active clindamycin (CLEOCIN) 300 mg oral CapsuleIndications: S/P revision of total hip,Need for prophylactic antibiotic Take 2 capsules (600 mg) by mouth, one hour prior to dental procedure, for one dose. 2 capsule 11/15/19 Active metoprolol tartrate (LOPRESSOR) 25 mg oral Tablet Take 1 Tablet (25 mg) by mouth in the morning and 1 Tablet (25 mg) in the evening. Active gabapentin (NEURONTIN) 300 mg oral Capsule Take 1 Capsule (300 mg) by mouth in the morning and 1 Capsule (300 mg) in the evening. Active hydrOXYzine HCL (ATARAX) 25 mg oral Tablet Take 1 Tablet (25 mg) by mouth if needed in the morning, at noon, and before bedtime. Active miconazole nitrate (REMEDY,DESENEX) 2 % topical Powder by topical route if needed in the morning and before bedtime. Active hsecwkui-rdf-mppj fum-folic ac 7.5 mg iron-400 mcg oral Tablet Take 1 Tablet by mouth in the morning. 02/24/20 Active sennosides-docusate sodium (SENOKOT-S) 8.6-50 mg oral Tablet Take 1 Tablet by mouth in the morning and 1 Tablet in the evening. 02/13/20 Active torsemide (DEMADEX) 20 mg oral Tablet Take 1 Tablet (20 mg) by mouth as directed. 03/11/20 24 Active triamcinolone acetonide (KENALOG) 0.1 % topical Cream Apply to the affected area(s) as directed. Active ELIQUIS 5 mg oral Tablet Take 1 Tablet (5 mg) by mouth in the morning and 1 Tablet (5 mg) in the evening. 04/09/20 24 Active acetaminophen (TYLENOL) 325 mg oral Tablet Take 1-2 Tablets (325-650 mg) by mouth every 4 hours if needed. Active DURABLE MEDICAL EQUIPMENT (OUTSIDE VENDOR, AMBULATORY ONLY)Indications:Bl adder neck contracture 14fr male self catheter Patient to cath weekly 30 Each 11 06/19/20 24 025 Active aspirin (AKA: ECOTRIN) 81 mg oral Tablet, Delayed Release (E.C.) Take 81 mg by mouth once daily. 024 Discontin ued(Thera py Completed ) benazepril (AKA: LOTENSIN) 10 mg oral Tablet Take 1 Tab by mouth Daily. 90 Tab 3 05/30/20 14 024 Discontin ued(Thera py Completed ) atenolol (AKA: TENORMIN) 100 mg oral Tablet Take 100 mg by mouth once daily. 024 Discontin ued(Thera py Completed ) DURABLE MEDICAL EQUIPMENT (OUTSIDE VENDOR, AMBULATORY ONLY)Indications:Bl adder neck contracture 16fr male self catheter Patient to cath weekly 30 Each 05/20/20 24 024 Discontin ued(Reord er) Active Problems Patient Care Coordination No te Formatting of this note migh t be different from the original. Dr. 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 [place] [phone] Brooklyn Edwards MD Dx: Bladder neck contracture (Primary Dx) 06/19/2024 Travel Subj: Question naire Submission 05/17/2024 Telephone [facility] [address] [place] [phone] Sarika Alejandra, GINA Dx: Bladder neck contracture (Primary Dx) from Last 3 Months Immunizations Name Administration Dates Next Due Influenza Vac, IM, Quadrival ent, Preserv Free, Split Virus (Fluzone 65+) 05/27/2012 Pneumococcal Vac, 23-valent, IM-SQ (Pneumovax) 1 Tdap Vaccine, IM, (Adacel)(Boostrix) 05/21/2013 Varicella Vaccine, SQ (Zostavax) 04/17/2012 Family History Medical History Relation Name Comments Diabetes Father Heart Disease Father OR Other Other 1 spine problems Arthritis Other 2 Mental Health Other 3 Relation Name Status Comments Father Other 1 Other 2 Other 3 Social History Tobacco Use Types Packs/Day Years [...] on file Legal Sex Male 4:25 PM SOFTBALL WINDER Gender Identity Not on file Sexual Orientation Not on file Last Filed Vital Signs Vital Sign Reading Time Taken Comments Blood Pressure 132/80 05/19/2020 12:04 PM SOFTBALL WINDER Pulse 84 05/19/2020 12:04 PM SOFTBALL WINDER Temperature 36.4 C (97.5 F) 05/19/2020 12:04 PM SOFTBALL WINDER Respiratory Rate 16 06/19/2024 8:32 AM SOFTBALL WINDER Oxygen Saturation 96% 04/05/2019 3:12 PM CDT Inhaled Oxygen Concentration - - Weight 97.6 kg (215 lb 3.2 oz) 06/19/2024 8:32 A M SOFTBALL WINDER Height 175.3 cm (5' 9) 06/19/2024 8:32 AM SOFTBALL WINDER Body Mass Index 31.78 06/19/2024 8:32 AM SOFTBALL WINDER Plan of Treatment Health Maintenance Due Date Last Done Comments Depression Screening 1952 Medicare Annual Visit 02/09/2021 02/10/2020, 019 Lipids Standard 12/20/2027 12/19/2022, 09/02, 02/10/2020, Additional history exists DTaP/Tdap/Td Vaccines (4 - Td or Tdap) 02/05/2034 02/06/2024, 05/21/2013, 01/22/1992 HIB Vaccines Aged Out 01/22/1992 No longer eligi ble based on patient's age to complete this topic Varicella Zoster Sequential Completed 06/02, 04/04/2018, 04/17/2012 Pneumococcal Vaccine (65+ Years) Completed 11/03/2021, 04/04/2018, 03/20/2017, Additional history exists Respiratory Syncytial Virus (RSV) Vaccine Completed 06/02/2023 COVID-19 Vaccine Completed 03/29/2024, , 05/05/2023, Additional history exists Influenza Vaccine Completed 03/29/2024, , 04/16/2022, Additional history exists HPV Vaccines Aged Out No longer eligi ble based on patient's age to complete this topic Hepatitis A Vaccines Aged Out No long er eligible based on patient's age to complete this topic Hepatitis B Vaccines Aged Out No long er eligible based on patient's age to complete this topic Meningococcal Vaccines Aged Out No lo nger eligible based on patient's age to complete this topic Medical Devices Implanted Type Area Case Work Aide Device Identifier Shelf Expiration Date Model / Serial / Lot Maxwell Iz Conceal [facility] 555333-06 - [id number] Implanted:Qty : 1 on 04/04/2019 by Brooklyn Edwards MD at [facility] Genitourinary N/A: Penis [employer] 03/07/2021 [id number] / N/A / [id number] Urology Ams Prosthesis Accessory Kit Ams 700 [id number] - [id number] Implanted:Qty : 1 on 04/04/2019 by Brooklyn Edwards MD at [facility] Genitourinary N/A: Penis AMS 03/05/2024 [id number] / N/A / [id number] Cylinder 700 Ms Cxr Ms 16cm Ip - [id number] Implanted:Qty : 1 on 04/04/2019 by Brooklyn Edwards MD at [facility] Genitourinary N/A: Penis [employer] 04/19/2020 [id number] / N/A / [id number] Hardware Hardware Right: Hip Description:Right total Hip Stent-Unknown Stent - Unknown Heart Procedures Procedure Name Priority Date/Time Associated Diagnosis Comments LIPID PANEL Routine 05/23/2013 from Last 3 Months or Most Recently Relevant to Health Maintenance Results * LIPID PROFILE (05/23/2013) CHOLESTEROL, EXTERNAL TRIGLYCERIDES, EXTERNAL HDL CHOLESTEROL, EXTERNAL CALCULATED LDL, EXTERNAL DIRECT LDL, EXTERNAL CALCULATED VLDL, EXTERNAL TC/HDL, EXTERNAL CHOLESTEROL 132 TRIGLYCERIDES 144 HDL CHOLESTEROL 73 CALCULATED LDL 1.8 DIRECT LDL 31.0 CALCULATED VLDL 29.0 Patient Reported LAB CHEMISTRY ORDERABLES Final Result from Last 3 Months or Most Recently Relevant to Health Maintenance Insurance [facility] Advance Directives Documents on File Type Date Recorded Patient Hostel Parent Expl anation Advanced Directives 06/30/2012 11:12 AM S CH * Full Code (Latest Code Status on File) Date Activated Date Inactivated Comments 04/04/2019 8:26 PM 04/05/2019 8:52 PM * Full Code Date Activated Date Inactivated Comments 12/24/2012 11:15 AM 12/26/2012 5:08 PM Patient is a Full Code Care Teams Medicaid Analyst Relationship Specialty Start Date End Date Kathleen Strauss APRN,CONTAINER FILLER [address], [place] [address] PCP - General Nurse Practitioner Family 04/17/19 Kathy Ellison MD 07/31/17 Rob Jovel MD 07/31/17 Provider, [place] [address] 07/31/17 Jose Carlos Larry 07/31/17 Additional Source Comments PLEASE NOTE: Replies to this message will not be received.[facility]
--- OUTSIDE RECORDS SUMMARY | 2024-07-04 09:40 | XMS_ITS | Referral Summary ---
Author Organization [facility] Address [address] [place] [address] Care Team Providers Care Commercial Lending Assistant Name Role Phone Kathy Ellison MD Unavailable Unava ilRob Cox MD Unavailable Unavaila ble Provider, No Primary Unavailable Unavailable Jose Carlos Larry Unavailable Unavailable Kathleen Strauss APRN,RESIDUE FURNACE OPERATOR Primary Care Provider [phone] Encounters Date Type Department Care Team Description 06/19/2024 Travel Subj: Question naire Submission 06/19/2024 9:00 AM SUEDING MACHINE OPERATOR Office Visit [facility] [address] [place] [phone] Brooklyn Edwards MD Dx: Bladder neck contracture (Primary Dx) 05/17/2024 Telephone [facility] [address] [place] [phone] Sarika Alejandra LPN Dx: Bladder neck contracture (Primary Dx) from Last 3 Months Allergies [...] as needed (rash). 30 g 3 07/08/19 20 Active clindamycin (CLEOCIN) 300 mg oral CapsuleIndications: S/P revision of total hip,Need for prophylactic antibiotic Take 2 capsules (600 mg) by mouth, one hour prior to dental procedure, for one dose. 2 capsule 11/15/19 20 Active metoprolol tartrate (LOPRESSOR) 25 mg oral [...] in the morning and before bedtime. Active bhbinued-swn-cwmh fum-folic ac 7.5 mg iron-400 mcg oral Tablet Take 1 Tablet by mouth in the morning. 02/24/20 24 Active sennosides-docusate sodium (SENOKOT-S) 8.6-50 mg oral Tablet Take 1 Tablet by mouth in the morning and 1 Tablet in the evening. 02/13/20 24 Active torsemide (DEMADEX) 20 mg oral Tablet Take 1 Tablet (20 mg) by mouth as directed. 03/11/20 Active triamcinolone acetonide (KENALOG) 0.1 % topical Cream Apply to the affected area(s) as directed. Active ELIQUIS 5 mg oral Tablet Take 1 Tablet (5 mg) by mouth in the morning and 1 Tablet (5 mg) in the evening. 04/09/20 Active acetaminophen (TYLENOL) 325 mg oral Tablet Take 1-2 Tablets (325-650 mg) by mouth every 4 hours if needed. Active DURABLE MEDICAL EQUIPMENT (OUTSIDE VENDOR, AMBULATORY ONLY)Indications:Bl adder neck contracture 14fr male self catheter Patient to cath weekly 30 Each 06/19/20 24 025 Active aspirin (AKA: ECOTRIN) [...] Patient to cath weekly 30 Each 11 05/20/20 24 024 Discontin ued(Reord er) Active Problems Patient Care Coordination No te Formatting of this note migh t be different from the original. Dr. 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 15 Trigger finger, right 12/22/2014 Allergic rhinitis due to pollen 11/20/2014 Malignant neoplasm of prostate 12/25/2012 HTN (hypertension) ID (myocardial infarction) Immunizations Name Administration Dates Next Due Influenza Vac, IM, Quadrival ent, Preserv Free, Split Virus (Fluzone 65+) 05/27/2012 Pneumococcal Vac, 23-valent, IM-SQ (Pneumovax) 1 Tdap Vaccine, IM, (Adacel)(Boostrix) 05/21/2013 Varicella Vaccine, SQ (Zostavax) 04/17/2012 Social History Tobacco Use Types Packs/Day [...] on file Legal Sex Male 4:25 PM SUEDING MACHINE OPERATOR Gender Identity Not on file Sexual Orientation Not on file Last Filed Vital Signs Vital Sign Reading Time Taken Comments Blood Pressure 132/80 05/19/2020 12:04 PM SUEDING MACHINE OPERATOR Pulse 84 05/19/2020 12:04 PM SUEDING MACHINE OPERATOR Temperature 36.4 C (97.5 F) 05/19/2020 12:04 PM SUEDING MACHINE OPERATOR Respiratory Rate 16 06/19/2024 8:32 AM SUEDING MACHINE OPERATOR Oxygen Saturation 96% 04/05/2019 3:12 PM CDT Inhaled Oxygen Concentration - - Weight 97.6 kg (215 lb 3.2 oz) 06/19/2024 8:32 A M SUEDING MACHINE OPERATOR Height 175.3 cm (5' 9) 06/19/2024 8:32 AM SUEDING MACHINE OPERATOR Body Mass Index 31.78 06/19/2024 8:32 AM SUEDING MACHINE OPERATOR Functional Status * Are you deaf or [...] No 03/28/2019 5:12 PM Quyen Love RN Mental Status * Do you have trouble concentrating, remembering, or making decisions because of a physical, mental, or emotional condition? Answer Entry Date Author Yes 04/03/2019 3:23 PM Quyen Love RN Plan of Treatment Not on file Medical Devices Implanted Type Area Extractor Plant Operator Device Identifier Shelf Expiration Date Model / Serial / Lot Petrolia Iz Conceal [facility] [id number] - [id number] Implanted:Qty : 1 on 04/04/2019 by Brooklyn Edwards MD at [facility] Genitourinary N/A: Penis [employer] One 03/07/2021 [id number] / N/A / [id number] Urology [facility] Prosthesis Accessory Kit [facility] 700 [id number] - [id number] Implanted:Qty : 1 on 04/04/2019 by Brooklyn Edwards MD at [facility] Genitourinary N/A: Penis AMS 03/05/2024 [id number] / N/A / [id number] Cylinder 700 Ms Cxr Ms 16cm Ip - [id number] Implanted:Qty : 1 on 04/04/2019 by Brooklyn Edwards MD at [facility] Genitourinary N/A: Penis [employer] 04/19/2020 [id number] / N/A / [id number] Hardware Hardware Right: Hip Description:Right total Hip [...] Most Recently Relevant to Health Maintenance Insurance [address] [phone] [facility] [address] [phone] [facility] NONE (Work) [address] [phone] Advance Directives Documents on File Type Date Recorded Patient Floatman Expl anation Advanced Directives 06/30/2012 11:12 AM S CH * Full Code (Latest Code Status on File) Date Activated Date Inactivated Comments 04/04/2019 8:26 PM 04/05/2019 8:52 PM * Full Code Date Activated Date Inactivated Comments 12/24/2012 11:15 AM 12/26/2012 5:08 PM Patient is a Full Code Care Teams Commercial Lending Assistant Relationship Specialty Start Date End Date Kathleen Strauss APRN,RESIDUE FURNACE OPERATOR [address] [place] [address] PCP - General Nurse Practitioner Family 04/17/19 Kathy Ellison MD 07/31/17 Rob Jovel MD 07/31/17 Provider, [place] [address] 07/31/17 Jose Carlos Larry 07/31/17 Additional Source Comments PLEASE NOTE: Replies to this message will not be received.[facility]
--- OUTSIDE RECORDS SUMMARY | 2024-07-04 09:40 | XMS_ITS | Encounter Summary ---
Author Organization [facility] Address [address] [place] [address] Care Team Providers Care Silver Chaser Name Role Phone Kathleen Strauss POWER WOOD SAWYER FOUNTAIN ROLLER ASSEMBLER Primary Care Provider Kathleen Strauss APRN FOUNTAIN ROLLER ASSEMBLER Unavailable [phone] Kathleen Strauss APRN FOUNTAIN ROLLER ASSEMBLER Unavailable [phone] Joel Deleon MD Unavailable [phone] Rob Miller MD Unavailable [phone] Jazmín Balbuena APRN FOUNTAIN ROLLER ASSEMBLER Unavailable [phone] Donna Olivera PA-C Unavailable [phone] Héctor Good PhD Unavailable [phone] Eduar Brandon MD Unavailable Un available Eduar Brandon MD Unavailable Un available Jelena Resendiz APRN FOUNTAIN ROLLER ASSEMBLER Unavailable Yobani Amin MD Unavailable + [phone] Yobani Amin MD Unavailable + [phone] Rob Miller MD Unavailable + [phone] Eduar Brandon MD Unavailable Un available Reason for Visit * Reason Comments Medication Refill Encounter Details Date Type Department Care Team (Late st Contact Info) Description 02/15/[address] [phone] Jose Carlos Larry PA-C NO INFO AVAILABLE Medication Refill Social History Tobacco Use Types Packs/Day Years Used Date Smoking Tobacco: Former Cigarettes Q uit: 12/31/1978 Smokeless Tobacco: Never Alcohol Use Standard Drinks/Week Comments Yes 0 (1 standard drink = 0.6 oz pur e alcohol) oCCASIONAL Sex and Gender Information Value Date Recorded Sex Assigned at Male 05/22/2019 3:55 PM CPAS Legal Sex Male 4:06 AM CPAS Gender Identity Male 05/22/2019 3:55 PM CPAS Sexual Orientation Straight 01/07/2021 7: 03 AM CDT documented as of this encounter Miscellaneous Notes * Telephone Encounter - Noel Patton - 02/15/2018 8:56 AM CDT Requested Prescriptions Pending Prescriptions Disp Refills ??? benazepril (LOTENSIN) 10 MG tablet [Pharmacy Med Name: BENAZEPRIL 10 MG TAB SOLC] 85 tablet 0 Sig: TAKE ONE TABLET BY MOUTH ONE TIME DAILY AQUILINO Inhibitors (Including Combos) Protocol Failed 02/15/2018 8:42 AM Failed - Blood pressure under 140/90 in past 12 months BP Readings from Last 3 Encounters: 01/12/18 155/85 01/11/18 148/72 11/29/17 138/72 Passed - Recent (12 mo) or future (30 days) visit within the authorizing provider's specialty Patient had office visit in the last 12 months or has a visit in the next 30 days with authorizing provider or within the authorizing provider's specialty. See Patient Info tab in inbasket, or Choose Columns in Meds & Orders section of the refill encounter. Passed - Patient is age 18 or older Passed - Normal serum creatinine on file in past 12 months Recent Labs Lab Test 11/17/17 1435 CR 1.05 Passed - Normal serum potassium on file in past 12 months Recent Labs Lab Test 11/17/17 1435 POTASSIUM 4.2 Last Written Prescription Date: 02/02/17 Last Fill Quantity: 90, # refills: 3 Last office visit: 01/11/2018 with prescribing provider: Future Office Visit: Next 5 appointments (look out 90 days) Feb 19, 2018 1:00 PM CDT MyChart Physical Adult with Kathleen Strauss APRN CNP [facility] [address] [place] [phone] documented in this encounter Plan of Treatment Upcoming Encounters Date Type Department Care Team (Late st Contact Info) Description 12/16/2024 10:10 AM CDT Office Visit [facility] [place] [address] [place] [address] Yobani Amin MD [address] [place] [address] documented as of this encounter Visit Diagnoses Diagnosis Benign essential hypertension Essential hypertension, benign documented in this encounter Additional Health Concerns Infection Onset Date Last Indicated Resolved Time Rule Out COVID-19 06/08/2021 06/08/2021 06/09/2021 6:57 PM CPAS Rule Out COVID-19 04/29/2022 04/29/2022 04/29/2022 11:54 PM CDT Assessment Noted Time PHQ-9 Depression Total Score: 0 09/14/19 18 8:00 AM CDT documented as of this encounter Care Teams Silver Chaser Relationship Specialty Start Date End Date Kathleen Strauss APRN FOUNTAIN ROLLER ASSEMBLER [address] [place] [address] PCP - General Nurse Practitioner - Family 02/19/18 Kathleen Strauss APRN FOUNTAIN ROLLER ASSEMBLER [address] [place] [address] PCP - Assigned PCP 03/04/18 09/04/18 Kathleen Strauss APRN FOUNTAIN ROLLER ASSEMBLER [address] [place] [address] Assigned PCP 03/04/18 Joel Deleon MD [address] [place] [address] Assigned Heart and Vascular Provider 04/24/20 11/14/20 Rob Miller MD [address] [place] [address] Assigned Surgical Provider 04/24/20 06/05/21 Jazmín Balbuena APRN FOUNTAIN ROLLER ASSEMBLER [address] [place] [address] Assigned Heart and Vascular Provider 12/13/20 03/20/21 Donna Olivera PA-C [address] [place] [address] Physician [facility] Dermatology 01/15/21 Héctor Good, PhD [address] [place] [address] Assigned Behavioral Health Provider 05/23/21 03/18/22 Eduar Brandon MD [address] [place] [address] Cardiovascular Disease 05/02/22 Eduar Brandon MD Assigned Heart and Vascular Provider 05/21/22 06/24/22 Jelena Resendiz APRN FOUNTAIN ROLLER ASSEMBLER [address] [place] [address] Assigned Heart and Vascular Provider 06/25/22 12/09/22 Yobani Amin MD [address] [place] [address] Neurology 08/29/22 Yobani Amin MD [address] [place] [address] Assigned Neuroscience Provider 09/10/22 Rob Miller MD [address] [place] [address] Dermatology 12/19/22 Eduar Brandon MD Assigned Heart and Vascular Provider 12/10/22 06/23/24 documented as of this encounter
--- OUTSIDE RECORDS SUMMARY | 2024-07-04 09:40 | XMS_ITS | Encounter Summary ---
Author Organization [facility] Address [address] [facility] [place] [address] Care Team Providers Care Mr Teacher Name Role Phone Kathleen Strauss MATERIALS ASSOCIATE UNIT EDUCATOR Primary Care Provider Kathleen Strauss APRN UNIT EDUCATOR Unavailable [phone] Kathleen Strauss APRN UNIT EDUCATOR Unavailable [phone] Joel Deleon MD Unavailable [phone] Rob Miller MD Unavailable [phone] Jazmín Balbuena APRN UNIT EDUCATOR Unavailable [phone] Donna Olivera PA-C Unavailable [phone] Héctor Good PhD Unavailable +[phone] Eduar Brandon MD Unavailable Un available Eduar Brandon MD Unavailable Un available Jelena Resendiz APRN UNIT EDUCATOR Unavailable Yobani Amin MD Unavailable + [phone] Yobani Amin MD Unavailable + [phone] Rob Miller MD Unavailable + [phone] Eduar Brandon MD Unavailable Un available Reason for Visit * Reason Comments Medication Refill Encounter Details Date Type Department Care Team (Late st Contact Info) Description 04/27/[address] [facility] [address] [place] [phone] Priscilla Covington APRN [facility] [address] [place] [address] Medication Refill Social History Tobacco Use Types Packs/Day Years Used Date Smoking Tobacco: Former Cigarettes Q uit: 12/31/1978 Smokeless Tobacco: Never Alcohol Use Standard Drinks/Week Comments Yes 0 (1 standard drink = 0.6 oz pur e alcohol) oCCASIONAL Sex and Gender Information Value Date Recorded Sex Assigned at Male 05/22/2019 3:55 PM BUILDING CONSTRUCTION TEACHER Legal Sex Male 4:06 AM BUILDING CONSTRUCTION TEACHER Gender Identity Male 05/22/2019 3:55 PM BUILDING CONSTRUCTION TEACHER Sexual Orientation Straight 01/07/2021 7 :03 AM CDT documented as of this encounter Miscellaneous Notes * Telephone Encounter - Sobia Grover - 04/27/2018 9:29 AM CDT Requested Prescriptions Pending Prescriptions Disp Refills ??? meloxicam (MOBIC) 7.5 MG tablet [Pharmacy Med Name: MELOXICAM 7.5 MG TAB ZYDU] 90 tablet 0 Sig: TAKE ONE TABLET BY MOUTH ONE TIME DAILY NSAID Medications Failed 04/27/2018 8:40 AM Failed - Patient is age 6-64 years Failed - Normal CBC on file in past 12 months Recent Labs Lab Test 11/17/17 1435 WBC 6.9 RBC 3.77* HGB 12.8* HCT 36.7* PLT 137* Passed - Blood pressure under 140/90 in past 12 months BP Readings from Last 3 Encounters: 02/19/18 126/70 01/12/18 155/85 01/11/18 148/72 Passed - Normal ALT on file in past 12 months Recent Labs Lab Test 11/17/17 1435 ALT 25 Passed - Normal AST on file in past 12 months Recent Labs Lab Test 11/17/17 1435 AST 23 Passed - Recent (12 mo) or future (30 days) visit within the authorizing provider's specialty Patient had office visit in the last 12 months or has a visit in the next 30 days with authorizing provider or within the authorizing provider's specialty. See Patient Info tab in inbasket, or Choose Columns in Meds & Orders section of the refill encounter. Passed - Normal serum creatinine on file in past 12 months Recent Labs Lab Test 11/17/17 1435 CR 1.05 meloxicam (MOBIC) 7.5 MG tablet Last Written Prescription Date: 02/02/2018 Last Fill Quantity: 90 tablet, # refills: 0 Last office visit: 02/19/2018 with prescribing provider: Roshni Strauss Future Office Visit: Sobia Grover RT (R) (M) documented in this encounter Plan of Treatment Upcoming Encounters Date Type Department Care Team (Late st Contact Info) Description 12/16/2024 10:10 AM CDT Office Visit [facility] [address] [place] [address] Yobani Amin MD [address] [place] [address] [address] [place] [address] documented as of this encounter Visit Diagnoses Diagnosis Primary osteoarthritis involving multiple joints documented in this encounter Additional Health Concerns Infection Onset Date Last Indicated Resolved Time Rule Out COVID-19 06/08/2021 06/08/2021 06/09/2021 6:57 PM BUILDING CONSTRUCTION TEACHER Rule Out COVID-19 04/29/2022 04/29/2022 04/29/2022 11:54 PM CDT Assessment Noted Time PHQ-9 Depression Total Score: 0 02/21/20 18 8:21 AM CDT documented as of this encounter Care Teams Mr Teacher Relationship Specialty Start Date End Date Kathleen Strauss APRN UNIT EDUCATOR [address] [place] [address] PCP - General Nurse Practitioner - Family 02/19/18 Kathleen Strauss APRN UNIT EDUCATOR [address] [place] [address] PCP - Assigned PCP 03/04/18 09/04/18 Kathleen Strauss APRN UNIT EDUCATOR [address] [place] [address] Assigned PCP 03/04/18 Joel Deleon MD [address] [place] [address] Assigned Heart and Vascular Provider 04/24/20 11/14/20 Rob Miller MD [address] [place] [address] Assigned Surgical Provider 04/24/20 06/05/21 Jazmín Balbuena APRN UNIT EDUCATOR [address] [place] [address] Assigned Heart and Vascular Provider 12/13/20 03/20/21 Donna Olivera PA-C [address] [place] [address] Physician Manager Personal Dermatology 01/15/21 Héctor Good, PhD [address] [place] [address] Assigned Behavioral Health Provider 05/23/21 03/18/22 Eduar Brandon MD [address] [place] [address] Cardiovascular Disease 05/02/22 Eduar Brandon MD Assigned Heart and Vascular Provider 05/21/22 06/24/22 Jelena Resendiz APRN UNIT EDUCATOR [address] [place] [address], [place] [address] Assigned Heart and Vascular Provider 06/25/22 12/09/22 Yobani Amin MD [address] [place] [address] Neurology 08/29/22 Yobani Amin MD [address] [place] [address] Assigned Neuroscience Provider 09/10/22 Rob Miller MD [address] [place] [address] Dermatology 12/19/22 Eduar Brandon MD Assigned Heart and Vascular Provider 12/10/22 06/23/24 documented as of this encounter
--- OUTSIDE RECORDS SUMMARY | 2024-07-04 09:40 | XMS_ITS | Encounter Summary ---
Author Organization [facility] Address [address] [facility] [place] [address] Care Team Providers Care Rn Travel Name Role Phone Kathleen Strauss CLINICAL PROJECT COORDINATOR JEWEL BLOCKER AND SAWYER Primary Care Provider Kathleen Strauss APRN [employer] SAWYER Unavailable [phone] Kathleen Strauss APRN JEWEL BLOCKER AND SAWYER Unavailable [phone] Joel Deleon MD Unavailable [phone] Rob Miller MD Unavailable [phone] Jazmín Balbuena APRN JEWEL BLOCKER [employer] SAWYER Unavailable [phone] Donna Olivera PA-C Unavailable [phone] Héctor Good PhD Unavailable [phone] Eduar Brandon MD Unavailable Un available Eduar Brandon MD Unavailable Un available Jelena Resendiz APRN [employer] Unavailable Yobani Amin MD Unavailable + [phone] Yobani Amin MD Unavailable + 51 Rob Miller MD Unavailable + [phone] Eduar Brandon MD Unavailable Un available Encounter Details Date Type Department Care Team (Late st Contact Info) Description 07/23/2018 [facility] Medical Advice Initial Department [facility] Social History Tobacco Use Types Packs/Day Years Used Date Smoking Tobacco: Former Cigarettes Q uit: 12/31/1978 Smokeless Tobacco: Never Alcohol Use Standard Drinks/Week Comments Yes 0 (1 standard drink = 0.6 oz pur e alcohol) oCCASIONAL PHQ-2 Answer Date Recorded PHQ-2 Score 1 07/13/2018 Sex and Gender Information Value Date Recorded Sex Assigned at Male 05/22/2019 3:55 PM MANAGER COMMUNICATION Legal Sex Male 4:06 AM MANAGER COMMUNICATION Gender Identity Male 05/22/2019 3:55 PM MANAGER COMMUNICATION Sexual Orientation Straight 01/07/2021 7: 03 AM CDT documented as of this encounter Plan of Treatment Upcoming Encounters Date Type Department Care Team (Late Contact Info) Description 12/16/2024 10:10 AM CDT Office Visit [facility] [address] [phone] [place] [address] [place] [address] [address] [place] [address] documented as of this encounter Visit Diagnoses Not on filedocumented in this encounter Additional Health Concerns Infection Onset Date Last Indicated Resolved Time Rule Out COVID-19 06/08/2021 06/08/2021 06/09/2021 6:57 PM MANAGER COMMUNICATION Rule Out COVID-19 04/29/2022 04/29/2022 04/29/2022 11:54 PM CDT Assessment Noted Time PHQ-9 Depression Total Score: 0 02/21/20 18 8:21 AM CDT documented as of this encounter Care Teams Rn Travel Relationship Specialty Start Date End Date Kathlene Strauss APRN [employer] [address] [place] [address] PCP - General Nurse Practitioner - Family 02/19/18 Kathleen Strauss APRN [employer] [address] [place] [address] PCP - Assigned PCP 03/04/18 09/04/18 Kathleen Strauss APRN [employer] [address] [place] [address] Assigned PCP 03/04/18 Joel Deleon MD [address] [place], [place] [address] Assigned Heart and Vascular Provider 04/24/20 11/14/20 Rob Miller MD [facility] [place] [address] Assigned Surgical Provider 04/24/20 06/05/21 Jazmín Balbuena APRN [employer]WYER [address] [place] [address] Assigned Heart and Vascular Provider 12/13/20 03/20/21 Donna Olivera PA-C [address] [place] [address] Physician Music Agent Dermatology 01/15/21 Héctor Good, PhD [address] [place] [address] Assigned Behavioral Health Provider 05/23/21 03/18/22 Eduar Brandon MD [address] [place] [address] Cardiovascular Disease 05/02/22 Eduar Brandon MD Assigned Heart and Vascular Provider 05/21/22 06/24/22 Jelena Resendiz APRN J[employer]WYER [facility] [place] [address] Assigned Heart and Vascular Provider 06/25/22 12/09/22 Yobani Amin MD [address] [place] [address] Neurology 08/29/22 Yobani Amin MD [address] [place] [address] Assigned Neuroscience Provider 09/10/22 Rob Miller MD [address] [place] [address] Dermatology 12/19/22 Eduar Brandon MD Assigned Heart and Vascular Provider 12/10/22 06/23/24 documented as of this encounter
--- OUTSIDE RECORDS SUMMARY | 2024-07-04 09:41 | XMS_ITS | Encounter Summary ---
Author Organization [facility] Address [address] [place] [address] Care Team Providers Care Incinerator Plant Supervisor Name Role Phone Rob Jovel MD Primary Care Provider Un available Kathy Ellison MD Unavailable Unava ilable Provider, No Primary Primary Care Provider Unava ilable Jose Carlos Larry Primary Care Provider UnavailRob Ramon MD Unavailable Unavaila ble Provider, No Primary Unavailable Unavailable Jose Carlos Larry Unavailable Unavailable Unknown, Provider Primary Care Provider Unavaila ble Kathleen Strauss APRN,CLINICAL BIOCHEMICAL GENETICIST Primary Care Provider [phone] Encounter Details Date Type Department Care Team (Late st Contact Info) Description 12/12/2013 [facility] [address] [facility] [address] [place] [phone] Social History Tobacco Use Types Packs/Day Years Used Date Smoking Tobacco: Former Cigarettes Q uit: 12/31/1978 Smokeless Tobacco: Never Alcohol Use Standard Drinks/Week Comments Yes 0 (1 standard drink = 0.6 oz pur e alcohol) Sex and Gender Information Value Date Recorded Sex Assigned at Not on file Legal Sex Male 4:25 PM CERAMICS TECHNICIAN Gender Identity Not on file Sexual Orientation Not on file documented as of this encounter Plan of Treatment Not on file documented as of this encounter Procedures Procedure Name Priority Date/Time Associated Diagnosis Comments OUTSIDE LABS - S 12/12/2013 12:3 0 PM CDT documented in this encounter Results * OUTSIDE LABS - S (12/12/2013 12:30 PM CDT) us Scan Apu PROCEDURE NOTE Final Result documented in this encounter Visit Diagnoses Not on filedocumented in this encounter Care Teams Incinerator Plant Supervisor Relationship Specialty Start Date End Date Rob Jovel MD PCP - General 02/27/06 06/28/15 Provider, No Primary . [place] [id number] PCP - General 06/29/15 07/08/15 Jose Carlos Larry . [place] [id number] PCP - General Business Objects Consultant 07/09/15 11/01/18 Unknown, Provider . [place] [id number] PCP - General 11/02/18 04/16/19 Kathleen Strauss, POURER CRANE LADLE,CLINICAL BIOCHEMICAL GENETICIST [address] [place] [address] PCP - General Nurse Practitioner Family 04/17/19 Kathy Ellison MD 07/31/17 Rob Jovel MD 07/31/17 Provider, No Primary . [place] [id number] 07/31/17 Jose Carlos Larry 07/31/17 documented as of this encounter Additional Source Comments PLEASE NOTE: Replies to this message will not be received.[facility] and [facility]
--- OUTSIDE RECORDS SUMMARY | 2024-07-04 09:41 | XMS_ITS | Encounter Summary ---
Author Organization [facility] Address [address] [place] [address] Care Team Providers Care Clam Grower Name Role Phone Rob Jovel MD Primary Care Provider Un available Kathy Ellison MD Unavailable Unava ilable Provider, No Primary Primary Care Provider Unava ilable Jose Carlos Larry Primary Care Provider UnavailRob Ramon MD Unavailable Unavaila ble Provider, No Primary Unavailable Unavailable Jose Carlos Larry Unavailable Unavailable Unknown, Provider Primary Care Provider Unavaila ble Kathleen Strauss APRN,COST CONTROL ANALYST Primary Care Provider [phone] Encounter Details Date Type Department Care Team (Late st Contact Info) Description 06/19/2014 Scan [facility] - [facility] [address] [facility] [address] [place] [phone] Social History Tobacco Use Types Packs/Day Years Used Date Smoking Tobacco: Former Cigarettes Q uit: 12/31/1978 Smokeless Tobacco: Never Alcohol Use Standard Drinks/Week Comments Yes 0 (1 standard drink = 0.6 oz pur e alcohol) Sex and Gender Information Value Date Recorded Sex Assigned at Not on file Legal Sex Male 4:25 PM CALCIMINER Gender Identity Not on file Sexual Orientation Not on file documented as of this encounter Functional Status * Are you deaf or do you have serious difficulty hearing? Answer Date of Assessment Author No 04/07/2014 11:37 AM Carlos Fritz, SOLDERING TECHNICIAN * Are you blind or do you have serious difficulty seeing, even when wearing glasses? Answer Date of Assessment Author No 04/07/2014 11:37 AM CDCarlos Hoyt CMA * Do you have serious difficulty walking or climbing stairs? Answer Date of Assessment Author No 04/07/2014 11:37 AM Carlos Fritz CMA * Do you have difficulty dressing or bathing? Answer Date of Assessment Author No 04/07/2014 11:37 AM Carlos Fritz SOLDERING TECHNICIAN * Do you have difficulty doing errands alone such as visiting a doctor's office or shopping because of a physical, mental, or emotional condition? Answer Date of Assessment Author No 04/07/2014 11:37 AM Carlos Fritz CMA documented as of this encounter Mental Status * Do you have trouble concentrating, remembering, or making decisions because of a physical, mental, or emotional condition? Answer Entry Date Author No 04/07/2014 11:37 AM Carlos Fritz CMA documented in this encounter Plan of Treatment Not on file documented as of this encounter Procedures Procedure Name Priority Date/Time Associated Diagnosis Comments OUTSIDE LABS - S 06/19/2014 12:3 0 PM CALCIMINER documented in this encounter Results * OUTSIDE LABS - S (06/19/2014 12:30 PM CALCIMINER) us Scan Apu PROCEDURE NOTE Final Result documented in this encounter Visit Diagnoses Not on filedocumented in this encounter Care Teams Clam Grower Relationship Specialty Start Date End Date Rob Jovel MD PCP - General 02/27/06 06/28/15 Provider, No Primary . [place] [id number] PCP - General 06/29/15 07/08/15 Jose Carlos Larry . [place] [id number] PCP - General Infantry Senior Sergeant 07/09/15 11/01/18 Unknown, Provider . [place] [id number] PCP - General 11/02/18 04/16/19 Kathleen Strauss, GASTROENTEROLOGY TECHNICIAN,COST CONTROL ANALYST [address], [place] [address] PCP - General Nurse Practitioner Family 04/17/19 Kathy Ellison MD 07/31/17 Rob Jovel MD 07/31/17 Provider, No Primary . [place] [id number] 07/31/17 Jose Carlos Larry 07/31/17 documented as of this encounter Additional Source Comments PLEASE NOTE: Replies to this message will not be received.[facility] and [facility]
--- OUTSIDE RECORDS SUMMARY | 2024-07-04 09:41 | XMS_ITS | Encounter Summary ---
Author Organization [facility] Address [address] [place] [address] Care Team Providers Care Ecologist Technician Name Role Phone Rob Jovel MD Primary Care Provider Un available Kathy Ellison MD Unavailable Unava ilable Provider, No Primary Primary Care Provider Unava ilable Jose Carlos Larry Primary Care Provider UnavailRob Ramon MD Unavailable Unavaila ble Provider, No Primary Unavailable Unavailable Jose Carlos Larry Unavailable Unavailable Unknown, Provider Primary Care Provider Unavaila ble Kathleen Strauss APRN,RECREATIONAL LEADER Primary Care Provider [phone] Encounter Details Date Type Department Care Team (Late st Contact Info) Description 09/03/2013 [facility] [address] [facility] [address] [place] [phone] Social History Tobacco Use Types Packs/Day Years Used Date Smoking Tobacco: Former Cigarettes Q uit: 12/31/1978 Smokeless Tobacco: Never Alcohol Use Standard Drinks/Week Comments Yes 0 (1 standard drink = 0.6 oz pur e alcohol) Sex and Gender Information Value Date Recorded Sex Assigned at Not on file Legal Sex Male 4:25 PM WELL PULLER Gender Identity Not on file Sexual Orientation Not on file documented as of this encounter Plan of Treatment Not on file documented as of this encounter Procedures Procedure Name Priority Date/Time Associated Diagnosis Comments OUTSIDE LABS - S 09/03/2013 12:3 0 PM WELL PULLER documented in this encounter Results * OUTSIDE LABS - S (09/03/2013 12:30 PM WELL PULLER) us Scan Apu PROCEDURE NOTE Final Result documented in this encounter Visit Diagnoses Not on filedocumented in this encounter Care Teams Ecologist Technician Relationship Specialty Start Date End Date Rob Jovel MD PCP - General 02/27/06 06/28/15 Provider, No Primary . [place] [id number] PCP - General 06/29/15 07/08/15 Jose Carlos Larry . [place] [id number] PCP - General Manager Home Improvement 07/09/15 11/01/18 Unknown, Provider . [place] [id number] PCP - General 11/02/18 04/16/19 Kathleen Strauss, EXECUTIVE VICE PRESIDENT AND CHIEF OPERATING OFFICER,RECREATIONAL LEADER [address] [place] [address] PCP - General Nurse Practitioner Family 04/17/19 Kathy Ellison MD 07/31/17 Rob Jovel MD 07/31/17 Provider, No Primary . [place] [id number] 07/31/17 Jose Carlos Larry 07/31/17 documented as of this encounter Additional Source Comments PLEASE NOTE: Replies to this message will not be received.[facility] and [facility]
--- OUTSIDE RECORDS SUMMARY | 2024-07-04 09:41 | XMS_ITS | Encounter Summary ---
Author Organization [facility] Address [address] [place] [address] Care Team Providers Care Hairspring Setter Name Role Phone Rob Jovel MD Primary Care Provider Un available Kathy Ellison MD Unavailable Unava ilable Provider, No Primary Primary Care Provider Unava ilable Jose Carlos Larry Primary Care Provider UnavailRob Ramon MD Unavailable Unavaila ble Provider, No Primary Unavailable Unavailable Jose Carlos Larry Unavailable Unavailable Unknown, Provider Primary Care Provider Unavaila ble Kathleen Strauss APRN,SUPERVISOR CAR AND YARD Primary Care Provider +1- [phone] Encounter Details Date Type Department Care Team (Late st Contact Info) Description 11/19/2014 HIM Junior Web Designer [facility] Family Medicine [address] [place] [address] Rob Jovel MD Social History Tobacco Use Types Packs/Day Years Used Date Smoking Tobacco: Former Cigarettes Q uit: 12/31/1978 Smokeless Tobacco: Never Alcohol Use Standard Drinks/Week Comments Yes 0 (1 standard drink = 0.6 oz pur e alcohol) Sex and Gender Information Value Date Recorded Sex Assigned at Not on file Legal Sex Male 4:25 PM DIRECTOR GROUP SALES Gender Identity Not on file Sexual Orientation Not on file documented as of this encounter Functional Status * Are you deaf or do you have serious difficulty hearing? Answer Date of Assessment Author No 04/07/2014 11:37 AM Carlos Fritz R, MILLING MACHINE OPERATOR * Are you blind or do you have serious difficulty seeing, even when wearing glasses? Answer Date of Assessment Author No 04/07/2014 11:37 AM Carlos Fritz CMA * Do you have serious difficulty walking or climbing stairs? Answer Date of Assessment Author No 04/07/2014 11:37 AM Carlos Fritz CMA * Do you have difficulty dressing or bathing? Answer Date of Assessment Author No 04/07/2014 11:37 AM Carlos Fritz CMA * Do you have difficulty doing errands alone such as visiting a doctor's office or shopping because of a physical, mental, or emotional condition? Answer Date of Assessment Author No 04/07/2014 11:37 AM MIKET Carlos Negro CMA documented as of this encounter Mental Status * Question Answer Entry Date Author Are you in a relationship wh ere you are physically hurt, threatened and/or made to feel afraid? No 11/19/2014 9:11 AM CDT Chyna Griffiths LPN * Do you have trouble concentrating, remembering, or making decisions because of a physical, mental, or emotional condition? Answer Entry Date Author No 04/07/2014 11:37 AM Carlos Fritz CMA documented in this encounter Progress Notes * Rob Jovel MD - 11/19/2014 12:00 AM CDT JOSE TALBOT 11/19/2014 SUBJECTIVE: He is wondering about another injection in his right index finger near the base where he is getting this trigger finger. It worked for 6 months the last time, but now it has recurred. The last one I mentioned that he may want to go see Ortho for this, as likely we are just delaying the inevitable which would be a repair of this area. He is agreeable to that, but then he incidentally mentions that his noticed that he has had a couple spells. Both of them were when he was downstairs cooking, making spaghetti, and she came down, and he seemed confused and disoriented. He was not putting the ingredients in the pot, and they were sitting on the stove, and he was talking with kind of a quivering voice, not really knowing what to do. He has had 2 of these episodes that he is aware of, or that she noticed, and he does recall anything unusual happening with him other than sometimes he daydreams while driving his car and got on the wrong road once. He does not smoke. His lipids and blood pressure are in good control. He had a cardiac stent in the past. No previous history of seizures, strokes or other MACHINE OPERATOR PICKER abnormalities noted. OBJECTIVE: GENERAL: He is alert, talkative now is totally asymptomatic. CHEST: Clear. HEART: Regular rhythm. PLAN: He has some unusual transient episodes. His actually typed this up, what exactly happened, and he brought it in with him. She was very concerned, especially after the second episode, which certainly is concerning. I wonder if he has had some mild TIA symptoms or possible mild seizure symptoms are the question to be answered, and I am going to start by getting an MRI of his brain and a carotid ultrasounds, and have him talk with a Neurologist. Rob Jovel MD /[id number] documented in this encounter Plan of Treatment Not on file documented as of this encounter Visit Diagnoses Not on filedocumented in this encounter Care Teams Hairspring Setter Relationship Specialty Start Date End Date Rob Jovel MD PCP - General 02/27/06 06/28/15 Provider, [place] [address] PCP - General 06/29/15 07/08/15 [place] [address] PCP - General Tray Service Worker 07/09/15 11/01/18 Unknown, [place] [address] PCP - General 11/02/18 04/16/19 Kathleen Strauss, VICE PRESIDENT [employer],SUPERVISOR CAR AND YARD [address] [place] [address] PCP - General Nurse Practitioner Family 04/17/19 Kathy Ellison MD 07/31/17 Rob Jovel MD 07/31/17 Provider, No Primary . [place] [id number] 07/31/17 Jose Carlos Larry 07/31/17 documented as of this encounter Additional Source Comments PLEASE NOTE: Replies to this message will not be received.[facility] and [facility]
--- OUTSIDE RECORDS SUMMARY | 2024-07-04 09:42 | XMS_ITS | Encounter Summary ---
Author Organization [employer] [facility] Address [address] [place] [address] Care Team Providers Care Haircutter Name Role Phone Rob Jovel MD Primary Care Provider Un available Kathy Ellison MD Unavailable Unava ilable Provider, No Primary Primary Care Provider Unava ilable Jose Carlos Larry Primary Care Provider UnavailRob Ramon MD Unavailable Unavaila ble Provider, No Primary Unavailable Unavailable Jose Carlos Larry Unavailable Unavailable Unknown, Provider Primary Care Provider Unavaila ble Kathleen Strauss APRN,DOPE AND FABRIC WORKER Primary Care Provider [phone]- [phone] Encounter Details Date Type Department Care Team (Late st Contact Info) Description 01/14/2013 [facility] [address] [place] [phone] Social History Tobacco Use Types Packs/Day Years Used Date Smoking Tobacco: Former Cigarettes Q uit: 12/31/1978 Smokeless Tobacco: Never Alcohol Use Standard Drinks/Week Comments Yes 0 (1 standard drink = 0.6 oz pur e alcohol) Sex and Gender Information Value Date Recorded Sex Assigned at Not on file Legal Sex Male 4:25 PM PHYSICIAN ANESTHESIOLOGIST Gender Identity Not on file Sexual Orientation Not on file documented as of this encounter Plan of Treatment Not on file documented as of this encounter Procedures Procedure Name Priority Date/Time Associated Diagnosis Comments OUTSIDE LABS - S 01/14/2013 12:3 1 PM CDT documented in this encounter Results * OUTSIDE LABS - S (01/14/2013 12:31 PM CDT) us Scan Apu PROCEDURE NOTE Final Result documented in this encounter Visit Diagnoses Not on filedocumented in this encounter Care Teams Haircutter Relationship Specialty Start Date End Date Rob Jovel MD PCP - General 02/27/06 06/28/15 Provider, No Primary . [place] [id number] PCP - General 06/29/15 07/08/15 Jose Carlos Larry . [place] [id number] PCP - General Burrer Marker Axle 07/09/15 11/01/18 Unknown, Provider . [place] [id number] PCP - General 11/02/18 04/16/19 Kathleen Srtauss, INDUSTRIAL MAINTENANCE MILLWRIGHT,DOPE AND FABRIC WORKER [address] [place] [address] PCP - General Nurse Practitioner Family 04/17/19 Kathy Ellison MD 07/31/17 Rob Jovel MD 07/31/17 Provider, No Primary . [place] [id number] 07/31/17 Jose Carlos Larry 07/31/17 documented as of this encounter Additional Source Comments PLEASE NOTE: Replies to this message will not be received.[facility] and [facility]
--- OUTSIDE RECORDS SUMMARY | 2024-07-04 09:42 | XMS_ITS | Encounter Summary ---
Author Organization [employer] [facility] Address [address] [place] [address] Care Team Providers Care Graphic Art Technician Name Role Phone Rob Jovel MD Primary Care Provider Un available Kathy Ellison MD Unavailable Unava ilable Provider, No Primary Primary Care Provider Unava ilable Jose Carlos Larry Primary Care Provider UnavailRob Ramon MD Unavailable Unavaila ble Provider, No Primary Unavailable Unavailable Jose Carlos Larry Unavailable Unavailable Unknown, Provider Primary Care Provider Unavaila ble Kathleen Strauss APRN,COIL FORMER Primary Care Provider [phone]- [phone] Encounter Details Date Type Department Care Team (Late st Contact Info) Description 06/10/2013 Scan [facility] - Urology Clinic [address] [place] [phone] Social History Tobacco Use Types Packs/Day Years Used Date Smoking Tobacco: Former Cigarettes Q uit: 12/31/1978 Smokeless Tobacco: Never Alcohol Use Standard Drinks/Week Comments Yes 0 (1 standard drink = 0.6 oz pur e alcohol) Sex and Gender Information Value Date Recorded Sex Assigned at Not on file Legal Sex Male 4:25 PM CRANIOLOGIST Gender Identity Not on file Sexual Orientation Not on file documented as of this encounter Plan of Treatment Not on file documented as of this encounter Procedures Procedure Name Priority Date/Time Associated Diagnosis Comments OUTSIDE LABS - S 06/10/2013 12:3 0 PM CRANIOLOGIST documented in this encounter Results * OUTSIDE LABS - S (06/10/2013 12:30 PM CRANIOLOGIST) us Scan Apu PROCEDURE NOTE Final Result documented in this encounter Visit Diagnoses Not on filedocumented in this encounter Care Teams Graphic Art Technician Relationship Specialty Start Date End Date Rob Jovel MD PCP - General 02/27/06 06/28/15 Provider, No Primary . [place] [id number] PCP - General 06/29/15 07/08/15 Jose Carlos Larry . [place] [id number] PCP - General Autism Motor Specialist 07/09/15 11/01/18 Unknown, Provider . [place] [id number] PCP - General 11/02/18 04/16/19 Kathleen Strauss, CLOTH BOOKER,COIL FORMER [address] [place] [address] PCP - General Nurse Practitioner Family 04/17/19 Kathy Ellison MD 07/31/17 Rob Jovel MD 07/31/17 Provider, No Primary . [place] [id number] 07/31/17 Jose Carlos Larry 07/31/17 documented as of this encounter Additional Source Comments PLEASE NOTE: Replies to this message will not be received.[facility] and [facility]
--- OUTSIDE RECORDS SUMMARY | 2024-07-04 09:42 | XMS_ITS | Encounter Summary ---
Author Organization [employer] [facility] Address [address] [place] [address] Care Team Providers Care Overedge Machine Operator Name Role Phone Rob Jovel MD Primary Care Provider Un available Kathy Ellison MD Unavailable Unava ilable Provider, No Primary Primary Care Provider Unava ilable Jose Carlos Larry Primary Care Provider UnavailRob Ramon MD Unavailable Unavaila ble Provider, No Primary Unavailable Unavailable Jose Carlos Larry Unavailable Unavailable Unknown, Provider Primary Care Provider Unavaila ble Kathleen Strauss APRN,HANDBOOK WRITER Primary Care Provider [phone] Encounter Details Date Type Department Care Team (Late st Contact Info) Description 04/04/2012 Scan [facility] - Urology Clinic [address] [place] [phone] Social History Tobacco Use Types Packs/Day Years Used Date Smoking Tobacco: Never Assessed Sex and Gender Information Value Date Recorded Sex Assigned at Not on file Legal Sex Male 4:25 PM ENROBING MACHINE CORDER Gender Identity Not on file Sexual Orientation Not on file documented as of this encounter Plan of Treatment Not on file documented as of this encounter Procedures Procedure Name Priority Date/Time Associated Diagnosis Comments OUTSIDE LABS - S 04/04/2012 12:3 3 PM CDT documented in this encounter Results * OUTSIDE LABS - S (04/04/2012 12:33 PM CDT) us Scan Apu PROCEDURE NOTE Final Result documented in this encounter Visit Diagnoses Not on filedocumented in this encounter Care Teams Overedge Machine Operator Relationship Specialty Start Date End Date Rob Jovel MD PCP - General 02/27/06 06/28/15 Provider, No Primary . [place] [id number] PCP - General 06/29/15 07/08/15 Jose Carlos Larry . [place] [id number] PCP - General Senior Sales Executive 07/09/15 11/01/18 Unknown, Provider . [place] [id number] PCP - General 11/02/18 04/16/19 Kathleen Strauss, INSOLE FILLER,HANDBOOK WRITER [address] [place] [address] PCP - General Nurse Practitioner Family 04/17/19 Kathy Ellison MD 07/31/17 Rob Jovel MD 07/31/17 Provider, No Primary . [place] [id number] 07/31/17 Jose Carlos Larry 07/31/17 documented as of this encounter Additional Source Comments PLEASE NOTE: Replies to this message will not be received.[facility] and [facility]
--- OUTSIDE RECORDS SUMMARY | 2024-07-04 09:42 | XMS_ITS | Encounter Summary ---
Author Organization [employer] [facility] Address [address] [place] [address] Care Team Providers Care Hand Stemmer Name Role Phone Rob Jovel MD Primary Care Provider Un available Kathy Ellison MD Unavailable Unava ilable Provider, No Primary Primary Care Provider Unava ilable Jose Carlos Larry Primary Care Provider UnavailRob Ramon MD Unavailable Unavaila ble Provider, No Primary Unavailable Unavailable Jose Carlos Larry Unavailable Unavailable Unknown, Provider Primary Care Provider Unavaila ble Kathleen Strauss APRN,BUILDING GUARD DEPUTY SHERIFF Primary Care Provider [phone]- [phone] Encounter Details Date Type Department Care Team (Late st Contact Info) Description 07/09/2012 Scan [facility] - Urology Clinic [address] [place] [phone] Social History Tobacco Use Types Packs/Day Years Used Date Smoking Tobacco: Never Assessed Sex and Gender Information Value Date Recorded Sex Assigned at Not on file Legal Sex Male 4:25 PM BAG MACHINE TENDER Gender Identity Not on file Sexual Orientation Not on file documented as of this encounter Plan of Treatment Not on file documented as of this encounter Procedures Procedure Name Priority Date/Time Associated Diagnosis Comments OUTSIDE LABS - S 07/09/2012 12:3 3 PM BAG MACHINE TENDER documented in this encounter Results * OUTSIDE LABS - S (07/09/2012 12:33 PM BAG MACHINE TENDER) us Scan Apu PROCEDURE NOTE Final Result documented in this encounter Visit Diagnoses Not on filedocumented in this encounter Care Teams Hand Stemmer Relationship Specialty Start Date End Date Rob Jovel MD PCP - General 02/27/06 06/28/15 Provider, No Primary . [place] [id number] PCP - General 06/29/15 07/08/15 Jose aCrlos Larry . [place] [id number] PCP - General Figure Skater 07/09/15 11/01/18 Unknown, Provider . [place] [id number] PCP - General 11/02/18 04/16/19 Kathleen Strauss, UPHOLSTERY CLEANER,BUILDING GUARD DEPUTY SHERIFF [address], [place] [address] PCP - General Nurse Practitioner Family 04/17/19 Kathy Ellison MD 07/31/17 Rob Jovel MD 07/31/17 Provider, No Primary . [place] [id number] 07/31/17 Jose Carlos Larry 07/31/17 documented as of this encounter Additional Source Comments PLEASE NOTE: Replies to this message will not be received.[facility]
--- OUTSIDE RECORDS SUMMARY | 2024-07-04 09:42 | XMS_ITS | Encounter Summary ---
Author Organization [employer] [facility] Address [address] [place] [address] Care Team Providers Care Computer Science Teacher Name Role Phone Rob Jovel MD Primary Care Provider Un available Kathy Ellison MD Unavailable Unava ilable Provider, No Primary Primary Care Provider Unava ilable Jose Carlos Larry Primary Care Provider UnavailRob Ramon MD Unavailable Unavaila ble Provider, No Primary Unavailable Unavailable Jose Carlos Larry Unavailable Unavailable Unknown, Provider Primary Care Provider Unavaila ble Kathleen Strauss APRN,WHEAT CLEANER Primary Care Provider [phone] Encounter Details Date Type Department Care Team (Late st Contact Info) Description 12/18/2012 [facility] - Urology Clinic [address] [place] [phone] Social History Tobacco Use Types Packs/Day Years Used Date Smoking Tobacco: Never Assessed Sex and Gender Information Value Date Recorded Sex Assigned at Not on file Legal Sex Male 4:25 PM LIFE SKILLS TEACHER Gender Identity Not on file Sexual Orientation Not on file documented as of this encounter Functional Status documented as of this encounter Mental Status * Question Answer Entry Date Author Are you in a relationship where you are physically hurt, threatened and/or made to feel afraid? No 12/21/2012 1:38 PM Shauna [place] RN * Question Answer Entry Date Author Financial assistance for you r hospital stay may be available. Would you like information or help with this? No 12/21/2012 1:38 PM CDT Schrei fels, Jolaine D, RN Has stress or anxiety made i t difficult for you to complete daily tasks or get along with others? No 12/21/2012 1:38 PM CDT Shauna Rand RN documented in this encounter Plan of Treatment Not on file documented as of this encounter Visit Diagnoses Not on filedocumented in this encounter Care Teams Computer Science Teacher Relationship Specialty Start Date End Date Rob Jovel MD PCP - General 02/27/06 06/28/15 Provider, No Primary . [place] [id number] PCP - General 06/29/15 07/08/15 Jose Carlos Larry . [place] [id number] PCP - General Court Attendant 07/09/15 11/01/18 Unknown, Provider . [place] [id number] PCP - General 11/02/18 04/16/19 Kathleen Strauss, DIRECTOR BUSINESS DEVELOPMENT,WHEAT CLEANER [address] [place] [address] PCP - General Nurse Practitioner Family 04/17/19 Kathy Ellison MD 07/31/17 Rob Jovel MD 07/31/17 Provider, No Primary . [place] [id number] 07/31/17 Jose Carlos Larry 07/31/17 documented as of this encounter Additional Source Comments PLEASE NOTE: Replies to this message will not be received.[facility] and [facility]
--- OUTSIDE RECORDS SUMMARY | 2024-07-04 09:42 | XMS_ITS | Encounter Summary ---
Author Organization [employer] [facility] Address [address] [place] [address] Care Team Providers Care Milling Supervisor Name Role Phone Rob Jovel MD Primary Care Provider Un available Kathy Ellison MD Unavailable Unava ilable Provider, No Primary Primary Care Provider Unava ilable Jose Carlos Larry Primary Care Provider UnavailRob Ramon MD Unavailable Unavaila ble Provider, No Primary Unavailable Unavailable Jose Carlos Larry Unavailable Unavailable Unknown, Provider Primary Care Provider Unavaila ble Kathleen Strauss APRN,SURVEYOR GEODETIC Primary Care Provider [phone]- [phone] Encounter Details Date Type Department Care Team (Late st Contact Info) Description 03/20/[address] [facility] - Urology Clinic [address] [place] [phone] Social History Tobacco Use Types Packs/Day Years Used Date Smoking Tobacco: Former Cigarettes Q uit: 12/31/1978 Smokeless Tobacco: Never Alcohol Use Standard Drinks/Week Comments Yes 0 (1 standard drink = 0.6 oz pur e alcohol) Sex and Gender Information Value Date Recorded Sex Assigned at Not on file Legal Sex Male 4:25 PM FARM HAND Gender Identity Not on file Sexual Orientation Not on file documented as of this encounter Plan of Treatment Not on file documented as of this encounter Procedures Procedure Name Priority Date/Time Associated Diagnosis Comments OUTSIDE LABS - S 03/20/2013 12:3 1 PM CDT documented in this encounter Results * OUTSIDE LABS - S (03/20/2013 12:31 PM CDT) us Scan Apu PROCEDURE NOTE Final Result documented in this encounter Visit Diagnoses Not on filedocumented in this encounter Care Teams Milling Supervisor Relationship Specialty Start Date End Date Rob Jovel MD PCP - General 02/27/06 06/28/15 Provider, No Primary . [place] [id number] PCP - General 06/29/15 07/08/15 Jose Carlos Larry . [place] [id number] PCP - General Air Brakes Inspector 07/09/15 11/01/18 Unknown, Provider . [place] [id number] PCP - General 11/02/18 04/16/19 Kathleen Strauss, CUT LACE MACHINE OPERATOR,SURVEYOR GEODETIC [address] [place] [address] PCP - General Nurse Practitioner Family 04/17/19 Kathy Ellison MD 07/31/17 Rob Jovel MD 07/31/17 Provider, No Primary . [place] [id number] 07/31/17 Jose Carlos Larry 07/31/17 documented as of this encounter Additional Source Comments PLEASE NOTE: Replies to this message will not be received.[facility] and [facility]
--- OUTSIDE RECORDS SUMMARY | 2024-07-04 09:42 | XMS_ITS | Encounter Summary ---
Author Organization [employer] [facility] Address [address] [place] [address] Care Team Providers Care Quiller Machine Fixer Name Role Phone Rob Jovel MD Primary Care Provider Un available Kathy Ellison MD Unavailable Unava ilable Provider, No Primary Primary Care Provider Unava ilable Jose Carlos Larry Primary Care Provider UnavailRob Ramon MD Unavailable Unavaila ble Provider, No Primary Unavailable Unavailable Jose Carlos Larry Unavailable Unavailable Unknown, Provider Primary Care Provider Unavaila ble Kathleen Strauss APRN,APPLE CHECKER Primary Care Provider [phone] Encounter Details Date Type Department Care Team (Late st Contact Info) Description 11/01/2012 Scan [facility] - Urology Clinic [address] [place] [phone] Social History Tobacco Use Types Packs/Day Years Used Date Smoking Tobacco: Never Assessed Sex and Gender Information Value Date Recorded Sex Assigned at Not on file Legal Sex Male 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 Gender Identity Not on file Sexual Orientation Not on file documented as of this encounter Plan of Treatment Not on file documented as of this encounter Procedures Procedure Name Priority Date/Time Associated Diagnosis Comments OUTSIDE PROCEDURE - S 11/01/2012 12:29 PM CDT documented in this encounter Results * OUTSIDE PROCEDURE - S (11/01/2012 12:29 PM CDT) us Scan Apu PROCEDURE NOTE Final Result documented in this encounter Visit Diagnoses Not on filedocumented in this encounter Care Teams Quiller Machine Fixer Relationship Specialty Start Date End Date Rob Jovel MD PCP - General 02/27/06 06/28/15 Provider, No Primary . [place] [id number] PCP - General 06/29/15 07/08/15 Jose Carlos Larry . [place] [id number] PCP - General Routing Machine Operator 07/09/15 11/01/18 Unknown, Provider . [place] [id number] PCP - General 11/02/18 04/16/19 Kathleen Strauss, SERVICE MANAGER,APPLE CHECKER [address] [place] [address] PCP - General Nurse Practitioner Family 04/17/19 Kathy Ellison MD 07/31/17 Rob Jovel MD 07/31/17 Provider, No Primary . [place] [id number] 07/31/17 Jose Carlos Larry 07/31/17 documented as of this encounter Additional Source Comments PLEASE NOTE: Replies to this message will not be received.[facility] and [facility]
--- OUTSIDE RECORDS SUMMARY | 2024-07-04 09:42 | XMS_ITS | Encounter Summary ---
Author Organization [employer] [facility] Address [address] [place] [address] Care Team Providers Care Manufacturing Engineer Supervisor Name Role Phone Rob Jovel MD Primary Care Provider Un available Kathy Ellison MD Unavailable Unava ilable Provider, No Primary Primary Care Provider Unava ilable Jose Carlos Larry Primary Care Provider UnavailRob Ramon MD Unavailable Unavaila ble Provider, No Primary Unavailable Unavailable Jose Carlos Larry Unavailable Unavailable Unknown, Provider Primary Care Provider Unavaila ble Kathleen Strauss APRN,GEOPHYSICAL SUPPORT SPECIALIST Primary Care Provider +1- [phone] Encounter Details Date Type Department Care Team (Late st Contact Info) Description 04/20/2012 Scan [facility] - [facility]rology Clinic [address] [place] [phone] Social History Tobacco Use Types Packs/Day Years Used Date Smoking Tobacco: Never Assessed Sex and Gender Information Value Date Recorded Sex Assigned at Not on file Legal Sex Male 4:25 PM FRAME REPAIRER Gender Identity Not on file Sexual Orientation Not on file documented as of this encounter Plan of Treatment Not on file documented as of this encounter Procedures Procedure Name Priority Date/Time Associated Diagnosis Comments OUTSIDE PROCEDURE - S 04/20/2012 12:29 PM CDT OUTSIDE PATHOLOGY - S 04/20/2012 12:28 PM CDT documented in this encounter Results * OUTSIDE PROCEDURE - S (04/20/2012 12:29 PM CDT) us Scan Apu PROCEDURE NOTE Final Result * OUTSIDE PATHOLOGY - S (04/20/2012 12:28 PM CDT) us Scan Apu PROCEDURE NOTE Final Result documented in this encounter Visit Diagnoses Not on filedocumented in this encounter Care Teams Manufacturing Engineer Supervisor Relationship Specialty Start Date End Date Rob Jovel MD PCP - General 02/27/06 06/28/15 Provider, No Primary . [place] [id number] PCP - General 06/29/15 07/08/15 Jose Carlos Larry . [place] [id number] PCP - General Cell Geneticist 07/09/15 11/01/18 Unknown, Provider . [place] [id number] PCP - General 11/02/18 04/16/19 Kathleen Strauss, WOODWORKING MACHINE OPERATOR,GEOPHYSICAL SUPPORT SPECIALIST [address] [place] [address] PCP - General Nurse Practitioner Family 04/17/19 Kathy Ellison MD 07/31/17 Rob Jovel MD 07/31/17 Provider, No Primary . [place] [id number] 07/31/17 Jose Carlos Larry 07/31/17 documented as of this encounter Additional Source Comments PLEASE NOTE: Replies to this message will not be received.[facility] and [facility]
--- OUTSIDE RECORDS SUMMARY | 2024-07-04 09:42 | XMS_ITS | Encounter Summary ---
Author Organization [employer] [facility] Address [address] [place] [address] Care Team Providers Care Swine Genetics Researcher Name Role Phone Rob Jovel MD Primary Care Provider Un available Kathy Ellison MD Unavailable Unava ilable Provider, No Primary Primary Care Provider Unava ilable Jose Carlos Larry Primary Care Provider UnavailRob Ramon MD Unavailable Unavaila ble Provider, No Primary Unavailable Unavailable Jose Carlos Larry Unavailable Unavailable Unknown, Provider Primary Care Provider Unavaila ble Kathleen Strauss APRN,ICEBOX WORKER Primary Care Provider [phone]- [phone] Encounter Details Date Type Department Care Team (Late st Contact Info) Description 10/08/2012 Scan [facility] - Urology Clinic [address] [place] [phone] Social History Tobacco Use Types Packs/Day Years Used Date Smoking Tobacco: Never Assessed Sex and Gender Information Value Date Recorded Sex Assigned at Not on file Legal Sex Male 4:25 PM MANAGER ENT Gender Identity Not on file Sexual Orientation Not on file documented as of this encounter Plan of Treatment Not on file documented as of this encounter Procedures Procedure Name Priority Date/Time Associated Diagnosis Comments OUTSIDE LABS - S 10/08/2012 12:3 2 PM CDT documented in this encounter Results * OUTSIDE LABS - S (10/08/2012 12:32 PM CDT) us Scan Apu PROCEDURE NOTE Final Result documented in this encounter Visit Diagnoses Not on filedocumented in this encounter Care Teams Swine Genetics Researcher Relationship Specialty Start Date End Date Rob Jovel MD PCP - General 02/27/06 06/28/15 Provider, No Primary . [place] [id number] PCP - General 06/29/15 07/08/15 Jose Carlos Larry . [place] [id number] PCP - General Wheat Combine Driver 07/09/15 11/01/18 Unknown, Provider . [place] [id number] PCP - General 11/02/18 04/16/19 Kathleen Strauss, INSURANCE OFFICE SUPERVISOR,ICEBOX WORKER [address] [place] [address] PCP - General Nurse Practitioner Family 04/17/19 Kathy Ellison MD 07/31/17 Rob Jovel MD 07/31/17 Provider, No Primary . [place] [id number] 07/31/17 Jose Carlos Larry 07/31/17 documented as of this encounter Additional Source Comments PLEASE NOTE: Replies to this message will not be received.[facility] and [facility]
--- OUTSIDE RECORDS SUMMARY | 2024-07-04 09:42 | XMS_ITS | Encounter Summary ---
Author Organization [employer] [facility] Address [address] [place] [address] Care Team Providers Care Furniture Installer Name Role Phone Rob Jovel MD Primary Care Provider Un available Kathy Ellison MD Unavailable Unava ilable Provider, No Primary Primary Care Provider Unava ilable Jose Carlos Larry Primary Care Provider UnavailRob Ramon MD Unavailable Unavaila ble Provider, No Primary Unavailable Unavailable Jose Carlos Larry Unavailable Unavailable Unknown, Provider Primary Care Provider Unavaila ble Kathleen Strauss APRN,TWISTER OPERATOR Primary Care Provider [phone] Encounter Details Date Type Department Care Team (Late st Contact Info) Description 04/13/2012 Scan [facility] - Urology Clinic [address] [place] [phone] Social History Tobacco Use Types Packs/Day Years Used Date Smoking Tobacco: Never Assessed Sex and Gender Information Value Date Recorded Sex Assigned at Not on file Legal Sex Male 4:25 PM SAP BUSINESS OBJECTS CONSULTANT Gender Identity Not on file Sexual Orientation Not on file documented as of this encounter Plan of Treatment Not on file documented as of this encounter Procedures Procedure Name Priority Date/Time Associated Diagnosis Comments OUTSIDE RADIOLOGY - S 04/20/2012 12:35 PM CDT OUTSIDE LABS - S 04/13/2012 12:3 3 PM CDT documented in this encounter Results * OUTSIDE RADIOLOGY - S (04/20/2012 12:35 PM CDT) Anatomical Region Laterality Modality Other us Scan Apu PROCEDURE NOTE Final Result * OUTSIDE LABS - S (04/13/2012 12:33 PM CDT) us Scan Apu PROCEDURE NOTE Final Result documented in this encounter Visit Diagnoses Not on filedocumented in this encounter Care Teams Furniture Installer Relationship Specialty Start Date End Date Rob Jovel MD PCP - General 02/27/06 06/28/15 Provider, No Primary . [place] [id number] PCP - General 06/29/15 07/08/15 Jose Carlos Larry . [place] [id number] PCP - General Navy Diver 07/09/15 11/01/18 Unknown, Provider . [place] [id number] PCP - General 11/02/18 04/16/19 Kathleen Strauss, PURSE SEINING HAND,TWISTER OPERATOR [address] [place] [address] PCP - General Nurse Practitioner Family 04/17/19 Kathy Ellison MD 07/31/17 Rob Jovel MD 07/31/17 Provider, No Primary . [place] [id number] 07/31/17 Jose Carlos Larry 07/31/17 documented as of this encounter Additional Source Comments PLEASE NOTE: Replies to this message will not be received.[facility]
--- OUTSIDE RECORDS SUMMARY | 2024-07-04 09:42 | XMS_ITS | Encounter Summary ---
Author Organization [employer] [facility] Address [address] [place] [address] Care Team Providers Care Cattle Brander Name Role Phone Rob Jovel MD Primary Care Provider Un available Kathy Ellison MD Unavailable Unava ilable Provider, No Primary Primary Care Provider Unava ilable Jose Carlos Larry Primary Care Provider UnavailRob Ramon MD Unavailable Unavaila ble Provider, No Primary Unavailable Unavailable Jose Carlos Larry Unavailable Unavailable Unknown, Provider Primary Care Provider Unavaila ble Kathleen Strauss APRN,MOLD MAKER PLASTER Primary Care Provider [phone] Encounter Details Date Type Department Care Team (Late st Contact Info) Description 11/18/2011 Scan [facility] - Urology Clinic [address] [place] [phone] Social History Tobacco Use Types Packs/Day Years Used Date Smoking Tobacco: Never Assessed Sex and Gender Information Value Date Recorded Sex Assigned at Not on file Legal Sex Male 4:25 PM BIZTALK SOFTWARE DEVELOPER Gender Identity Not on file Sexual Orientation Not on file documented as of this encounter Plan of Treatment Not on file documented as of this encounter Procedures Procedure Name Priority Date/Time Associated Diagnosis Comments OUTSIDE LABS - S 11/18/2011 12:3 3 PM CDT documented in this encounter Results * OUTSIDE LABS - S (11/18/2011 12:33 PM CDT) us Scan Apu PROCEDURE NOTE Final Result documented in this encounter Visit Diagnoses Not on filedocumented in this encounter Care Teams Cattle Brander Relationship Specialty Start Date End Date Rob Jovel MD PCP - General 02/27/06 06/28/15 Provider, No Primary . [place] [id number] PCP - General 06/29/15 07/08/15 Jose Carlos Larry . [place] [id number] PCP - General Oven Baker 07/09/15 11/01/18 Unknown, Provider . [place] [id number] PCP - General 11/02/18 04/16/19 Kathleen Strauss, CLAIM BENEFIT SPECIALIST,MOLD MAKER PLASTER [address] [place] [address] PCP - General Nurse Practitioner Family 04/17/19 Kathy Ellison MD 07/31/17 Rob Jovel MD 07/31/17 Provider, No Primary . [place] [id number] 07/31/17 Jose Carlos Larry 07/31/17 documented as of this encounter Additional Source Comments PLEASE NOTE: Replies to this message will not be received.[facility] and [facility]
--- OUTSIDE RECORDS SUMMARY | 2024-07-04 09:42 | XMS_ITS | Encounter Summary ---
Author Organization [employer] [facility] Address [address] [place] [address] Care Team Providers Care Oncology Rn Name Role Phone Rob Jovel MD Primary Care Provider Un available Kathy Ellison MD Unavailable Unava ilable Provider, No Primary Primary Care Provider Unava ilable Jose Carlos Larry Primary Care Provider UnavailRob Ramon MD Unavailable Unavaila ble Provider, No Primary Unavailable Unavailable Jose Carlos Larry Unavailable Unavailable Unknown, Provider Primary Care Provider Unavaila ble Kathleen Strauss APRN,SENIOR ENGINEERING TECHNICIAN Primary Care Provider [phone]- [phone] Encounter Details Date Type Department Care Team (Late st Contact Info) Description 10/26/2012 Scan [facility] - Urology Clinic [address] [place] [phone] Social History Tobacco Use Types Packs/Day Years Used Date Smoking Tobacco: Never Assessed Sex and Gender Information Value Date Recorded Sex Assigned at Not on file Legal Sex Male 4:25 PM REVIEW ASSISTANT Gender Identity Not on file Sexual Orientation Not on file documented as of this encounter Plan of Treatment Not on file documented as of this encounter Procedures Procedure Name Priority Date/Time Associated Diagnosis Comments OUTSIDE RADIOLOGY - S 11/01/2012 12:35 PM CDT OUTSIDE LABS - S 10/26/2012 12:3 1 PM CDT documented in this encounter Results * OUTSIDE RADIOLOGY - S (11/01/2012 12:35 PM CDT) Anatomical Region Laterality Modality Other us Scan Apu PROCEDURE NOTE Final Result * OUTSIDE LABS - S (10/26/2012 12:31 PM CDT) us Scan Apu PROCEDURE NOTE Final Result documented in this encounter Visit Diagnoses Not on filedocumented in this encounter Care Teams Oncology Rn Relationship Specialty Start Date End Date Rob Jovel MD PCP - General 02/27/06 06/28/15 Provider, No Primary . [place] [id number] PCP - General 06/29/15 07/08/15 Jose Carlos Larry . [place] [id number] PCP - General Concrete Floater 07/09/15 11/01/18 Unknown, Provider . [place] [id number] PCP - General 11/02/18 04/16/19 Kathleen Strauss, SYSTEMS DEVELOPMENT MANAGER,SENIOR ENGINEERING TECHNICIAN [address] [place] [address] PCP - General Nurse Practitioner Family 04/17/19 Kathy Ellison MD 07/31/17 Rob Jovel MD 07/31/17 Provider, No Primary . [place] [id number] 07/31/17 Jose Carlos Larry 07/31/17 documented as of this encounter Additional Source Comments PLEASE NOTE: Replies to this message will not be received.[facility]
--- OUTSIDE RECORDS SUMMARY | 2024-07-04 09:42 | XMS_ITS | Encounter Summary ---
Author Organization [employer] [facility] Address [address] [place] [address] Care Team Providers Care Elastic Cutter Name Role Phone Rob Jovel MD Primary Care Provider Un available Kathy Ellison MD Unavailable Unava ilable Provider, No Primary Primary Care Provider Unava ilable Jose Carlos Larry Primary Care Provider UnavailRob Ramon MD Unavailable Unavaila ble Provider, No Primary Unavailable Unavailable Jose Carlos Larry Unavailable Unavailable Unknown, Provider Primary Care Provider Unavaila ble Kathleen Strauss APRN,COMPRESSOR STATION OPERATOR Primary Care Provider [phone] Encounter Details Date Type Department Care Team (Late st Contact Info) Description 10/15/2012 Scan [facility] - Urology Clinic [address] [place] [phone] Social History Tobacco Use Types Packs/Day Years Used Date Smoking Tobacco: Never Assessed Sex and Gender Information Value Date Recorded Sex Assigned at Not on file Legal Sex Male 4:25 PM MLT Gender Identity Not on file Sexual Orientation Not on file documented as of this encounter Plan of Treatment Not on file documented as of this encounter Procedures Procedure Name Priority Date/Time Associated Diagnosis Comments OUTSIDE LABS - S 10/15/2012 12:3 2 PM CDT documented in this encounter Results * OUTSIDE LABS - S (10/15/2012 12:32 PM CDT) us Scan Apu PROCEDURE NOTE Final Result documented in this encounter Visit Diagnoses Not on filedocumented in this encounter Care Teams Elastic Cutter Relationship Specialty Start Date End Date Rob Jovel MD PCP - General 02/27/06 06/28/15 Provider, No Primary . [place] [id number] PCP - General 06/29/15 07/08/15 Jose Carlos Larry . [place] [id number] PCP - General Plastic Fixture Builder 07/09/15 11/01/18 Unknown, Provider . [place] [id number] PCP - General 11/02/18 04/16/19 Kathleen Strauss, FOIL SPINNER,COMPRESSOR STATION OPERATOR [address] [place] [id number] PCP - General Nurse Practitioner Family 04/17/19 Kathy Ellison MD 07/31/17 Rob Jovel MD 07/31/17 Provider, No Primary . [place] [id number] 07/31/17 Jose Carlos Larry 07/31/17 documented as of this encounter Additional Source Comments PLEASE NOTE: Replies to this message will not be received.[facility] and [facility]
--- OUTSIDE RECORDS SUMMARY | 2024-07-04 09:43 | XMS_ITS | Clinical Summary ---
Author Organization [facility] Address [address], [place] [address] Care Team Providers Care Community Relations Liaison Name Role Phone Unavailable Primary Care Provider Unavailabl e Source Comments You are receiving this document as you are listed as the primary care provider,follow-up provider, or the patient has been referred to you for consultation.This is in compliance with the Medicare and[facility] EHR Incentive Program,which states Providers who transition their patient to another setting of careor provider of care or refers their patient to another provider of care shouldprovide summary care record for each transition of care or referral. [employer] Allergies Active Allergy Reactions Criticality Noted Date Comments Enoxaparin Rash 09/25/2023 Penicillins 10/13/2003 PN: LW Reaction: HIVES Sulfa Antibiotics 10/13/2003 PN: LW Reaction: HIVES Medications Medication Sig Dispensed Refills Start Date End Date Status benazepril (LOTENSIN) 10 MG tablet Take 2 Tablets (20 mg) by mouth daily. 90 3 10/13/2003 Active ATENolol (AKA TENORMIN) 25 MG tablet Take 4 Tablets (100 mg) by mouth daily. 90 3 10/13/2003 Active sertraline (AKA ZOLOFT) 50 MG tablet Take 1 Tablet (50 mg) by mouth daily. 90 10/13/2003 Active aspirin 325 MG tablet Take 1 Tablet (325 mg) by mouth daily. 13 10/13/2003 Active traZODone (AKA DESYREL) 100 MG tablet Take 1 Tablet (100 mg) by mouth daily at bedtime. 90 3 10/13/2003 Active atorvastatin (AKA LIPITOR) 10 MG tablet Take 4 Tablets (40 mg) by mouth daily. 45 3 10/13/2003 Active apixaban (ELIQUIS) 5 MG tablet Take 1 Tablet (5 mg) by mouth daily. Active ferrous sulfate 325 (65 Fe) MG tablet Take 1 Tablet (325 mg) by mouth daily with meal. Active nitroglycerin (NITROSTAT) 0.[address] 1 Tablet (0.4 mg) under tongue every 5 minutes as needed for Chest Pain. If no relief after 5 min call 911;continue 1 tab every 5 min max 3 tab Active amLODIPine (NORVASC) 5 MG tablet Take 1 Tablet (5 mg) by mouth daily. Active gabapentin (NEURONTIN) 300 MG capsule Take 1 Capsule (300 mg) by mouth two times a day. 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 Encounters Date Type Department Care Team Description 04/25/2024 Notes/Orders [facility] [address] [place] [address] Kevin Peterson MD 04/25/2024 Notes/Orders [facility] [address] [place] [address] Kevin Peterson MD from Last 3 Months Social History Tobacco Use Types Packs/Day Years Used Date Smoking Tobacco: Never Tobacco Cessation:Counseling Given: Not Answered Alcohol Use Standard Drinks/Week Comments Yes 0 (1 standard drink = 0.6 oz pure alcohol) 2beers and 1 glass of wine daily Sex and Gender Information Value Date Recorded Sex Assigned at Not on file Gender Identity Not on file Sexual Orientation Not on file Last Filed Vital Signs Vital Sign Reading Time Taken Comments Blood Pressure 117/68 09/26/2023 4:15 PM CDT Pulse 66 09/26/2023 4:15 PM CDT Temperature 36.8 C (98.2 F) 09/26/2023 3:43 PM CDT Respiratory Rate 16 09/26/2023 4:15 PM CDT Oxygen Saturation 94% 09/26/2023 4:15 PM CDT Inhaled Oxygen Concentration - - Weight 99.3 kg (219 lb) 09/26/2023 12:15 PM CDT Height 175.3 cm (5' 9) 09/26/2023 12:15 PM CDT Body Mass Index 32.34 09/26/2023 12:15 PM CDT Plan of Treatment Health Maintenance Due Date Last Done Comments RSV (1 - 1-dose 75+ series) 2017 DTaP/Tdap/Td (3 - Tdap) 05/21/2023 05/21/2013, 01/21 Medicare Annual Wellness Visit 07/03/2023 COVID-19 Vaccine ( season) 2024 10/26/2023, 05/05/2023, 03/14/2022, Additional history exists Influenza (#1) 2024 05/16/2023, 04/02, 03/31/2021, Additional history exists Hib Aged Out 01/22/1992 No longer eligi ble based on patient's age to complete this topic Zoster/Shingles Completed 06/11/2018, 08/2017, 04/17/2012 Pneumococcal 65+ Yrs Completed 11/03/2021, 04/04/2018, 03/20/2017, Additional history exists HepA Aged Out No longer eligi ble based on patient's age to complete this topic HepB Aged Out No longer eligi ble based on patient's age to complete this topic IPV (Polio) Aged Out No longer eligi ble based on patient's age to complete this topic MCV4 Aged Out No longer eligi ble based on patient's age to complete this topic Advance Directives * Full Code (Latest Code Status on File) Date Activated Date Inactivated Comments 09/26/2023 1:36 PM 09/26/2023 7:08 PM
--- OUTSIDE RECORDS SUMMARY | 2024-07-04 09:43 | XMS_ITS | Encounter Summary ---
Author Organization [facility] Address [address], [place] [address] Care Team Providers Care Featheredge Machine Operator Name Role Phone Unavailable Primary Care Provider Unavailabl e Encounter Details Date Type Department Care Team (Late st Contact Info) Description 04/25/2024 Notes/Orders [facility] [address] [place] [address] Kevin Peterson MD [facility] [place] [id number] Social History Tobacco Use Types Packs/Day Years Used Date Smoking Tobacco: Never Alcohol Use Standard Drinks/Week Comments [...]
--- OUTSIDE RECORDS SUMMARY | 2024-07-04 09:43 | XMS_ITS | Encounter Summary ---
Author Organization [facility] Address [address], [place] [address] Care Team Providers Care Home Service Advisor Name Role Phone Unavailable Primary Care Provider Unavailabl e Encounter Details Date Type Department Care Team (Late st Contact Info) Description 01/24/2024 Notes/Orders [facility] [address] [place] [address] Kevin Peterson MD [facility] [address] [place] [id number] Social History Tobacco Use Types Packs/Day Years [...]
--- OUTSIDE RECORDS SUMMARY | 2024-07-04 09:43 | XMS_ITS | Encounter Summary ---
Author Organization [employer] [facility] Address [address] [place] [address] Care Team Providers Care Clinical Team Manager Name Role Phone Rob Jovel MD Primary Care Provider Un available Kathy Ellison MD Unavailable Unava ilable Provider, No Primary Primary Care Provider Unava ilable Jose Carlos Larry Primary Care Provider UnavailRob Ramon MD Unavailable Unavaila ble Provider, No Primary Unavailable Unavailable Jose Carlos Larry Unavailable Unavailable Unknown, Provider Primary Care Provider Unavaila ble Kathleen Strauss APRN,STREETCAR OPERATOR Primary Care Provider +1- [phone] Encounter Details Date Type Department Care Team (Late st Contact Info) Description 08/23/2011 Scan [facility] - Urology Clinic [address] [place] [phone] Social History Tobacco Use Types Packs/Day Years Used Date Smoking Tobacco: Never Assessed Sex and Gender Information Value Date Recorded Sex Assigned at Not on file Legal Sex Male 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 Gender Identity Not on file Sexual Orientation Not on file documented as of this encounter Plan of Treatment Not on file documented as of this encounter Procedures Procedure Name Priority Date/Time Associated Diagnosis Comments OUTSIDE RADIOLOGY - S 08/23/2011 12:34 PM MANAGER MULTICULTURAL documented in this encounter Results * OUTSIDE RADIOLOGY - S (08/23/2011 12:34 PM MANAGER MULTICULTURAL) Anatomical Region Laterality Modality Other us Scan Apu PROCEDURE NOTE Final Result documented in this encounter Visit Diagnoses Not on filedocumented in this encounter Care Teams Clinical Team Manager Relationship Specialty Start Date End Date Rob Jovel MD PCP - General 02/27/06 06/28/15 Provider, No Primary . [place] [id number] PCP - General 06/29/15 07/08/15 Jose Carlos Larry . [place] [id number] PCP - General Learning Solutions Specialist 07/09/15 11/01/18 Unknown, Provider . [place] [id number] PCP - General 11/02/18 04/16/19 Kathleen Strauss, [place] MIXER OPERATOR,STREETCAR OPERATOR [address] [place] [id number] PCP - General Nurse Practitioner Family 04/17/19 Kathy Ellison MD 07/31/17 Rob Jovel MD 07/31/17 Provider, No Primary . [place] [id number] 07/31/17 Jose Carlos Larry 07/31/17 documented as of this encounter Additional Source Comments PLEASE NOTE: Replies to this message will not be received.[facility] and [facility]
--- OUTSIDE RECORDS SUMMARY | 2024-07-04 09:43 | XMS_ITS | Encounter Summary ---
Author Organization [facility] Address [address] [address] Care Team Providers Care Brand Mgr Name Role Phone Unavailable Primary Care Provider Unavailabl e Encounter Details Date Type Department Care Team (Late st Contact Info) Description 04/25/2024 Notes/Orders [facility] [address] [place] [address] Kevin Peterson MD [facility] [place] [id number] Social History Tobacco Use Types Packs/Day Years [...]
== END 2024-07-10 09:36 | disposition home or self-care (01) ==
PROVIDERS: Visit Provider Orthopaedic Surgery
DX: M70.22 Olecranon bursitis, left elbow (principal); R53.1 Weakness; M25.522 Pain in left elbow; Z51.89 Encounter for other specified aftercare
CPT/HCPCS: 97035; 97110; 97140; 97165; X5282

== ENCOUNTER 2025-06-23 15:15 | Outpatient (RCR) | payer MEDICARE, SELFPAY | END 2025-07-01 16:15 | disposition home or self-care (01) | PROVIDERS: Visit Provider Psychiatry & Neurology Vascular Neurology | DX: M48.062 Spinal stenosis, lumbar region with neurogenic claudication (principal); Z51.89 Encounter for other specified aftercare | CPT/HCPCS: 97110; 97161 ==